=== PATIENT | female | born 1995 | race Caucasian/White ===

== ENCOUNTER 2017-01-18 23:29 | Emergency (ER) | payer MEDICAID ==
[~2017-01-18] VITALS: Ht 165.1 cm; Wt 75.0 kg
[~2017-01-18 23:29] MED LIST: ACYC400T2 PO; BACTDS PO; CIPR500T4 PO; IBUP-1542 PO; IBUP800T25 PO; INSU100I14 SQ; INSU100V14 SC; INSU100V18 SQ; INSU100V19 SQ; INSU500V SC; METF500T4 PO; MICO1KIT VAGINAL; NPH,100V SQ; NPH,100V10 SQ; ONDA4TAB35 PO; PREN-15 PO; PREN1TAB49 PO; PREN1TAB62 PO; ZOF8 PO
[2017-01-19] VITALS: Ht 165.1 cm; Wt 75.0 kg
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
[2017-01-19] MEDS ORDERED: ACETAMINOPHEN 325 MG TAB PO STA (03:35)
[2017-01-19 03:40] LABS: URINE BLOOD (Dip) POC Negative (NEGATIVE)
[2017-01-19] MEDS ORDERED: ONDANSETRON 4 MG INJ IV STA (03:40)
[2017-01-19 04:00] VITALS: TEMP 99.3
[2017-01-19] MEDS ORDERED: SOD CHLORIDE 0.9% 2,330 ML IV ONE (04:00)
[2017-01-19] MEDS ORDERED: morphine 2 MG INJ IV ONE (04:00)
[2017-01-19 04:25] LABS: ADD SCAN DIFF NO
--- NOTE | 2017-01-19 04:27 | RADRPT ---
PROCEDURE: XR Chest. CLINICAL INDICATION: Sepsis TECHNIQUE: Portable single view of the chest COMPARISON: 12/06/2015 FINDINGS: The cardiomediastinal silhouette appears within normal limits. The lungs are clear and no pleural e ffusion or significant edema is seen. No bony abnormality is seen. IMPRESSION: No definite acute pulmonary disease. RPTAT: HLBE Anum Stephenson Physician Date Time Electronically viewed and signed by Anum Stephenson, Physician on 01/19/2017 04:26 LE/
[2017-01-19 04:39] LABS: ALBUMIN 3.8 g/dl (3.3-4.9)
[2017-01-19 04:40] LABS: INR 1.02; POTASSIUM 3.2 mmol/L (3.5-5.1); PROTIME 13.4 Sec (12.2-14.2)
[2017-01-19 04:41] LABS: PARTIAL THROMBOPLASTIN TIME 35.4 Sec (25.0-35.0)
[2017-01-19 04:42] LABS: ALBUMIN/GLOBULIN RATIO 1.02; BILIRUBIN,INDIRECT 1.8 mg/dl (0-1.1); BILIRUBIN,TOTAL 1.8 mg/dl (0.2-1.3); CREATININE 0.4 mg/dl (0.44-1.00); TOTAL PROTEIN 7.5 g/dl (6.1-8.1)
[2017-01-19 04:43] LABS: CALCIUM 9.1 mg/dl (8.4-10.2)
[2017-01-19 04:44] LABS: BASOPHILS % 0.5 % (0.0-2.0); HEMOGLOBIN 13.5 g/dl (12.0-16.0); LYMPHOCYTES % 22.9 % (15.0-51.0); MEAN CORPUSCULAR HEMOGLOBIN 28.1 pg (29.0-33.0); MEAN CORPUSCULAR HGB CONC 34.6 g/dl (32.0-37.0); MEAN CORPUSCULAR VOLUME 81.3 fl (82.0-101.0); MEAN PLATELET VOLUME 11.7 fl (7.4-10.4); MONOCYTE # 0.6 10^3/ul (0.3-0.9); MONOCYTES % 6.7 % (0.0-11.0); NEUTROPHIL # 5.9 10^3/ul (1.6-7.5); NEUTROPHILS % 69.4 % (39.0-77.0); PLATELET COUNT 255 10^3/UL (140-415); RED CELL DISTRIBUTION WIDTH 11.8 % (11.5-14.5); WHITE BLOOD COUNT 8.5 10^3/ul (4.8-10.8)
[2017-01-19] MEDS ORDERED: INSULIN LISPRO 100 UNIT/ML VIAL SC ONE (05:00)
[2017-01-19] MEDS ORDERED: POTASSIUM CHLORIDE (SR) 20 MEQ TAB PO ONE (05:07)
[2017-01-19] MEDS ORDERED: OSLT75C PO (05:29)
[2017-01-19] MEDS ORDERED: IBUP-1542 PO (05:29)
[2017-01-19] MEDS ORDERED: IBUPROFEN 600 MG TAB PO ONE (05:30)
[2017-01-19] MEDS ORDERED: KETOROLAC 30 MG INJ IV ONE (05:31)
[2017-01-19 06:00] VITALS: BP 113/79; PULSE 90; RESP 16
== END 2017-01-19 08:03 | disposition home or self-care (01) ==
LOC: E/R 23:29
DX: R50.9 Fever, unspecified (principal); R11.2 Nausea with vomiting, unspecified; J02.9 Acute pharyngitis, unspecified; R05 Cough; E11.65 Type 2 diabetes mellitus with hyperglycemia; E87.6 Hypokalemia; R10.30 Lower abdominal pain, unspecified; Z79.84 Long term (current) use of oral hypoglycemic drugs; Z79.4 Long term (current) use of insulin
CPT/HCPCS: 36415; 71010; 80053; 81003; 82962; 83605; 84484; 85025; 85610; 85730; 87040; 87086; 93005; 96372; 96374; 96375; J1815; J1885; J2270; J2405; J7030; Z7502; Z7610

== ENCOUNTER 2017-03-03 21:29 | Emergency (ER) | payer MEDICAID ==
[~2017-03-03] VITALS: Ht 160 cm; Wt 73.5 kg
[~2017-03-03 21:29] MED LIST changes: +OSLT75C PO
[2017-03-03 21:33] VITALS: Ht 160 cm; Wt 73.5 kg
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
[2017-03-03 22:55] VITALS: RESP 18
[2017-03-03] MEDS ORDERED: ACETAMINOPHEN 500 MG TAB PO STA (22:57)
[2017-03-03] MEDS ORDERED: ALPRAZOLAM 1 MG TAB PO ONE (23:00)
--- NOTE | 2017-03-04 01:14 | RADRPT ---
PROCEDURE: CT Brain without contrast. CLINICAL INDICATION: HEAD INJURY TECHNIQUE: A multiplanar CT of the brain was performed on a CT scanner utilizing axial imaging fro m the skull base through the vertex without IV contrast. The CTDIvol is 5.01 mGy and the DLP is 720 .23 mGycm. One or more of the following dose reduction techniques were utilized: Automated exposur e control, adjustment of the mA and/or kV according to patient size, use of iterative reconstruction technique. COMPARISON: None FINDINGS: No evidence of intracranial hemorrhage or abnormal extra-axial fluid collection. The brain parenchyma is normal attenuation morphology with preservation of snowden white differentiatio n and age appropriate size of the ventricles and subarachnoid spaces. The basal cisterns, posterior fossa contents, brainstem, craniocervical junction, orbits, pituitary axis, paranasal sinuses, mastoid air cells, and calvarium are unremarkable. IMPRESSION: 1. No intracranial hemorrhage or acute intracranial abnormality. RPTAT:AAJJ Physician Jennie Date Time Electronically viewed and signed by Physician Jennie on 03/04/2017 01:14 CLYDE/
[2017-03-04] MEDS ORDERED: HYDR-906 PO (01:21)
[2017-03-04] MEDS ORDERED: ACET500C5 PO (01:21)
[2017-03-04 01:22] VITALS: PULSE 110
[2017-03-04] MEDS ORDERED: TRAM50TA2 PO (01:46)
== END 2017-03-04 01:49 | disposition home or self-care (01) ==
LOC: FTE 21:29
DX: S00.03XA Contusion of scalp, initial encounter (principal); E11.9 Type 2 diabetes mellitus without complications; R42 Dizziness and giddiness; Y04.2XXA Assault by strike against or bumped into by another person, initial encounter; Y92.9 Unspecified place or not applicable; Z79.84 Long term (current) use of oral hypoglycemic drugs; Z79.4 Long term (current) use of insulin
CPT/HCPCS: 70450; 93005; Z7610

== ENCOUNTER 2017-04-01 20:15 | Emergency (ER) | payer MEDICAID ==
[~2017-04-01] VITALS: Ht 160 cm; Wt 74.5 kg
[~2017-04-01 20:15] MED LIST changes: +TRAM50TA2 PO
[2017-04-01 20:21] VITALS: Ht 160 cm; Wt 74.5 kg
[2017-04-01] MEDS ORDERED: AZITHROMYCIN 250 MG TAB PO ONE (22:00)
--- NOTE | 2017-04-01 22:24 | ERD ---
ER Documentation Chief Complaint Date/Time DATE: 04/01/17 TIME: 22:17 Chief Complaint Pt with Vaginal cyst x 2 days. denies fever HPI 21-year-old female presents to emergency department for complaints of a bump on the left labia noticed 2 days ago, was shaving, noted a bump there, it was painful, sharp pain, 6/10 scale, is worse upon touching the area, noted to be draining some purulent discharge at this time. Patient denies any fever or chills. Patient denies any bumps in other part of the body. Patient also was recently sexually active but was not using any protection, patient's partner was diagnosed chlamydia, wants to be treated. Patient does not have any vaginal itching or vaginal discharge. Patient denies any dyspareunia. Patient is abdominal pain, flank pain. Patient currently has IUD. ROS All systems reviewed and are negative except as per history of present illness. Medications Home Meds Active Scripts Tramadol HCl (Tramadol HCl) 50 Mg Tablet, 50 MG PO Q6 Y for SEVERE PAIN LEVEL 7- 10, #20 TAB Prov:ISAIAS GARCES NP 03/04/17 Ibuprofen* (Motrin*) 600 Mg Tab, 600 MG PO Q6H Y for PAIN AND OR ELEVATED TEMP, #20 TAB Prov:BRETT DISLA MD 01/19/17 Oseltamivir Phosphate* (Tamiflu*) 75 Mg Capsule, 75 MG PO BID for 5 Days, CAP Prov:BRETT DISLA MD 01/19/17 Miconazole/Skin Cleanser No.17 (Monistat 3 Combo Pack) 1 Each Kit, 1 EACH VAGINAL QPM, #1 KIT Prov:CRISTIAN RUEDA NP 06/29/16 Ibuprofen* (Motrin*) 800 Mg Tab, 800 MG PO Q8 Y for PAIN AND OR ELEVATED TEMP, # 30 TAB Prov:CRISTIAN RUEDA NP 06/29/16 Sulfamethoxazole-Trimethoprim* (Bactrim* DS) 800-160 Mg Tab, 1 TAB PO BID for 10 Days, TAB Prov:JERONIMO RUSSELL PA-C 02/21/16 Ondansetron Hcl* (Zofran* ODT) 8 mg -ODT Tab.disper, 8 MG PO Q6 Y for NAUSEA AND /OR VOMITING, #10 TAB Prov:KATHRYN HOGAN MD 01/23/16 Ibuprofen* (Motrin*) 600 Mg Tab, 600 MG PO Q6, #20 TAB Prov:KATHRYN HOGAN MD 01/23/16 Ciprofloxacin Hcl* (Ciprofloxacin Hcl*) 500 Mg Tablet, 500 MG PO BID for 10 Days , TAB Prov:KATHRYN HOGAN MD 01/23/16 Ondansetron Hcl* (Zofran* ODT) 4 mg -ODT Tab.disper, 4 MG PO Q8 Y for NAUSEA AND /OR VOMITING, #30 TAB Prov:ISAIAS GARCES DISTANCE EDUCATION COORDINATOR 12/06/15 Ibuprofen* (Motrin*) 600 Mg Tab, 600 MG PO Q6H Y for PAIN AND OR ELEVATED TEMP, #30 TAB Prov:ISAIAS GARCES DISTANCE EDUCATION COORDINATOR 12/06/15 Reported Medications Insulin Lispro (Humalog) 100 U/Ml Insuln.pen, 0 SQ BREAKFAST AND DINNER 04/03/13 Metformin* (Glucophage*) 500 Mg Tab, 500 MG PO BID 04/03/13 Vit-Iron Fumarate-FA ( Vitamin Tablet) 1 Each Tablet, 1 EACH PO DAILY 04/03/13 Metformin* (Glucophage*) 500 Mg Tab, 500 MG PO AC MEALS 03/29/13 Nph, Human Insulin Isophane (Humulin N) 100 Units/Ml Vial, 32 SQ AC MEALS 03/29/13 Insulin Regular, Human (Humulin R) 100 Units/Ml Vial, 24 SC BEFORE MEALS 03/29/13 Vit/Fe Fumarate/Fa (Prenafirst Tablet) 1 Tab Tablet, 1 TAB PO 03/29/13 Metformin* (Glucophage*) 500 Mg Tab, 500 MG PO BID, #1 03/01/13 Insulin Lispro (Humalog) 100 U/Ml Vial, 0 SQ 03/01/13 Nph, Human Insulin Isophane* (Novolin N*) 100 U/Ml Vial, 0 SQ 03/01/13 Acyclovir* (Acyclovir*) 400 Mg Tablet, 400 MG PO TID, #1 02/15/13 Vits W-Ca,Fe,Fa(<1MG) () 1 Tab Tablet, 1 TAB PO DAILY, #1 02/15/13 Vits W-Ca,Fe,Fa(<1MG) () 1 Tab Tablet, 1 TAB PO DAILY 12/16/12 Insulin Glargine,Hum.rec.anlog (Lantus) 100 U/Ml Vial, 0 SQ 10/16/12 Insulin Regular, Human (Humulin R) 100 Units/Ml Vial, 0 SC 10/16/12 Allergies Allergies: Coded Allergies: Penicillins (Verified Allergy, Intermediate, SWELLING, 04/16/13) PMhx/Soc History of Surgery: Yes (c section 2012) Anesthesia Reaction: No Hx Neurological Disorder: No Hx Respiratory Disorders: No Hx Cardiac Disorders: No Hx Psychiatric Problems: No Hx Miscellaneous Medical Probl: Yes (diabetes) Hx Alcohol Use: Yes (socially) Hx Substance Use: Yes (marijuana occasionally) Hx Tobacco Use: No Smoking Status: Never smoker FmHx Family History: No coronary disease, No diabetes, No other Physical Exam Vitals Vital Signs Date Time Temp Pulse Resp B/P Pulse Ox O2 Delivery O2 Flow Rate FiO2 04/01/17 20:21 98.9 103 18 130/84 95 Physical Exam GENERAL: The patient is well developed and appropriate for usual state of health, in no apparent distress. CHEST: Clear to auscultation bilaterally. There are no rales, wheezes or rhonchi. HEART: Regular rate and rhythm. No murmurs, clicks, rubs or gallops. No S3 or S4. ABDOMEN: Soft, nontender and nondistended. Good bowel sounds. No rebound or guarding. No gross peritonitis. No gross organomegaly or masses. No Redd sign or McBurney point tenderness. BACK: No midline or flank tenderness. EXTREMITIES: Equal pulses bilaterally. There is no peripheral clubbing, cyanosis or edema. No focal swelling or erythema. Full range of motion. Grossly neurovascularly intact. NEURO: Alert and oriented. Cranial nerves 2-12 intact. Motor strength in all 4 extremities with 5/5 strength. Sensation grossly intact. Normal speech and gait. SKIN: There is no apparent rash or petechia. The skin is warm and dry. HEMATOLOGIC AND LYMPHATIC: There is no evidence of excessive bruising or lymphedema. No gross cervical, axillary, or inguinal lymphadenopathy. Vaginal: Noted draining soft tissue abscess of the left labial area, nonfluctuant, tender on palpation,the other labia is normal, nontender, no masses in the Bartholin's is noted. No other lesions noted. No cervical motion tenderness. No adnexal tenderness noted. No vaginal discharge noted. Results 24 hrs Laboratory Tests Test 04/01/17 22:32 Bedside Urine pH (LAB) 5.5 Bedside Urine Protein (LAB) Negative Bedside Urine Glucose (UA) 0.50% Bedside Urine Ketones (LAB) Negative Bedside Urine Blood Trace-intact Bedside Urine Nitrite (LAB) Negative Bedside Urine Leukocyte Esterase (L Negative Current Medications Medications (Trade) Dose Ordered Sig/Nikko Route PRN Reason Start Time Stop Time Status Last Admin Dose Admin Azithromycin (Zithromax) 1,000 mg ONCE ONCE PO 04/01/17 22:00 04/01/17 22:01 DC 04/01/17 22:03 Azithromycin was given here in emergency department for prophylactic treatment for chlamydia. Procedures/MDM Medical decision making: Patient's symptoms of cystitis consistent with a soft tissue abscess, most likely started as a folliculitis. It does not involve the Bartholin's gland, no cyst or abscess noted. No symptoms of sepsis at this time. Patient appears well and is hemodynamically stable. The abscess is already draining, incision and drainage site indicated at this time. Patient was treated prophylactically for chlamydia with azithromycin. Patient is allergic to penicillin. Patient will be given clindamycin to help treatment with a soft tissue abscess, is advised to follow-up with primary care doctor in 2 days for reevaluation of symptoms. Patient was advised to return to emergency department for any worsening symptoms. Departure Diagnosis: Primary Impression: Soft tissue abscess Additional Impression: STD exposure Condition: Stable Patient Instructions: Abscess, Antiobiotic Treatment Only, Std, Suspected ( Culture Only) ISAIAS GARCES NP April 01, 2017 22:23
[2017-04-01 22:31] LABS: URINE BLOOD (Dip) POC Trace-intact (NEGATIVE)
[2017-04-01] MEDS ORDERED: CLIN-73 PO (22:48)
[2017-04-01] MEDS ORDERED: HYDR-906 PO (22:48)
== END 2017-04-01 23:04 | disposition home or self-care (01) ==
LOC: FTE 20:15
DX: N76.4 Abscess of vulva (principal); E11.9 Type 2 diabetes mellitus without complications; Z20.2 Contact with and (suspected) exposure to infections with a predominantly sexual mode of transmission; Z79.4 Long term (current) use of insulin; Z79.84 Long term (current) use of oral hypoglycemic drugs
CPT/HCPCS: 81003; 87591; Z7502; Z7610; 99284

== ENCOUNTER 2017-10-07 10:06 | Emergency (ER) | payer MEDICAID ==
[~2017-10-07] VITALS: Ht 160 cm; Wt 79.5 kg
[~2017-10-07 10:06] MED LIST changes: +CLIN-73 PO; +HYDR-906 PO
[2017-10-07 10:08] VITALS: Ht 160 cm; Wt 79.5 kg
[2017-10-07] MEDS ORDERED: HYDR-906 PO (10:33)
[2017-10-07] MEDS ORDERED: HC30CR25 TOP (10:33)
[2017-10-07] MEDS ORDERED: BEN25 PO (10:33)
[2017-10-07] MEDS ORDERED: PRED20TA PO (10:33)
--- NOTE | 2017-10-07 10:40 | ERD ---
ER Documentation Chief Complaint Chief Complaint Vaginal irritation HPI 22-year-old female presents with vaginal irritation after using Bath bombs from [employer] Saturday night which was 3 nights ago. The patient woke up the next day with a blistering rash to her labia bilaterally that is described as burning. She reports that she went to the [place] emergency department and they did a wet mount and ruled out any bacterial or yeast infections and they recommended to apply diaper cream, as well as topical lidocaine. She states that the lidocaine only made the burning pain worse, and she has also been taking ibuprofen. She reports swelling to both sides, she denies any other application to the area. She has never used these basketball products before. She has not had any vaginal discharge, vaginal bleeding, pelvic pain otherwise. ROS All systems reviewed and are negative except as per history of present illness. Medications Home Meds Active Scripts Diphenhydramine Hcl* (Benadryl*) 25 Mg Cap, 25 MG PO Q6, #30 CAP Prov:BRITTANY JIMENEZ PA-C 10/07/17 Hydrocodone/Acetaminophen ([place] 5-325 Tablet) 1 Each Tablet, 1 TAB PO Q6H Y for PAIN, #10 TAB Prov:BRITTANY JIMENEZ PA-C 10/07/17 Hydrocortisone* Topical (Hydrocortisone* Topical) 2.5%-28.3 Gm Cream..g., 1 APPLIC TOP BID, #1 TUB Prov:BRITTANY JIMENEZ PA-C 10/07/17 Prednisone* (Prednisone*) 20 Mg Tab, 40 MG PO DAILY for 4 Days, TAB Prov:BRITTANY JIMENEZ PA-C 10/07/17 Hydrocodone/Acetaminophen ([place] 5-325 Tablet) 1 Each Tablet, 1 TAB PO Q6H Y for SEVERE PAIN LEVEL 7-10, #20 TAB Prov:ISAIAS GARCES NP 04/01/17 Clindamycin Hcl* (Clindamycin Hcl*) 300 Mg Capsule, 300 MG PO TID for 10 Days, CAP Prov:ISAIAS GARCES NP 04/01/17 Tramadol HCl (Tramadol HCl) 50 Mg Tablet, 50 MG PO Q6 Y for SEVERE PAIN LEVEL 7- 10, #20 TAB Prov:ISAIAS GARCES NP 03/04/17 Ibuprofen* (Motrin*) 600 Mg Tab, 600 MG PO Q6H Y for PAIN AND OR ELEVATED TEMP, #20 TAB Prov:BRETT DISLA MD 01/19/17 Oseltamivir Phosphate* (Tamiflu*) 75 Mg Capsule, 75 MG PO BID for 5 Days, CAP Prov:BRETT DISLA MD 01/19/17 Miconazole/Skin Cleanser No.17 (Monistat 3 Combo Pack) 1 Each Kit, 1 EACH VAGINAL QPM, #1 KIT Prov:CRISTIAN RUEDA NP 06/29/16 Ibuprofen* (Motrin*) 800 Mg Tab, 800 MG PO Q8 Y for PAIN AND OR ELEVATED TEMP, # 30 TAB Prov:CRISTIAN RUEDA NP 06/29/16 Sulfamethoxazole-Trimethoprim* (Bactrim* DS) 800-160 Mg Tab, 1 TAB PO BID for 10 Days, TAB Prov:JERONIMO RUSSELL PA-C 02/21/16 Ondansetron Hcl* (Zofran* ODT) 8 mg -ODT Tab.disper, 8 MG PO Q6 Y for NAUSEA AND /OR VOMITING, #10 TAB Prov:KATHRYN HOGAN MD 01/23/16 Ibuprofen* (Motrin*) 600 Mg Tab, 600 MG PO Q6, #20 TAB Prov:KATHRYN HOGAN MD 01/23/16 Ciprofloxacin Hcl* (Ciprofloxacin Hcl*) 500 Mg Tablet, 500 MG PO BID for 10 Days , TAB Prov:KATHRYN HOGAN MD 01/23/16 Ondansetron Hcl* (Zofran* ODT) 4 mg -ODT Tab.disper, 4 MG PO Q8 Y for NAUSEA AND /OR VOMITING, #30 TAB Prov:ISAIAS GARCES NP 12/06/15 Ibuprofen* (Motrin*) 600 Mg Tab, 600 MG PO Q6H Y for PAIN AND OR ELEVATED TEMP, #30 TAB Prov:ISAIAS GARCES NP 12/06/15 Reported Medications Insulin Lispro (Humalog) 100 U/Ml Insuln.pen, 0 SQ BREAKFAST AND DINNER 04/03/13 Metformin* (Glucophage*) 500 Mg Tab, 500 MG PO BID 04/03/13 Vit-Iron Fumarate-FA ( Vitamin Tablet) 1 Each Tablet, 1 EACH PO DAILY 04/03/13 Metformin* (Glucophage*) 500 Mg Tab, 500 MG PO AC MEALS 03/29/13 Nph, Human Insulin Isophane (Humulin N) 100 Units/Ml Vial, 32 SQ AC MEALS 03/29/13 Insulin Regular, Human (Humulin R) 100 Units/Ml Vial, 24 SC BEFORE MEALS 03/29/13 Vit/Fe Fumarate/Fa (Prenafirst Tablet) 1 Tab Tablet, 1 TAB PO 03/29/13 Metformin* (Glucophage*) 500 Mg Tab, 500 MG PO BID, #1 03/01/13 Insulin Lispro (Humalog) 100 U/Ml Vial, 0 SQ 03/01/13 Nph, Human Insulin Isophane* (Novolin N*) 100 U/Ml Vial, 0 SQ 03/01/13 Acyclovir* (Acyclovir*) 400 Mg Tablet, 400 MG PO TID, #1 02/15/13 Vits W-Ca,Fe,Fa(<1MG) () 1 Tab Tablet, 1 TAB PO DAILY, #1 02/15/13 Vits W-Ca,Fe,Fa(<1MG) () 1 Tab Tablet, 1 TAB PO DAILY 12/16/12 Insulin Glargine,Hum.rec.anlog (Lantus) 100 U/Ml Vial, 0 SQ 10/16/12 Insulin Regular, Human (Humulin R) 100 Units/Ml Vial, 0 SC 10/16/12 Allergies Allergies: Coded Allergies: Penicillins (Verified Allergy, Intermediate, SWELLING, 04/16/13) PMhx/Soc History of Surgery: Yes (c section 2012) Anesthesia Reaction: No Hx Neurological Disorder: No Hx Respiratory Disorders: No Hx Cardiac Disorders: No Hx Psychiatric Problems: No Hx Miscellaneous Medical Probl: Yes (diabetes) Hx Alcohol Use: Yes (socially) Hx Substance Use: Yes (marijuana occasionally) Hx Tobacco Use: No Physical Exam Vitals Vital Signs Date Time Temp Pulse Resp B/P Pulse Ox O2 Delivery O2 Flow Rate FiO2 10/07/17 10:08 98.3 115 18 151/96 96 Physical Exam General: Well-developed, well-nourished. The patient appears in no acute distress. HEENT: Head is normocephalic, atraumatic. No scleral icterus. Neck: Supple. Nontender. Lungs: Clear to auscultation. Normal air movement. Heart: Regular rate and rhythm. S1 and S2 are normal. No murmurs, gallops, or rubs. Abdomen: Nondistended. Nontender, soft exam: Internal portion of bilateral labia have blisters, it is erythematous, swollen and tender to palpation. There are no vesicles, no bleeding, no discharge Extremities: No clubbing or cyanosis. Moving extremities x 4. No weakness. Neurologic: Alert and oriented 3. No focal deficits. Normal speech and gait. Skin: Normal turgor. No rash or lesions. Results 24 hrs Current Medications Medications (Trade) Dose Ordered Sig/Nikko Route PRN Reason Start Time Stop Time Status Last Admin Dose Admin Acetaminophen/ Hydrocodone Bitart (Sharon (5/325)) 1 tab ONCE ONCE PO 10/07/17 11:00 10/07/17 11:01 Procedures/MDM 22-year-old female presents with reaction to the bath forms to the labia, patient has contact dermatitis. There are no lesions indicate HSV, abscess, cellulitis. The blisters appeared to be almost burn like, and she will be advised to discontinue the diaper cream as well as the lidocaine. The patient will be advised to apply a light amount of hydrocortisone cream twice a day with prednisone and Benadryl and she will also be given Sharon additionally for pain control. Departure Diagnosis: Primary Impression: Contact dermatitis Condition: Good Patient Instructions: Contact Dermatitis BRITTANY JIMENEZ PA-C Oct 07, 2017 10:40
[2017-10-07] MEDS ORDERED: HYDROCODONE/APAP (5/325) TAB PO ONE (11:00)
[2017-10-08] MEDS ORDERED: VALA10004 PO (10:33)
[2017-10-08] MEDS ORDERED: HYDR-906 PO (10:33)
[2017-10-08] MEDS ORDERED: AZIT250T94 PO (10:43)
== END 2017-10-07 10:42 | disposition home or self-care (01) ==
LOC: FTE 10:06
DX: L25.0 Unspecified contact dermatitis due to cosmetics (principal); E11.9 Type 2 diabetes mellitus without complications; Z79.4 Long term (current) use of insulin; Z79.84 Long term (current) use of oral hypoglycemic drugs
CPT/HCPCS: Z7502; Z7610; 99284

== ENCOUNTER 2017-10-08 09:47 | Emergency (ER) | payer MEDICAID ==
[~2017-10-08] VITALS: Wt 79.5 kg
[~2017-10-08 09:47] MED LIST changes: +BEN25 PO; +HC30CR25 TOP; +PRED20TA PO
[2017-10-08] MEDS ORDERED: KETOROLAC 60 MG INJ IM STA (10:11)
--- NOTE | 2017-10-08 10:11 | ERD ---
ER Documentation Chief Complaint Chief Complaint vaginal pain, irritation and pelvic pain HPI 22y/o female patient with no significant medical history, presents to the emergency department c/o gradual onset of vaginal irritation. The pain is sharp and burning, rated 9/10, radiated to perineum. The symptoms are probably caused by an allergic reaction to a soap and are associated with dysuria. Aggravating factors: Urinating. Alleviating factors: local ice. Denies fever, chills, N/V/ D. No history of previous episodes. Treatment attempted: Oral prednisone and topical steroids. Previous evaluation: Yesterday in the ER. History was given by patient. ROS SYSTEMIC symptoms: no fever, chills, no night sweats, no weight loss EYE symptoms: No blurred vision, no eye discharge OTOLARYNGEAL symptoms: No hearing loss. No ear pain, no sore throat CARDIOVASCULAR symptoms: No chest pain or discomfort, no palpitations. PULMONARY symptoms: No dyspnea, no cough, no wheezing. GASTROINTESTINAL symptoms: No abdominal pain, no nausea, no vomiting, no diarrhea MUSCULOSKELETAL symptoms: No arthralgias, no muscle aches. NEUROLOGY symptoms: No confusion, no syncope, no numbness or tingling. SKIN: No rashes Medications Home Meds Active Scripts Azithromycin* (Zithromax*) 250 Mg Tablet, 250 MG PO .ALANACK DIRECTED, #6 TAB TAKE 500 MG (2 TABS) THE FIRST DAY THEN 250 MG (1 TAB) DAYS 2-5 Prov:NORIS ALVAREZ MD 10/08/17 Hydrocodone/Acetaminophen ([place] 5-325 Tablet) 1 Each Tablet, 1 TAB PO Q6H Y for PAIN, #20 TAB Prov:NORIS ALVAREZ MD 10/08/17 Valacyclovir HCl (Valtrex) 1,000 Mg Tablet, 1000 MG PO TID for 7 Days, TAB Prov:NORIS ALVAREZ MD 10/08/17 Diphenhydramine Hcl* (Benadryl*) 25 Mg Cap, 25 MG PO Q6, #30 CAP Prov:BRITTANY JIMENEZ PA-C 10/07/17 Hydrocodone/Acetaminophen ([place] 5-325 Tablet) 1 Each Tablet, 1 TAB PO Q6H Y for PAIN, #10 TAB Prov:BRITTANY JIMENEZ PA-C 10/07/17 Hydrocortisone* Topical (Hydrocortisone* Topical) 2.5%-28.3 Gm Cream..g., 1 APPLIC TOP BID, #1 TUB Prov:BRITTANY JIMENEZ PA-C 10/07/17 Prednisone* (Prednisone*) 20 Mg Tab, 40 MG PO DAILY for 4 Days, TAB Prov:BRITTANY JIMENEZ PA-C 10/07/17 Hydrocodone/Acetaminophen ([place] 5-325 Tablet) 1 Each Tablet, 1 TAB PO Q6H Y for SEVERE PAIN LEVEL 7-10, #20 TAB Prov:ISAIAS GARCES NP 04/01/17 Clindamycin Hcl* (Clindamycin Hcl*) 300 Mg Capsule, 300 MG PO TID for 10 Days, CAP Prov:ISAIAS GARCES NP 04/01/17 Tramadol HCl (Tramadol HCl) 50 Mg Tablet, 50 MG PO Q6 Y for SEVERE PAIN LEVEL 7- 10, #20 TAB Prov:ISAIAS GARCES NP 03/04/17 Ibuprofen* (Motrin*) 600 Mg Tab, 600 MG PO Q6H Y for PAIN AND OR ELEVATED TEMP, #20 TAB Prov:BRETT DISLA MD 01/19/17 Oseltamivir Phosphate* (Tamiflu*) 75 Mg Capsule, 75 MG PO BID for 5 Days, CAP Prov:BRETT DISLA MD 01/19/17 Miconazole/Skin Cleanser No.17 (Monistat 3 Combo Pack) 1 Each Kit, 1 EACH VAGINAL QPM, #1 KIT Prov:CRISTIAN RUEDA NP 06/29/16 Ibuprofen* (Motrin*) 800 Mg Tab, 800 MG PO Q8 Y for PAIN AND OR ELEVATED TEMP, # 30 TAB Prov:CRISTIAN RUEDA NP 06/29/16 Sulfamethoxazole-Trimethoprim* (Bactrim* DS) 800-160 Mg Tab, 1 TAB PO BID for 10 Days, TAB Prov:JERONIMO RUSSELL PA-C 02/21/16 Ondansetron Hcl* (Zofran* ODT) 8 mg -ODT Tab.disper, 8 MG PO Q6 Y for NAUSEA AND /OR VOMITING, #10 TAB Prov:KATHRYN HOGAN MD 01/23/16 Ibuprofen* (Motrin*) 600 Mg Tab, 600 MG PO Q6, #20 TAB Prov:KATHRYN HOGAN MD 01/23/16 Ciprofloxacin Hcl* (Ciprofloxacin Hcl*) 500 Mg Tablet, 500 MG PO BID for 10 Days , TAB Prov:KATHRYN HOGAN MD 01/23/16 Ondansetron Hcl* (Zofran* ODT) 4 mg -ODT Tab.disper, 4 MG PO Q8 Y for NAUSEA AND /OR VOMITING, #30 TAB Prov:ISAIAS GARCES NP 12/06/15 Ibuprofen* (Motrin*) 600 Mg Tab, 600 MG PO Q6H Y for PAIN AND OR ELEVATED TEMP, #30 TAB Prov:ISAIAS GARCES NP 12/06/15 Reported Medications Insulin Lispro (Humalog) 100 U/Ml Insuln.pen, 0 SQ BREAKFAST AND DINNER 04/03/13 Metformin* (Glucophage*) 500 Mg Tab, 500 MG PO BID 04/03/13 Vit-Iron Fumarate-FA ( Vitamin Tablet) 1 Each Tablet, 1 EACH PO DAILY 04/03/13 Metformin* (Glucophage*) 500 Mg Tab, 500 MG PO AC MEALS 03/29/13 Nph, Human Insulin Isophane (Humulin N) 100 Units/Ml Vial, 32 SQ AC MEALS 03/29/13 Insulin Regular, Human (Humulin R) 100 Units/Ml Vial, 24 SC BEFORE MEALS 03/29/13 Vit/Fe Fumarate/Fa (Prenafirst Tablet) 1 Tab Tablet, 1 TAB PO 03/29/13 Metformin* (Glucophage*) 500 Mg Tab, 500 MG PO BID, #1 03/01/13 Insulin Lispro (Humalog) 100 U/Ml Vial, 0 SQ 03/01/13 Nph, Human Insulin Isophane* (Novolin N*) 100 U/Ml Vial, 0 SQ 03/01/13 Acyclovir* (Acyclovir*) 400 Mg Tablet, 400 MG PO TID, #1 02/15/13 Vits W-Ca,Fe,Fa(<1MG) () 1 Tab Tablet, 1 TAB PO DAILY, #1 02/15/13 Vits W-Ca,Fe,Fa(<1MG) () 1 Tab Tablet, 1 TAB PO DAILY 12/16/12 Insulin Glargine,Hum.rec.anlog (Lantus) 100 U/Ml Vial, 0 SQ 10/16/12 Insulin Regular, Human (Humulin R) 100 Units/Ml Vial, 0 SC 10/16/12 Allergies Allergies: Coded Allergies: Penicillins (Verified Allergy, Intermediate, SWELLING, 04/16/13) PMhx/Soc History of Surgery: Yes (c section 2012) Anesthesia Reaction: No Hx Neurological Disorder: No Hx Respiratory Disorders: No Hx Cardiac Disorders: No Hx Psychiatric Problems: No Hx Miscellaneous Medical Probl: Yes (diabetes) Hx Alcohol Use: Yes (socially) Hx Substance Use: Yes (marijuana occasionally) Hx Tobacco Use: No Physical Exam Vitals Vital Signs Date Time Temp Pulse Resp B/P Pulse Ox O2 Delivery O2 Flow Rate FiO2 10/08/17 09:49 97.0 112 20 122/73 98 Physical Exam Patient is in moderate distress due to pain, vital signs stable. Alert and fully oriented. EYES: PERRLA, EOMI, Sclera and conjunctiva appear normal. EARS: Canals clear, tympanic membranes WNL THROAT: Normal oropharynx. NECK: Supple, No lymphadenopathy. Full ROM without pain or tenderness. HEART: RRR, no rubs, murmurs, clicks or gallops. LUNGS: Clear to auscultation. ABDOMEN: Soft, non-tender without masses or hepatosplenomegaly. : Marked erythema and edema vulvar area, with diffuse vesicular lesions. EXTREMITIES: No edema bilaterally. Results 24 hrs Current Medications Medications (Trade) Dose Ordered Sig/Nikko Route PRN Reason Start Time Stop Time Status Last Admin Dose Admin Lidocaine (Lmx 4% Plus) 1 applic ONCE ONCE TOP 10/08/17 10:30 10/08/17 10:31 DC Ketorolac Tromethamine (Toradol) 60 mg ONCE STAT IM 10/08/17 10:11 10/08/17 10:13 DC 10/08/17 10:18 Procedures/MDM 22y/o female patient unremarkable medical history, presents to the ED c/o vulvar irritation for 5 days. Vital signs stable, Physical exam consistent with vaginitis with superimposed vesicular rash. Differential diagnosis include but not limited to: Infection bacterial/viral/fungal, Autoimmune contact dermatitis. Physical examination and clinical presentation consistent most likely with herpetic vaginitis likely with superimposed bacterial infection . During the ED course the patient received treatment with Toradol presenting overall improvement of the symptoms. Results and clinical impression discussed with patient who agrees with management. The patient is stable to be treated outpatient and will be discharged home with a Rx for Valtrex and amoxicillin Side effects of prescribed medications (headache, rash, nausea, vomiting, diarrhea) were reviewed. Side effects of prescribed opiates (drowsiness, habituation) were reviewed. The patient was instructed to follow up with the primary care provider in the next 48h. If symptoms persist, worsen or new symptoms develop, then patient should return to the ED immediately. Instructions explained and given to patient in Colombian with acknowledgment and demonstrated understanding. Disclaimer: Inadvertent spelling and grammatical errors are likely due to EHR/ dictation software use and do not reflect on the overall quality of patient care. Also, please note that the electronic time recorded on this note does not necessarily reflect the actual time of the patient encounter. Departure Diagnosis: Primary Impression: Pelvic pain in female Additional Impressions: Vaginitis Herpes infection Condition: Stable Patient Instructions: For Teens: Understanding HPV and Genital Warts Additional Instructions: Thank you very much for allowing us to participate in your care. Your health and safety is our top priority at [facility]. Have prescriptions filled and follow precisely the directions on the label. Follow-up with primary care provider during the next 4 days and bring all the information and medications prescribed. If illness has not improved in 2 days, then make an appointment with primary care provider. If the provider is unavailable, return to the Emergency Department immediately. NORIS ALVAREZ MD Oct 08, 2017 10:11
[2017-10-08] MEDS ORDERED: LIDOCAINE 4% CR TOP ONE (10:30)
[2017-10-08] MEDS ORDERED: VALA10004 PO (10:33)
[2017-10-08] MEDS ORDERED: HYDR-906 PO (10:33)
[2017-10-08] MEDS ORDERED: AZIT250T94 PO (10:43)
== END 2017-10-08 11:43 | disposition home or self-care (01) ==
LOC: FTE 09:47
DX: N76.0 Acute vaginitis (principal); B00.9 Herpesviral infection, unspecified; E11.9 Type 2 diabetes mellitus without complications; Z79.4 Long term (current) use of insulin; Z79.84 Long term (current) use of oral hypoglycemic drugs
CPT/HCPCS: 96372; J1885; Z7502; Z7610

== ENCOUNTER 2017-10-10 18:42 | Emergency (ER) | payer MEDICAID ==
[~2017-10-10] VITALS: Ht 162.6 cm; Wt 79.5 kg
[~2017-10-10 18:42] MED LIST changes: +AZIT250T94 PO; +VALA10004 PO
[2017-10-10 18:44] VITALS: Ht 162.6 cm; Wt 79.5 kg
[2017-10-10] MEDS ORDERED: KETOROLAC 30 MG INJ IV STA (19:54)
[2017-10-10] MEDS ORDERED: HYDROmorphONE 1 MG/ML SYG IM STA (19:54)
[2017-10-10] MEDS ORDERED: CEFTRIAXONE 1 GM/50 ML (PMX) 50 ML IVPB ONE (20:00)
[2017-10-10] MEDS ORDERED: HYDROmorphONE 1 MG/ML SYG IV STA (20:23)
[2017-10-10 20:42] LABS: BASOPHIL # 0.1 10^3/ul (0.0-0.1); BASOPHILS % 0.4 % (0.0-2.0); EOSINOPHILS % 0.1 % (0.0-7.0); HEMATOCRIT 37.5 % (37.0-47.0); LYMPHOCYTES # 3.3 10^3/ul (0.8-2.9); LYMPHOCYTES % 24.9 % (15.0-51.0); MEAN CORPUSCULAR HEMOGLOBIN 28.7 pg (29.0-33.0); MEAN CORPUSCULAR HGB CONC 34.7 g/dl (32.0-37.0); MEAN CORPUSCULAR VOLUME 82.8 fl (82.0-101.0); MEAN PLATELET VOLUME 11.9 fl (7.4-10.4); MONOCYTE # 0.9 10^3/ul (0.3-0.9); MONOCYTES % 6.7 % (0.0-11.0); NEUTROPHIL # 8.8 10^3/ul (1.6-7.5); NEUTROPHILS % 67.6 % (39.0-77.0); PLATELET COUNT 246 10^3/UL (140-415); RED BLOOD COUNT 4.53 10^6/ul (4.20-5.40); RED CELL DISTRIBUTION WIDTH 12.1 % (11.5-14.5); WHITE BLOOD COUNT 13.1 10^3/ul (4.8-10.8)
[2017-10-10 21:03] LABS: ALBUMIN 3.7 g/dl (3.3-4.9); ALBUMIN/GLOBULIN RATIO 1.15; BILIRUBIN,INDIRECT 0.7 mg/dl (0-1.1); BILIRUBIN,TOTAL 0.7 mg/dl (0.2-1.3); CALCIUM 9.1 mg/dl (8.4-10.2); CREATININE 0.62 mg/dl (0.44-1.00); POTASSIUM 4.1 mmol/L (3.5-5.1); TOTAL PROTEIN 6.9 g/dl (6.1-8.1)
[2017-10-10 21:04] LABS: ADD UMIC NO; UR ASCORBIC ACID NEGATIVE (NEGATIVE); UR BILIRUBIN (Dip) NEGATIVE (NEGATIVE); UR BLOOD (Dip) NEGATIVE (NEGATIVE); UR CLARITY CLEAR (CLEAR); UR COLOR YELLOW (YELLOW); UR GLUCOSE (Dip) 3+ mg/dL (NEGATIVE); UR KETONES (Dip) 1+ mg/dL (NEGATIVE); UR LEUKOCYTE ESTERASE (Dip) NEGATIVE Leu/ul (NEGATIVE); UR NITRITE (Dip) NEGATIVE (NEGATIVE); UR TOTAL PROTEIN (Dip) NEGATIVE (NEGATIVE); UR UROBILINOGEN (Dip) NEGATIVE (NEGATIVE)
--- NOTE | 2017-10-10 21:43 | RADRPT ---
PROCEDURE: US bladder CLINICAL INDICATION: Able to void bladder TECHNIQUE: Multiple real-time images were acquired COMPARISON: Pelvic ultrasound 06/29/2016 FINDINGS: No ureteral jets are seen in the bladder lumen. The bladder wall thickness is within normal limits. Prevoid bladder volume measures approximately 1118 ml. No post void bladder images were acquired. IMPRESSION: 1. Large bladder volume. No post void bladder images acquired. 2. No ureteral jets seen in the bladder lumen, a finding of uncertain etiology and clinical signific ance. RPTAT: TT Physician Jeffrey Date Time Electronically viewed and signed by Physician Jeffrey on 10/10/2017 21:43 JS/
[2017-10-10] MEDS ORDERED: CEPH-443 PO (21:52)
[2017-10-10] MEDS ORDERED: OXYC-279 PO (21:55)
[2017-10-10] MEDS ORDERED: AZITHROMYCIN 250 MG TAB PO ONE (22:00)
--- NOTE | 2017-10-10 23:59 | ERD ---
ER Documentation Chief Complaint Chief Complaint painful urination x 5 days HPI 22-year-old female complaining of severe herpes outbreak within the vaginal region. Patient states that she has extensive open sores and urinating is because extensive pain secondary to the urine hitting the open sores. Patient denies any fevers. Patient is currently taking valacyclovir but has had continued open sores and pain. ROS All systems reviewed and are negative except as per history of present illness. Medications Home Meds Active Scripts Oxycodone HCl/Acetaminophen (Percocet 5-325 mg Tablet) 1 Each Tablet, 1 EACH PO DAILY, #10 TAB Prov:ENA TAYLOR PA-C 10/10/17 Cephalexin* (Keflex*) 500 Mg Capsule, 500 MG PO QID for 7 Days, CAP Prov:ENA TAYLOR PA-C 10/10/17 Azithromycin* (Zithromax*) 250 Mg Tablet, 250 MG PO .ZPACK DIRECTED, #6 TAB TAKE 500 MG (2 TABS) THE FIRST DAY THEN 250 MG (1 TAB) DAYS 2-5 Prov:NORIS ALVAREZ MD 10/08/17 Hydrocodone/Acetaminophen ([place] 5-325 Tablet) 1 Each Tablet, 1 TAB PO Q6H Y for PAIN, #20 TAB Prov:NORIS ALVAREZ MD 10/08/17 Valacyclovir HCl (Valtrex) 1,000 Mg Tablet, 1000 MG PO TID for 7 Days, TAB Prov:NORIS ALVAREZ MD 10/08/17 Diphenhydramine Hcl* (Benadryl*) 25 Mg Cap, 25 MG PO Q6, #30 CAP Prov:BRITTANY JIMENEZ PA-C 10/07/17 Hydrocodone/Acetaminophen ([place] 5-325 Tablet) 1 Each Tablet, 1 TAB PO Q6H Y for PAIN, #10 TAB Prov:BRITTANY JIMENEZ PA-C 10/07/17 Hydrocortisone* Topical (Hydrocortisone* Topical) 2.5%-28.3 Gm Cream..g., 1 APPLIC TOP BID, #1 TUB Prov:BRITTANY JIMENEZ PA-C 10/07/17 Prednisone* (Prednisone*) 20 Mg Tab, 40 MG PO DAILY for 4 Days, TAB Prov:BRITTANY JIMENEZ PA-C 11/20/17 Hydrocodone/Acetaminophen ([place] 5-325 Tablet) 1 Each Tablet, 1 TAB PO Q6H Y for SEVERE PAIN LEVEL 7-10, #20 TAB Prov:ISAIAS GARCES CONE PICKER 04/01/17 Clindamycin Hcl* (Clindamycin Hcl*) 300 Mg Capsule, 300 MG PO TID for 10 Days, CAP Prov:ISAIAS GARCES CONE PICKER 04/01/17 Tramadol HCl (Tramadol HCl) 50 Mg Tablet, 50 MG PO Q6 Y for SEVERE PAIN LEVEL 7- 10, #20 TAB Prov:ISAIAS GARCES CONE PICKER 03/04/17 Ibuprofen* (Motrin*) 600 Mg Tab, 600 MG PO Q6H Y for PAIN AND OR ELEVATED TEMP, #20 TAB Prov:BRETT DISLA MD 01/19/17 Oseltamivir Phosphate* (Tamiflu*) 75 Mg Capsule, 75 MG PO BID for 5 Days, CAP Prov:BRETT DISLA MD 01/19/17 Miconazole/Skin Cleanser No.17 (Monistat 3 Combo Pack) 1 Each Kit, 1 EACH VAGINAL QPM, #1 KIT Prov:CRISTIAN RUEDA NP 06/29/16 Ibuprofen* (Motrin*) 800 Mg Tab, 800 MG PO Q8 Y for PAIN AND OR ELEVATED TEMP, # 30 TAB Prov:CRISTIAN RUEDA CONE PICKER 06/29/16 Sulfamethoxazole-Trimethoprim* (Bactrim* DS) 800-160 Mg Tab, 1 TAB PO BID for 10 Days, TAB Prov:JERONIMO RUSSELL PA-C 02/21/16 Ondansetron Hcl* (Zofran* ODT) 8 mg -ODT Tab.disper, 8 MG PO Q6 Y for NAUSEA AND /OR VOMITING, #10 TAB Prov:KATHRYN HOGAN MD 01/23/16 Ibuprofen* (Motrin*) 600 Mg Tab, 600 MG PO Q6, #20 TAB Prov:KATHRYN HOGAN MD 01/23/16 Ciprofloxacin Hcl* (Ciprofloxacin Hcl*) 500 Mg Tablet, 500 MG PO BID for 10 Days , TAB Prov:KATHRYN HOGAN MD 01/23/16 Ondansetron Hcl* (Zofran* ODT) 4 mg -ODT Tab.disper, 4 MG PO Q8 Y for NAUSEA AND /OR VOMITING, #30 TAB Prov:ISAIAS GARCES ROJAS Jack. CONE PICKER 12/06/15 Ibuprofen* (Motrin*) 600 Mg Tab, 600 MG PO Q6H Y for PAIN AND OR ELEVATED TEMP, #30 TAB Prov:ISAIAS GARCESYesica CONE PICKER 12/06/15 Reported Medications Insulin Lispro (Humalog) 100 U/Ml Insuln.pen, 0 SQ BREAKFAST AND DINNER 04/03/13 Metformin* (Glucophage*) 500 Mg Tab, 500 MG PO BID 04/03/13 Vit-Iron Fumarate-FA ( Vitamin Tablet) 1 Each Tablet, 1 EACH PO DAILY 04/03/13 Metformin* (Glucophage*) 500 Mg Tab, 500 MG PO AC MEALS 03/29/13 Nph, Human Insulin Isophane (Humulin N) 100 Units/Ml Vial, 32 SQ AC MEALS 03/29/13 Insulin Regular, Human (Humulin R) 100 Units/Ml Vial, 24 SC BEFORE MEALS 03/29/13 Vit/Fe Fumarate/Fa (Prenafirst Tablet) 1 Tab Tablet, 1 TAB PO 03/29/13 Metformin* (Glucophage*) 500 Mg Tab, 500 MG PO BID, #1 03/01/13 Insulin Lispro (Humalog) 100 U/Ml Vial, 0 SQ 03/01/13 Nph, Human Insulin Isophane* (Novolin N*) 100 U/Ml Vial, 0 SQ 03/01/13 Acyclovir* (Acyclovir*) 400 Mg Tablet, 400 MG PO TID, #1 02/15/13 Vits W-Ca,Fe,Fa(<1MG) () 1 Tab Tablet, 1 TAB PO DAILY, #1 02/15/13 Vits W-Ca,Fe,Fa(<1MG) () 1 Tab Tablet, 1 TAB PO DAILY 12/16/12 Insulin Glargine,Hum.rec.anlog (Lantus) 100 U/Ml Vial, 0 SQ 10/16/12 Insulin Regular, Human (Humulin R) 100 Units/Ml Vial, 0 SC 10/16/12 Allergies Allergies: Coded Allergies: Penicillins (Verified Allergy, Intermediate, SWELLING, 04/16/13) PMhx/Soc History of Surgery: Yes () Anesthesia Reaction: No Hx Neurological Disorder: No Hx Respiratory Disorders: No Hx Cardiac Disorders: No Hx Psychiatric Problems: No Hx Miscellaneous Medical Probl: Yes (DM,IUD) Hx Alcohol Use: Yes (Socially) Hx Substance Use: Yes (Marijuana occasionally) Hx Tobacco Use: No Smoking Status: Unknown if ever smoked Physical Exam Vitals Vital Signs Date Time Temp Pulse Resp B/P Pulse Ox O2 Delivery O2 Flow Rate FiO2 10/10/17 18:44 97.8 101 20 135/68 100 Physical Exam GENERAL: The patient is well-appearing, well-nourished, in no acute distress CHEST: Clear to auscultation bilaterally. There are no rales, wheezes or rhonchi. HEART: Regular rate and rhythm. No murmurs, clicks, rubs or gallops. No S3 or S4. ABDOMEN:Soft, nontender and nondistended. Good bowel sounds. No rebound or guarding. No gross peritonitis. No gross organomegaly or masses. No Redd sign or McBurney point tenderness. SKIN: There is no apparent rash or petechiae. The skin is warm and dry. : Diffuse open sores within the vaginal region. Beefy red edges superficial openings. Purulent discharge. Result Diagram: 10/10/17200610/10/172006 Results 24 hrs Laboratory Tests Test 10/10/17 20:07 10/10/17 20:45 White Blood Count 13.110^3/ul Red Blood Count 4.5310^6/ul Hemoglobin 13.0g/dl Hematocrit 37.5% Mean Corpuscular Volume 82.8fl Mean Corpuscular Hemoglobin 28.7pg Mean Corpuscular Hemoglobin Concent 34.7g/dl Red Cell Distribution Width 12.1% Platelet Count 66102^3/UL Mean Platelet Volume 11.9fl Neutrophils % 67.6% Lymphocytes % 24.9% Monocytes % 6.7% Eosinophils % 0.1% Basophils % 0.4% Nucleated Red Blood Cells % 0.0/100WBC Neutrophils # 8.810^3/ul Lymphocytes # 3.310^3/ul Monocytes # 0.910^3/ul Eosinophils # 0.010^3/ul Basophils # 0.110^3/ul Nucleated Red Blood Cells # 0.010^3/ul Sodium Level 137mmol/L Potassium Level 4.1mmol/L Chloride Level 98mmol/L Carbon Dioxide Level 28mmol/L Anion Gap 15 Blood Urea Nitrogen 11mg/dl Creatinine 0.62mg/dl Glucose Level 367mg/dl Calcium Level 9.1mg/dl Total Bilirubin 0.7mg/dl Direct Bilirubin 0.00mg/dl Indirect Bilirubin 0.7mg/dl Aspartate Amino Transf (AST/SGOT) 14IU/L Alanine Aminotransferase (ALT/SGPT) 33IU/L Alkaline Phosphatase 76IU/L Total Protein 6.9g/dl Albumin 3.7g/dl Globulin 3.20g/dl Albumin/Globulin Ratio 1.15 Lipase 26U/L Serum HCG, Qualitative NEGATIVE Urine Color YELLOW Urine Clarity CLEAR Urine pH 5.0 Urine Specific [place] 1.040 Urine Ketones 1+mg/dL Urine Nitrite NEGATIVEmg/dL Urine Bilirubin NEGATIVEmg/dL Urine Urobilinogen NEGATIVEmg/dL Urine Leukocyte Esterase NEGATIVELeu/ul Urine Hemoglobin NEGATIVEmg/dL Urine Glucose 3+mg/dL Urine Total Protein NEGATIVEmg/dl Current Medications Medications (Trade) Dose Ordered Sig/Nikko Route PRN Reason Start Time Stop Time Status Last Admin Dose Admin Hydromorphone HCl (Dilaudid) 1 mg ONCE STAT IM 10/10/17 19:54 10/10/17 20:24 DC Ketorolac Tromethamine 30 mg 30 mg ONCE STAT IV 10/10/17 19:54 10/10/17 19:55 DC 10/10/17 20:19 Ceftriaxone Sodium (Rocephin) 50 ml @ 100 mls/hr ONCE ONCE IVPB 10/10/17 20:00 10/10/17 20:29 DC 10/10/17 20:22 Hydromorphone HCl (Dilaudid) 1 mg ONCE STAT IV 10/10/17 20:23 10/10/17 20:25 DC 10/10/17 20:29 Azithromycin (Zithromax) 1,000 mg ONCE ONCE PO 10/10/17 22:00 10/10/17 22:01 DC 10/10/17 22:06 Procedures/MDM DIAGNOSTIC IMAGING REPORT Patient: AMARILIS FERNANDEZ : 1995 Age: 22 Sex: F MR #: [id number] DOS: 10/10/171951 Ordering MD: MAIKOL TAYLOR PA-C Location: [facility] Room/Bed: PROCEDURE: US bladder CLINICAL INDICATION: Able to void bladder TECHNIQUE: Multiple real-time images were acquired COMPARISON: Pelvic ultrasound 06/29/2016 FINDINGS: No ureteral jets are seen in the bladder lumen. The bladder wall thickness is within normal limits. Prevoid bladder volume measures approximately 1118 ml. No post void bladder images were acquired. IMPRESSION: 1. Large bladder volume. No post void bladder images acquired. 2. No ureteral jets seen in the bladder lumen, a finding of uncertain etiology and clinical significance. ER Course: Rocephin and azithromycin given in ED. Thomas catheter placed without complication. 1500 cc of urine removed from bladder. MDM: 22-year-old female complaining of severe pain with urination secondary to her herpes outbreak. I discharge patient with Thomas catheter she has been unable to urinate secondary to severe pain. Patient will return in 2 days for reevaluation. Patient did have purulent discharge noted around the open sores so I will treat for secondary bacterial infection. Patient's urine was sent for chlamydia screening. I have low suspicion for PID. Patient does not have severe abdominal pelvic pain and vital signs are stable. I have low suspicion for acute kidney injury as BUN and creatinine are within normal limits. I have low suspicion for UTI or pyelonephritis. Patient is discharged with strict ER precautions are recommended to follow-up with primary care within 1-2 days for close evaluation. Patient is told symptoms change or worsen to return to ER. All questions answered at discharge Departure Diagnosis: Primary Impression: Herpes simplex virus (HSV) infection of vagina Condition: Stable Patient Instructions: Herpes Genitalis, Hsv: Type Ii Referrals: [facility] YOU HAVE RECEIVED A MEDICAL SCREENING EXAM AND THE RESULTS INDICATE THAT YOU DO NOT HAVE A CONDITION THAT REQUIRES URGENT TREATMENT IN THE EMERGENCY DEPARTMENT. FURTHER EVALUATION AND TREATMENT OF YOUR CONDITION CAN WAIT UNTIL YOU ARE SEEN IN YOUR DOCTORS OFFICE WITHIN THE NEXT 1-2 DAYS. IT IS YOUR RESPONSIBILITY TO MAKE AN APPOINTMENT FOR FOLOW-UP CARE. IF YOU HAVE A PRIMARY DOCTOR --you should call your primary doctor and schedule an appointment IF YOU DO NOT HAVE A PRIMARY DOCTOR YOU CAN CALL OUR PHYSICIAN REFERRAL HOTLINE AT IF YOU CAN NOT AFFORD TO SEE A PHYSICIAN YOU CAN CHOSE FROM THE FOLLOWING [facility] [address] [facility] [address] [facility] [address] [facility] [address] [facility] [phone] [facility] [facility] [address] Additional Instructions: FOLLOW UP WITH YOUR PRIMARY CARE PHYSICIAN TOMORROW.Return to this facility if you are not improving as expected. ENA TAYLOR PA-C Oct 10, 2017 23:59
== END 2017-10-10 22:40 | disposition home or self-care (01) ==
LOC: FTE 18:42
DX: B00.9 Herpesviral infection, unspecified (principal); E11.9 Type 2 diabetes mellitus without complications; Z79.4 Long term (current) use of insulin; Z79.84 Long term (current) use of oral hypoglycemic drugs
CPT/HCPCS: 36415; 76856; 80053; 81003; 83690; 84703; 85025; 87591; 96374; 96375; J0696; J1170; J1885; Z7502; Z7610

== ENCOUNTER 2017-10-11 10:55 | Inpatient (IN) | payer MEDICAID ==
[~2017-10-11] VITALS: Ht 160 cm; Wt 80.0 kg
[~2017-10-11 10:55] MED LIST changes: +CEPH-443 PO; +OXYC-279 PO
[2017-10-11] MEDS ORDERED: ONDANSETRON 4 MG INJ IV STA (13:04)
[2017-10-11] MEDS ORDERED: morphine 4 MG/ML VIAL IV STA (13:04)
--- NOTE | 2017-10-11 13:29 | ERD ---
ER Documentation Chief Complaint Chief Complaint VAGINAL PAIN, BLEEDING HPI This a 22-year-old female who presents the emergency department today complaining of vaginal pain. She was diagnosed with herpes and she is taking the medication she has been prescribed. patient states that the pain medication that she is taking at home is not helping her. Denies any new symptoms. ROS All systems reviewed and are negative except as per history of present illness. Medications Home Meds Active Scripts Oxycodone HCl/Acetaminophen (Percocet 5-325 mg Tablet) 1 Each Tablet, 1 EACH PO DAILY, #10 TAB Prov:ENA TAYLOR PA-C 10/10/17 Cephalexin* (Keflex*) 500 Mg Capsule, 500 MG PO QID for 7 Days, CAP Prov:ENA TAYLOR PA-C 10/10/17 Azithromycin* (Zithromax*) 250 Mg Tablet, 250 MG PO .ZPACK DIRECTED, #6 TAB TAKE 500 MG (2 TABS) THE FIRST DAY THEN 250 MG (1 TAB) DAYS 2-5 Prov:NORIS ALVAREZ MD 10/08/17 Hydrocodone/Acetaminophen ([place] 5-325 Tablet) 1 Each Tablet, 1 TAB PO Q6H Y for PAIN, #20 TAB Prov:NORIS ALVAREZ MD 10/08/17 Valacyclovir HCl (Valtrex) 1,000 Mg Tablet, 1000 MG PO TID for 7 Days, TAB Prov:NORIS ALVAREZ MD 10/08/17 Diphenhydramine Hcl* (Benadryl*) 25 Mg Cap, 25 MG PO Q6, #30 CAP Prov:BRITTANY JIMENEZ PA-C 10/07/17 Hydrocodone/Acetaminophen ([place] 5-325 Tablet) 1 Each Tablet, 1 TAB PO Q6H Y for PAIN, #10 TAB Prov:BRITTANY JIMENEZ PA-C 10/07/17 Hydrocortisone* Topical (Hydrocortisone* Topical) 2.5%-28.3 Gm Cream..g., 1 APPLIC TOP BID, #1 TUB Prov:BRITTANY JIMENEZ PA-C 10/07/17 Prednisone* (Prednisone*) 20 Mg Tab, 40 MG PO DAILY for 4 Days, TAB Prov:BRITTANY JIMENEZ PA-C 10/07/17 Hydrocodone/Acetaminophen ([place] 5-325 Tablet) 1 Each Tablet, 1 TAB PO Q6H Y for SEVERE PAIN LEVEL 7-10, #20 TAB Prov:ISAIAS GARCES SINGLE SPINDLE SCREW MACHINE OPERATOR 04/01/17 Clindamycin Hcl* (Clindamycin Hcl*) 300 Mg Capsule, 300 MG PO TID for 10 Days, CAP Prov:ISAIAS GARCES SINGLE SPINDLE SCREW MACHINE OPERATOR 04/01/17 Tramadol HCl (Tramadol HCl) 50 Mg Tablet, 50 MG PO Q6 Y for SEVERE PAIN LEVEL 7- 10, #20 TAB Prov:ISAIAS GARCES SINGLE SPINDLE SCREW MACHINE OPERATOR 03/04/17 Ibuprofen* (Motrin*) 600 Mg Tab, 600 MG PO Q6H Y for PAIN AND OR ELEVATED TEMP, #20 TAB Prov:BRETT DISLA MD 01/19/17 Oseltamivir Phosphate* (Tamiflu*) 75 Mg Capsule, 75 MG PO BID for 5 Days, CAP Prov:BRETT DISLA MD 01/19/17 Miconazole/Skin Cleanser No.17 (Monistat 3 Combo Pack) 1 Each Kit, 1 EACH VAGINAL QPM, #1 KIT Prov:CRISTIAN RUEDA NP 06/29/16 Ibuprofen* (Motrin*) 800 Mg Tab, 800 MG PO Q8 Y for PAIN AND OR ELEVATED TEMP, # 30 TAB Prov:CRISTIAN RUEDA NP 06/29/16 Sulfamethoxazole-Trimethoprim* (Bactrim* DS) 800-160 Mg Tab, 1 TAB PO BID for 10 Days, TAB Prov:JERONIMO RUSSELL PA-C 02/21/16 Ondansetron Hcl* (Zofran* ODT) 8 mg -ODT Tab.disper, 8 MG PO Q6 Y for NAUSEA AND /OR VOMITING, #10 TAB Prov:KATHRYN HOGAN MD 01/23/16 Ibuprofen* (Motrin*) 600 Mg Tab, 600 MG PO Q6, #20 TAB Prov:KATHRYN HOGAN MD 01/23/16 Ciprofloxacin Hcl* (Ciprofloxacin Hcl*) 500 Mg Tablet, 500 MG PO BID for 10 Days , TAB Prov:KATHRYN HOGAN MD 01/23/16 Ondansetron Hcl* (Zofran* ODT) 4 mg -ODT Tab.disper, 4 MG PO Q8 Y for NAUSEA AND /OR VOMITING, #30 TAB Prov:ISAIAS GARCES MAE Jack. SINGLE SPINDLE SCREW MACHINE OPERATOR 12/06/15 Ibuprofen* (Motrin*) 600 Mg Tab, 600 MG PO Q6H Y for PAIN AND OR ELEVATED TEMP, #30 TAB Prov:ISAIAS GARCES. SINGLE SPINDLE SCREW MACHINE OPERATOR 12/06/15 Reported Medications Insulin Lispro (Humalog) 100 U/Ml Insuln.pen, 0 SQ BREAKFAST AND DINNER 04/03/13 Metformin* (Glucophage*) 500 Mg Tab, 500 MG PO BID 04/03/13 Vit-Iron Fumarate-FA ( Vitamin Tablet) 1 Each Tablet, 1 EACH PO DAILY 04/03/13 Metformin* (Glucophage*) 500 Mg Tab, 500 MG PO AC MEALS 03/29/13 Nph, Human Insulin Isophane (Humulin N) 100 Units/Ml Vial, 32 SQ AC MEALS 03/29/13 Insulin Regular, Human (Humulin R) 100 Units/Ml Vial, 24 SC BEFORE MEALS 03/29/13 Vit/Fe Fumarate/Fa (Prenafirst Tablet) 1 Tab Tablet, 1 TAB PO 03/29/13 Metformin* (Glucophage*) 500 Mg Tab, 500 MG PO BID, #1 03/01/13 Insulin Lispro (Humalog) 100 U/Ml Vial, 0 SQ 03/01/13 Nph, Human Insulin Isophane* (Novolin N*) 100 U/Ml Vial, 0 SQ 03/01/13 Acyclovir* (Acyclovir*) 400 Mg Tablet, 400 MG PO TID, #1 02/15/13 Vits W-Ca,Fe,Fa(<1MG) () 1 Tab Tablet, 1 TAB PO DAILY, #1 02/15/13 Vits W-Ca,Fe,Fa(<1MG) () 1 Tab Tablet, 1 TAB PO DAILY 12/16/12 Insulin Glargine,Hum.rec.anlog (Lantus) 100 U/Ml Vial, 0 SQ 10/16/12 Insulin Regular, Human (Humulin R) 100 Units/Ml Vial, 0 SC 10/16/12 Allergies Allergies: Coded Allergies: Penicillins (Verified Allergy, Intermediate, SWELLING, 04/16/13) PMhx/Soc History of Surgery: Yes () Anesthesia Reaction: No Hx Neurological Disorder: No Hx Respiratory Disorders: No Hx Cardiac Disorders: No Hx Psychiatric Problems: No Hx Miscellaneous Medical Probl: Yes (DM,IUD) Hx Alcohol Use: Yes (Socially) Hx Substance Use: Yes (Marijuana occasionally) Hx Tobacco Use: No Physical Exam Vitals Vital Signs Date Time Temp Pulse Resp B/P Pulse Ox O2 Delivery O2 Flow Rate FiO2 10/11/17 13:30 85 24 99 Room Air 10/11/17 10:57 98.0 97 18 133/87 97 Physical Exam Const: NAD Head: Atraumatic Eyes: Normal Conjunctiva ENT: Normal External Ears, Nose and Mouth. Neck: Full range of motion..~ No meningismus. Resp: Clear to auscultation bilaterally Cardio: Regular rate and rhythm, no murmurs Abd: Soft, non tender, non distended. Normal bowel sounds. : Vaginal exam with evidence of herpetic lesions bilateral labia with purulent drainage. Skin: No petechiae or rashes Back: No midline or flank tenderness Ext: No cyanosis, or edema Neur: Awake and alert Psych: Normal Mood and Affect Results 24 hrs Current Medications Medications (Trade) Dose Ordered Sig/Nikko Route PRN Reason Start Time Stop Time Status Last Admin Dose Admin Morphine Sulfate (morphine) 4 mg ONCE STAT IV 10/11/17 13:04 10/11/17 13:06 DC 10/11/17 13:28 Ondansetron HCl (Zofran Inj) 4 mg ONCE STAT IV 10/11/17 13:04 10/11/17 13:06 DC 10/11/17 13:28 Lorazepam (Ativan) 1 mg ONCE ONCE IV 10/11/17 13:30 10/11/17 13:31 DC 10/11/17 13:28 Ondansetron HCl (Zofran Inj) 4 mg BRIDGE ORDER PRN IV NAUSEA AND/OR VOMITING 10/11/17 13:30 10/12/17 13:29 Acetaminophen (Tylenol Tab) 650 mg ER BRIDGE PRN PO MILD PAIN/FEVER 10/11/17 13:30 10/12/17 13:29 Procedures/MDM This is a 22-year-old female presents the emergency department today complaining of severe pain in her vaginal area after being diagnosed with herpes. Upon review of patient's medical records this is the patient's fourth visit to the emergency department for the same complaint. Patient has previously taken Valtrex and amoxicillin. Patient was last seen here yesterday and was given 2 mg of Dilaudid, Toradol and azithromycin to treat a possible secondary infection. Patient indicates that she is taking the Valtrex and has 1 pill left and is taking the Keflex as prescribed. A Thomas catheter had to be placed yesterday as patient was complaining that she had increased vaginal pain when the urine was dripping on her vagina. Today on physical exam patient continues to have evidence of herpetic lesions. I did obtain an HSV swab. Patient had been also seen at outside hospitals and had negative wet gama. Patient indicated that the [place] that she takes at home was not helping and had been given a prescription for Percocet but there was no pharmacy that was able to fill it yesterday as she was there for and also there were no other pharmacies that had it in stock. Patient presents today for continued severe pain. I did obtain a scheduling representative consult from Dr. Smith who does not feel that there is any other further management on his part from a gynecology standpoint. He has requested that the patient admitted to medicine service for pain management. Discussed the patient with Dr. Chicas and he is agreed to admit the patient. Yesterday patient had a complete laboratory workup that showed a mildly elevated white blood cell count otherwise her laboratory workup is within normal limits. Her serum test was negative yesterday. Dr. Chicas does not feel that she requires repeat laboratory workup at this time.patient agreed to be admitted to the hospital. patient was given morphine and Zofran and Ativan here in the emergency department Any further orders placed will be placed by Dr. Chicas or the admitting physician Departure Diagnosis: Primary Impression: Pain Additional Impression: Herpes simplex virus (HSV) infection of vagina Condition: CALOS West PA-C Oct 11, 2017 13:29
[2017-10-11] MEDS ORDERED: ACETAMINOPHEN 325 MG TAB PO PRN ×2 (13:30→15:30)
[2017-10-11] MEDS ORDERED: LORAZEPAM 2 MG INJ IV ONE (13:30)
[2017-10-11] MEDS ORDERED: ONDANSETRON 4 MG INJ IV PRN (13:30)
--- NOTE | 2017-10-11 13:32 | QN ---
Documentation Comment I have seen and evaluated the patient along with the PA and/or NUTRITIONAL YEAST SUPERVISOR provider. I agree with the evaluation and plan of care. Please see their documentation for full ER course and evaluation. In short: The patient has now 4 visits over the last 4 days for pain related to what appears to be genital herpes. On exam: Genital exam was deferred given that the patient had already been evaluated by the PA and COLLAR TACKER team. Assessment and plan: Given the patient's persistent pain the COLLAR TACKER team recommends the patient be admitted for pain control. The patient is currently already taking antivirals which is reasonable. No evidence of systemic illness. The patient is extremely anxious and uncomfortable. She is given pain medication and Ativan. Accepting care team and consultations: I discussed the current laboratory data, diagnostic imaging and emergency care provided. Admitting team: Dr. Welch Admitting team indication: Insurance directed COLLAR TACKER Dr. Iyer evaluated the patient SARAH MCCRARY MD Oct 11, 2017 13:32
[2017-10-11 14:31] VITALS: TEMP 98.9
--- NOTE | 2017-10-11 15:05 | CONS ---
DATE OF ADMISSION: 10/11/2017 DATE OF CONSULTATION: HISTORY OF PRESENT ILLNESS: This is a consult for a 22-year-old admitted a few times, with a few re cent visits to the emergency room, is suffering from what appears to be genital herpes. The patient is in excruciating pain. No other associated symptoms. PAST MEDICAL HISTORY: Recurrent herpes. PAST SURGICAL HISTORY: Denies. ALLERGIES: NKDA. PHYSICAL EXAMINATION: VITAL SIGNS: Stable. GENITAL: Showed both major and bilateral labia major involvement and multiple lesions on both sides . ASSESSMENT AND PLAN: A 22-year-old with possible genital herpes versus various skin disorders. The patient is already on Valtrex and Zithromax. The pain is excruciating. I do recommend admission a nd pain control for the patient. Also, dermatology consult is recommended to rule out pemphigoid or pemphigus skin disorders, and continue the same antibiotics. Thank you very and please contact us at [phone] for any further questions. Dictated By: NELLIE CARTY/IRENE Conf#: [id number] DID#: [id number]
--- NOTE | 2017-10-11 15:28 | HP ---
Date/Time of Note Date/Time of Note DATE: 10/11/17 TIME: 15:25 Assessment/Plan VTE Prophylaxis VTE Prophylaxis Intervention: ambulation Assessment/Plan Chief Complaint/Hosp Course 1. Vaginal pain likely secondary to herpes Pain control with Dilaudid Acyclovir and Neurontin 2. Prediabetes Continue home metformin Prophylaxis: Ambulation Problems: HPI/ROS Admit Date/Time Admit Date/Time October 11, 2017 Hx of Present Illness Patient is a 22-year-old female with a history of prediabetes on metformin. Patient presents with several days of worsening vaginal pain, she was diagnosed with vaginal herpes and was started on acyclovir with only mild improvement of symptoms. Patient denies any history of herpes in the past, she is and has intercourse with only her partner. Patient is almost done with her course of acyclovir, she had multiple visits the ED for vaginal pain is being admitted for pain control and treatment of herpes. ROS Constitutional: improved, no complaints Eyes: no complaints ENT: no complaints Respiratory: no complaints Cardiovascular: no complaints Gastrointestinal: no complaints Genitourinary: other (Vaginal pain and redness) Musculoskeletal: no complaints Skin: no complaints Neurologic: no complaints Endocrine: no complaints Lymphatic: no complaints Psychological: nl mood/affect, no complaints Immunologic: no complaints PMH/Family/Social Past Medical History Prediabetes Past Surgical History Past Surgical Hx: no surgical history Family History Significant Family History: no pertinent family hx Social History Smoking Status: Never smoker Drug Use: none Exam/Review of Systems Vital Signs Vitals Vital Signs Date Time Temp Pulse Resp B/P Pulse Ox O2 Delivery O2 Flow Rate FiO2 10/11/17 14:31 98.9 84 20 126/79 99 Room Air Exam Constitutional: alert, oriented Head: normocephalic Respiratory: clear to auscultation Cardiovascular: regular rate and rhythm Gastrointestinal: soft, No distended Genitourinary - Female: other (Vaginal erythema with few lesions) Musculoskeletal: nl extremities to inspection ALE CASON Oct 11, 2017 15:28
[2017-10-11] MEDS ORDERED: HYDROCODONE/APAP (5/325) TAB PO PRN (15:30)
[2017-10-11] MEDS ORDERED: HYDROmorphONE 1 MG/ML SYG IV PRN (15:30)
[2017-10-11] MEDS ORDERED: DOCUSATE SODIUM 100 MG CAP PO PRN (15:30)
[2017-10-11] MEDS ORDERED: NACL 0.9% 3 ML SYG IV SCH (15:30)
[2017-10-11] MEDS ORDERED: MAGNESIUM HYDROXIDE 30ML CUP PO PRN (15:30)
[2017-10-11] MEDS: GABAPENTIN 300 MG CAP PO SCH (15:53)
[2017-10-11] MEDS ORDERED: GLUCAGON 1 MG INJ IM PRN (16:00)
[2017-10-11] MEDS ORDERED: DEXTROSE 50% 50 ML SYRINGE IV PRN ×2 (16:00)
[2017-10-11] MEDS ORDERED: GLUCOSE GEL 15 GRAM TUBE BUCCAL PRN (16:00)
[2017-10-11] MEDS ORDERED: GLUCOSE GEL 15 GRAM TUBE PO PRN ×2 (16:00)
[2017-10-11 16:18] VITALS: Ht 160 cm; Wt 80.0 kg
[2017-10-11 16:27] VITALS: BP 135/94; PULSE 87; RESP 17
[2017-10-11] MEDS ORDERED: INFLUENZA VIRUS VACCINE 0.5 ML SYG IM* ONE (17:00)
[2017-10-11] MEDS: metFORMIN 500 MG TAB PO SCH ×2 (17:15→17:17)
--- NOTE | 2017-10-11 17:55 | CONS ---
Date/Time of Note Date/Time of Note DATE: 10/11/17 TIME: 17:55 Assessment/Plan Assessment/Plan Chief Complaint/Hosp Course ID PROGRESS NOTE TOTAL ABX DAY # 1 CURRENT ABX=> Acyclovir 24H INTERVAL SUMMARY * Severe painful labial lesions, tells me she is not convinced they are HSV "I don't know how, who I would have gotten them from", Tells me she has hx of Zoster outbreaks in past on LUEXT/Forearm * HSV culture obtained in ED/Fastrack * Will send fungal/bacterial cx * She is not able to tolerate topica Desitin/Zinc Oxide -- not able to tolerate burning from urine; hence FC was placed GENERAL: VSS, NAD, Overweight HEENT: Unremarkable except wears corrected glasses NECK: Trach midline, full ROM CHEST: Rise symmetrical without dyspnea on observation ABDOMEN: Soft, : Labia w/pain upon touching -> she can barely spead her outer labia without severe pain - swab of labial fold obtained for bacterial/fungal cx EXTREMITIES: Warm,(+) moves extremities, no edema SKIN: No diaphoresis, no rash ID ASSESSMENT: 22 yo F admit with: 1. Acute recurrent vulvar skin lesions: Contact dermatitis vs HSV vs bacterial vs fungal vs ? other * Bilateral labia major and labia minor involvement w/multiple lesions on both sides. * "Purulent discharge" per patient w/crusted lesions * Seen in [facility] ED on 10/07 where she presented w/ vaginal irritation after using Bath salts -> per ED provider notes she developed a blistering rash to her labia bilaterally that is described as burning. Per notes she went to the [place] emergency department and they did a wet mount and ruled out any bacterial or yeast infections and they recommended to apply diaper cream, as well as topical lidocaine. Patient told me should could not tolerate the zinc oxide topical cream nor the Lidocaine (I explained Lidocaine in to for use on open skin lesions). 2. Severe pain due #1 3. Diabetes 4. Hx of Migraines 5. Hx of PTSD + depression 6. Hx of 04/16/13 INVASIVES: PIV, FC ABX ALLERGY: PCN TOTAL ABX DAY # CURRENT ABX=> Acyclovir IV + Lotrisone topical (antifungal) + Doxycyline 100mg IV Q12H + Monospot Vag suppository x 3 days ID PLAN 1. Await HSV culture, Bacteria;/fungal swab cx sent tonight to micro 2. Continue Acyclovir IV + add Doxycycline to cover concern bacterial cellulitis + add topical lotrisone and empiric Monospot Vag suppositories x 3 days 3. Await improvement and micro results. 4. CONSERVATIVE MEASURES * Baking Soda soaks. Soak in lukewarm (not hot) bath water with 4-5 tablespoons of baking soda to help soothe vulvar itching and burning. Soak 1 to 3 times a day for 10 minutes. If you are using a sitz bath, use 1 to 2 teaspoons of baking soda. * You can use Tucks hemorrhoid pads. If urine causes burning of the skin, pour lukewarm water over the vulva while urinating. Pat dry rather than wiping. Problems: Consultation Date/Type/Reason Admit Date/Time Oct 11, 2017 at 13:25 Initial Consult Date Exam/Review of Systems Vital Signs Vitals Vital Signs Date Time Temp Pulse Resp B/P Pulse Ox O2 Delivery O2 Flow Rate FiO2 10/11/17 16:27 97.9 87 17 135/94 98 Room Air Medications Medications Current Medications Ondansetron HCl (Zofran Inj) 4 mg Q6H PRN IV NAUSEA AND/OR VOMITING; Start at 15:30 Acetaminophen (Tylenol Tab) 650 mg Q6H PRN PO PAIN LEVEL 1-3 OR FEVER; Start 10/11/17 at 15:30 Acetaminophen/ Hydrocodone Bitart ([place] (5/325)) 1 tab Q6H PRN PO MODERATE PAIN LEVEL 4-6; Start 10/11/17 at 15:30 Docusate Sodium (Colace) 100 mg Q12H PRN PO CONSTIPATION; Start 10/11/17 at 15 :30 Magnesium Hydroxide 30 ml 30 ml DAILY PRN PO CONSTIPATION; Start 10/11/17 at 15:30 Acyclovir/Sodium Chloride (Zovirax/NS) 100 ml @ 100 mls/hr Q8 IVPB ; Start at 22:00 Hydromorphone HCl (Dilaudid) 1 mg Q3H PRN IV PAIN Last administered on t 15:45; Admin Dose 1 MG; Start 10/11/17 at 15:30 Gabapentin (Neurontin) 300 mg DAILY PO Last administered on 10/11/17t 15:53; Admin Dose 300 MG; Start 10/11/17 at 15:30 Miscellaneous Information 1 ea NOTE XX ; Start 10/11/17 at 16:00 Glucose (Glutose) 15 gm Q15M PRN PO DECREASED GLUCOSE; Start 10/11/17 at 16:00 Glucose (Glutose) 22.5 gm Q15M PRN PO DECREASED GLUCOSE; Start 10/11/17 at 16: 00 Dextrose (D50w Syringe) 25 ml Q15M PRN IV DECREASED GLUCOSE; Start 10/11/17 at 16:00 Dextrose (D50w Syringe) 50 ml Q15M PRN IV DECREASED GLUCOSE; Start 10/11/17 at 16:00 Glucagon (Glucagen) 1 mg Q15M PRN IM DECREASED GLUCOSE; Start 10/11/17 at 16: 00 Glucose (Glutose) 15 gm Q15M PRN BUCCAL DECREASED GLUCOSE; Start 10/11/17 at 16:00 Betamethasone/ Clotrimazole (Lotrisone Cr) 1 applic BID TOP ; Start 10/11/17 at 21:00 Miconazole 1 supp 1 supp HS VAG ; Start 10/11/17 at 21:00; Status UNV Doxycycline Hyclate/Sodium Chloride (Vibramycin/NS) 250 ml @ 250 mls/hr Q12 IVPB ; Start 10/11/17 at 21:00; Status UNV KELSEY MADRID SEXUAL HEALTH PHYSICIAN Oct 11, 2017 17:55
[2017-10-11 20:00] VITALS: BP 126/80; RESP 20
--- NOTE | 2017-10-11 20:07 | CONS ---
DATE OF ADMISSION: 10/11/2017 DATE OF CONSULTATION: 10/11/2017 INFECTIOUS CONSULTATION: REASON FOR CONSULTATION: Antibiotic management. HISTORY OF PRESENT ILLNESS: Corrina Stein is a 22-year-old female who comes in with vaginal pain secondary to herpes simplex. PAST MEDICAL PROBLEMS: Include: 1. History of prediabetes, on metformin. 2. History of vaginal herpes. She was started on acyclovir with only mild improvement in symptoms. Patient is and has intercourse only with her partner. She has been on a course of acyclov ir and has had multiple visits to the emergency room with vaginal pain and is now admitted for pain control and treatment of her herpes. PAST MEDICAL HISTORY: Operations none. FAMILY HISTORY: Noncontributory. SOCIAL HISTORY: She does not smoke, drink or abuse drugs. ALLERGIES: NONE TO PENICILLIN, SULFA OR FOODS. MEDICATIONS: Per chart. REVIEW OF SYSTEMS: As per HPI. PHYSICAL EXAMINATION: GENERAL: The patient is a well-developed, well-nourished female who is alert, responsive, in no acu te distress. VITAL SIGNS: Stable. She is afebrile. SKIN: Without generalized rash. HEENT: Within normal limits. NECK: Supple. LYMPH NODES: None palpable. CHEST: Decreased breath sounds at the bases. HEART: Without murmur or gallop. ABDOMEN: Soft, nontender, without organosplenomegaly or masses. EXTREMITIES: Without cyanosis, clubbing, or edema. RECTAL: Deferred. GENITOURINARY: The vaginal area is red. She has a few herpetic lesions. NEUROLOGIC: No focal neurological abnormalities. IMPRESSION AND PLAN: The patient was started on acyclovir. She probably should be cultured for yea st as well. We will continue her on acyclovir and pain medicines as per the hospitalist. She was s een by ____GYN. Mentioned that she has both major bilateral leg edema and major multiple lesion s on both sides. She is on Valtrex and azithromycin. Dermatological consultation was recommended t o rule out pemphigoid or pemphigus skin disorders. However, it is most likely that we are dealing w ith herpes. I will dictate my findings to the hospitalist. Dictated By: MIRA OVALLES MD, JD/IRENE Conf#: [id number] DID#: [id number] CC: SUMAN JIMEENZ MD;*[facility]*
[2017-10-11] MEDS: HYDROmorphONE 1 MG/ML SYG IV PRN ×2 (20:44→23:05)
[2017-10-11] MEDS: BETAMETHASONE/CLOTRIMAZOLE 15 GM CR TOP SCH (20:44)
[2017-10-11] MEDS: DOXYCYCLINE 100 MG in SOD CHLORIDE 0.9% 250 ML IVPB SCH (21:09)
[2017-10-11] MEDS: MICONAZOLE 200 MG VAG SUPP VAG SCH (21:09)
[2017-10-11] MEDS ORDERED: ACYCLOVIR 500 MG in SOD CHLORIDE 0.9% 100 ML IVPB SCH (22:00)
[2017-10-11] MEDS: ACYCLOVIR 500 MG in SOD CHLORIDE 0.9% 100 ML IVPB SCH (23:24)
[2017-10-12] MEDS: HYDROmorphONE 1 MG/ML SYG IV PRN ×6 (01:08→21:03)
[2017-10-12 02:00] VITALS: BP 121/75; RESP 20
[2017-10-12] MEDS: ACYCLOVIR 500 MG in SOD CHLORIDE 0.9% 100 ML IVPB SCH ×3 (05:51→22:56)
[2017-10-12 06:34] LABS: BASOPHIL # 0.1 10^3/ul (0.0-0.1); BASOPHILS % 0.7 % (0.0-2.0); EOSINOPHILS # 0.1 10^3/ul (0.0-0.5); EOSINOPHILS % 1.5 % (0.0-7.0); HEMATOCRIT 36.6 % (37.0-47.0); HEMOGLOBIN 12.1 g/dl (12.0-16.0); LYMPHOCYTES # 4.5 10^3/ul (0.8-2.9); LYMPHOCYTES % 47.5 % (15.0-51.0); MEAN CORPUSCULAR HEMOGLOBIN 28.1 pg (29.0-33.0); MEAN CORPUSCULAR HGB CONC 33.1 g/dl (32.0-37.0); MEAN CORPUSCULAR VOLUME 85.1 fl (82.0-101.0); MEAN PLATELET VOLUME 11.9 fl (7.4-10.4); MONOCYTE # 0.6 10^3/ul (0.3-0.9); MONOCYTES % 6.3 % (0.0-11.0); NEUTROPHIL # 4.1 10^3/ul (1.6-7.5); NEUTROPHILS % 43.4 % (39.0-77.0); PLATELET COUNT 245 10^3/UL (140-415); WHITE BLOOD COUNT 9.5 10^3/ul (4.8-10.8)
[2017-10-12 07:02] LABS: CREATININE 0.62 mg/dl (0.44-1.00); MAGNESIUM 1.4 mg/dl (1.7-2.5); PHOSPHORUS 4.8 mg/dl (2.5-4.9); POTASSIUM 4.1 mmol/L (3.5-5.1)
[2017-10-12] MEDS: DOXYCYCLINE 100 MG in SOD CHLORIDE 0.9% 250 ML IVPB SCH ×2 (08:41→21:41)
[2017-10-12] MEDS: GABAPENTIN 300 MG CAP PO SCH (08:41)
[2017-10-12] MEDS: metFORMIN 500 MG TAB PO SCH ×2 (08:42→17:58)
[2017-10-12] MEDS: BETAMETHASONE/CLOTRIMAZOLE 15 GM CR TOP SCH ×3 (09:00→21:42)
[2017-10-12 09:50] VITALS: BP 107/71; RESP 18
[2017-10-12] MEDS ORDERED: MAGNESIUM SULFATE 4 GM/100 ML 100 ML IVPB ONE (10:00)
--- NOTE | 2017-10-12 12:33 | PN ---
Date/Time of Note Date/Time of Note DATE: 10/12/17 TIME: 12:25 Assessment/Plan VTE Prophylaxis VTE Prophylaxis Intervention: ambulation Lines/Catheters IV Catheter Type (from Nrsg): Saline Lock Assessment/Plan Chief Complaint/Hosp Course 1. Vaginal pain possible secondary herpes versus neuropathic pain Continue gabapentin Pain control with Dilaudid ID consultation appreciated, continue acyclovir, doxycycline and topical antifungals Follow-up on herpes studies 2. Diabetes-uncontrolled A1c 11.1 Patient may have type 1 diabetes, sent for insulin and JEREMIE antibodies Start scheduled insulin and sliding scale, continue metformin Prophylaxis: Ambulation Problems: Subjective 24 Hr Interval Summary Genitourinary: other (Vaginal pain) Exam/Review of Systems Vital Signs Vitals Vital Signs Date Time Temp Pulse Resp B/P Pulse Ox O2 Delivery O2 Flow Rate FiO2 10/12/17 09:50 97.4 62 18 107/71 95 10/11/17 16:27 Room Air Intake and Output 10/11/17 10/11/17 10/12/17 15:00 23:00 07:00 Intake Total 1170 ml Output Total 1000 ml 1370 ml Balance -1000 ml -200 ml Exam Constitutional: alert, oriented Respiratory: clear to auscultation Cardiovascular: regular rate and rhythm Gastrointestinal: soft, No distended Musculoskeletal: nl extremities to inspection Results Result Diagram: 10/12/1728 10/12/17 0528 Results 24 hrs Laboratory Tests Test 10/12/17 05:28 White Blood Count 9.5 # Red Blood Count 4.30 Hemoglobin 12.1 Hematocrit 36.6 L Mean Corpuscular Volume 85.1 Mean Corpuscular Hemoglobin 28.1 L Mean Corpuscular Hemoglobin Concent 33.1 Red Cell Distribution Width 12.0 Platelet Count 245 Mean Platelet Volume 11.9 H Neutrophils % 43.4 Lymphocytes % 47.5 Monocytes % 6.3 Eosinophils % 1.5 Basophils % 0.7 Nucleated Red Blood Cells % 0.0 Neutrophils # 4.1 Lymphocytes # 4.5 H Monocytes # 0.6 Eosinophils # 0.1 Basophils # 0.1 Nucleated Red Blood Cells # 0.0 Sodium Level 136 Potassium Level 4.1 Chloride Level 96 L Carbon Dioxide Level 30 Anion Gap 14 Blood Urea Nitrogen 12 Creatinine 0.62 Glucose Level 392 H Hemoglobin A1c 11.1 H Calcium Level 9.0 Phosphorus Level 4.8 Magnesium Level 1.4 L Medications Medications Current Medications Ondansetron HCl (Zofran Inj) 4 mg Q6H PRN IV NAUSEA AND/OR VOMITING; Start at 15:30 Acetaminophen (Tylenol Tab) 650 mg Q6H PRN PO PAIN LEVEL 1-3 OR FEVER; Start 10/11/17 at 15:30 Acetaminophen/ Hydrocodone Bitart ([place] (5/325)) 1 tab Q6H PRN PO MODERATE PAIN LEVEL 4-6; Start 10/11/17 at 15:30 Docusate Sodium (Colace) 100 mg Q12H PRN PO CONSTIPATION; Start 10/11/17 at 15 :30 Magnesium Hydroxide 30 ml 30 ml DAILY PRN PO CONSTIPATION; Start 10/11/17 at 15:30 Acyclovir/Sodium Chloride (Zovirax/NS) 100 ml @ 100 mls/hr Q8 IVPB Last administered on 10/12/17 05:51; Admin Dose 100 MLS/HR; Start 10/11/17 at 22: 00 Gabapentin (Neurontin) 300 mg DAILY PO Last administered on 10/12/17 08:41; Admin Dose 300 MG; Start 10/11/17 at 15:30 Miscellaneous Information 1 ea NOTE XX ; Start 10/11/17 at 16:00 Glucose (Glutose) 15 gm Q15M PRN PO DECREASED GLUCOSE; Start 10/11/17 at 16:00 Glucose (Glutose) 22.5 gm Q15M PRN PO DECREASED GLUCOSE; Start 10/11/17 at 16: 00 Dextrose (D50w Syringe) 25 ml Q15M PRN IV DECREASED GLUCOSE; Start 10/11/17 at 16:00 Dextrose (D50w Syringe) 50 ml Q15M PRN IV DECREASED GLUCOSE; Start 10/11/17 at 16:00 Glucagon (Glucagen) 1 mg Q15M PRN IM DECREASED GLUCOSE; Start 10/11/17 at 16: 00 Glucose (Glutose) 15 gm Q15M PRN BUCCAL DECREASED GLUCOSE; Start 10/11/17 at 16:00 Betamethasone/ Clotrimazole (Lotrisone Cr) 1 applic BID TOP Last administered on 10/12/17 10:58; Admin Dose 1 APPLIC; Start 10/11/17 at 21:00 Miconazole 1 supp 1 supp HS VAG Last administered on 10/11/17 21:09; Admin Dose 1 SUPP; Start 10/11/17 at 21:00 Doxycycline Hyclate/Sodium Chloride (Vibramycin/NS) 250 ml @ 250 mls/hr Q12 IVPB Last administered on 10/12/17 08:41; Admin Dose 250 MLS/HR; Start 10/11 at 21:00 Hydromorphone HCl 1 mg 1 mg Q2H PRN IV PAIN Last administered on 10/12/17 08: 57; Admin Dose 1 MG; Start 10/11/17 at 18:30 Magnesium Sulfate (Magnesium Sulfate 4 Gm/100 ml) 100 ml @ 25 mls/hr ONCE ONCE IVPB Last administered on 10/12/17 10:51; Admin Dose 25 MLS/HR; Start 10/12/17 at 10:00; Stop 10/12/17 at 13:59 AEL CASON Oct 12, 2017 12:33
[2017-10-12] MEDS ORDERED: GLUCOSE GEL 15 GRAM TUBE PO PRN ×2 (13:00)
[2017-10-12] MEDS ORDERED: GLUCAGON 1 MG INJ IM PRN (13:00)
[2017-10-12] MEDS ORDERED: DEXTROSE 50% 50 ML SYRINGE IV PRN ×2 (13:00)
[2017-10-12] MEDS ORDERED: GLUCOSE GEL 15 GRAM TUBE BUCCAL PRN (13:00)
--- NOTE | 2017-10-12 13:12 | CONS ---
Date/Time of Note Date/Time of Note DATE: 10/12/17 TIME: 13:01 Assessment/Plan Assessment/Plan Problems: (1) Hyperglycemia due to type 2 diabetes mellitus Status: Acute Comment: Primary team starting weight-based levemir and low-dose mealtime insulin w/ ISS. Will monitor to see if this is effective. Will help titrate up if ineffective. Primary team has ordered panel of labs to evaluate for T1DM. Agree w/ this but still think this is T2DM given family history. Will add c-peptide value to evaluation. (2) H/O thyroid disease Status: Chronic Comment: Recheck TFT's and TPOAb. Consultation Date/Type/Reason Admit Date/Time Oct 11, 2017 at 13:25 Date of Consultation: Oct 12, 2017 Type of Consultation: Endocrinology Reason for Consultation Diabetes out of control (OOC), type unknown Referring Provider: ALE CASON Hx of Present Illness 22 y/o H F w/ h/o DM diagnosed during 4 y. ago and depression. Was on insulin for what she was told was GDM during . However, when was over was placed on metformin and has remained on that for the last 4 y. w/o medical f/u. Pt. checks FS at home irregular and values are > 200 mg/dL. Pt. reports was in [facility] until 8 d. ago when she developed vulvar burning pain. Worsened 2 days later and became intolerable. Went to multiple different ER's and rec'd mult. different therapies. [place] to be herpetic and started on valacyclovir but not improving and pain OOC so was admitted. On admit A1c 11.1%. Pt. started on routine insulin and endo consulted to manage and r/o T1DM Constitutional: improved, no complaints Eyes: no complaints ENT: no complaints Respiratory: no complaints Cardiovascular: no complaints Gastrointestinal: decreased appetite Genitourinary: other (vulvar rash/lesions) Musculoskeletal: no complaints Neurologic: no complaints Past Medical History Medical History: diabetes, gallstones (reports antibiotic treatment for a gall bladder problem but surgery not done), hypothyroid (? pt. reports was given medicine for low thyroid when she was in her teens but resolved spontaneously and meds were stopped.), other (depression/anxiety) Past Surgical History Past Surgical Hx: other () Family History Significant Family History: cancer (stomach--mother), diabetes (mother, sister) , hypertension (father) Social History b. [place], some college, engaged to [employer], 1 child, unemployed retail office manager Alcohol Use: none Smoking Status: Never smoker Drug Use: none Exam/Review of Systems Vital Signs Vitals VS - Last 72 Hours, by Label Date Time Temp Pulse Resp B/P Pulse Ox O2 Delivery O2 Flow Rate FiO2 10/12/17 09:50 97.4 62 18 107/71 95 10/12/17 02:00 98.5 73 20 121/75 98 10/11/17 20:00 98.2 79 20 126/80 99 10/11/17 16:27 97.9 87 17 135/94 98 Room Air 10/11/17 14:31 98.9 84 20 126/79 99 Room Air 10/11/17 13:30 85 24 99 Room Air 10/11/17 10:57 98.0 97 18 133/87 97 Vital Signs Date Time Temp Pulse Resp B/P Pulse Ox O2 Delivery O2 Flow Rate FiO2 10/12/17 09:50 97.4 62 18 107/71 95 10/11/17 16:27 Room Air Intake and Output 10/11/17 10/11/17 10/12/17 15:00 23:00 07:00 Intake Total 1170 ml Output Total 1000 ml 1370 ml Balance -1000 ml -200 ml Exam Constitutional: alert, obese, oriented Psych: nl mood/affect, no complaints Eyes: EOMI, PERRL, nl conjunctiva, nl lids, nl sclera ENMT: mucosa pink and moist, nl external ears & nose Neck: non-tender, supple, No bruits, No masses, No thyromegaly Respiratory: clear to auscultation, normal air movement Cardiovascular: nl pulses, regular rate and rhythm, No edema, No murmurs/extra sounds, No rub Gastrointestinal: bowel sounds, nl liver, spleen, soft, tender (TTP BLQ), No mass, No non-tender, No rebound or guarding Musculoskeletal: nl extremities to inspection Extremities: normal pulses, No clubbing, No cyanosis, No edema Neurological: [employer] OPERATOR II-XII intact, nl mental status, nl speech, nl strength Results Result Diagram: 10/12/1728 10/12/17527 Results 24 hrs Laboratory Tests Test 10/12/17 05:28 White Blood Count 9.5 # Red Blood Count 4.30 Hemoglobin 12.1 Hematocrit 36.6 L Mean Corpuscular Volume 85.1 Mean Corpuscular Hemoglobin 28.1 L Mean Corpuscular Hemoglobin Concent 33.1 Red Cell Distribution Width 12.0 Platelet Count 245 Mean Platelet Volume 11.9 H Neutrophils % 43.4 Lymphocytes % 47.5 Monocytes % 6.3 Eosinophils % 1.5 Basophils % 0.7 Nucleated Red Blood Cells % 0.0 Neutrophils # 4.1 Lymphocytes # 4.5 H Monocytes # 0.6 Eosinophils # 0.1 Basophils # 0.1 Nucleated Red Blood Cells # 0.0 Sodium Level 136 Potassium Level 4.1 Chloride Level 96 L Carbon Dioxide Level 30 Anion Gap 14 Blood Urea Nitrogen 12 Creatinine 0.62 Glucose Level 392 H Hemoglobin A1c 11.1 H Calcium Level 9.0 Phosphorus Level 4.8 Magnesium Level 1.4 L Medications Medications Current Medications Ondansetron HCl (Zofran Inj) 4 mg Q6H PRN IV NAUSEA AND/OR VOMITING; Start at 15:30 Acetaminophen (Tylenol Tab) 650 mg Q6H PRN PO PAIN LEVEL 1-3 OR FEVER; Start 10/11/17 at 15:30 Acetaminophen/ Hydrocodone Bitart ([place] (5/325)) 1 tab Q6H PRN PO MODERATE PAIN LEVEL 4-6; Start 10/11/17 at 15:30 Docusate Sodium (Colace) 100 mg Q12H PRN PO CONSTIPATION; Start 10/11/17 at 15 :30 Magnesium Hydroxide 30 ml 30 ml DAILY PRN PO CONSTIPATION; Start 10/11/17 at 15:30 Acyclovir/Sodium Chloride (Zovirax/NS) 100 ml @ 100 mls/hr Q8 IVPB Last administered on 10/12/17 05:51; Admin Dose 100 MLS/HR; Start 10/11/17 at 22: 00 Gabapentin (Neurontin) 300 mg DAILY PO Last administered on 10/12/17 08:41; Admin Dose 300 MG; Start 10/11/17 at 15:30 Miscellaneous Information 1 ea NOTE XX ; Start 10/11/17 at 16:00 Betamethasone/ Clotrimazole (Lotrisone Cr) 1 applic BID TOP Last administered on 10/12/17 10:58; Admin Dose 1 APPLIC; Start 10/11/17 at 21:00 Miconazole 1 supp 1 supp HS VAG Last administered on 10/11/17 21:09; Admin Dose 1 SUPP; Start 10/11/17 at 21:00 Doxycycline Hyclate/Sodium Chloride (Vibramycin/NS) 250 ml @ 250 mls/hr Q12 IVPB Last administered on 10/12/17 08:41; Admin Dose 250 MLS/HR; Start 10/11 at 21:00 Hydromorphone HCl 1 mg 1 mg Q2H PRN IV PAIN Last administered on 10/12/17 08: 57; Admin Dose 1 MG; Start 10/11/17 at 18:30 Magnesium Sulfate (Magnesium Sulfate 4 Gm/100 ml) 100 ml @ 25 mls/hr ONCE ONCE IVPB Last administered on 10/12/17 10:51; Admin Dose 25 MLS/HR; Start 10/12/17 at 10:00; Stop 10/12/17 at 13:59 Diagnostic Test (Pha) (Accu-Chek) 1 ea 02 XX ; Start 10/13/17 at 02:00 Insulin Detemir (Levemir) 16 unit DAILY@20 SC ; Start 10/12/17 at 20:00 Miscellaneous Information 1 ea NOTE XX ; Start 10/12/17 at 13:00 Glucose (Glutose) 15 gm Q15M PRN PO DECREASED GLUCOSE; Start 10/12/17 at 13:00 Glucose (Glutose) 22.5 gm Q15M PRN PO DECREASED GLUCOSE; Start 10/12/17 at 13: 00 Dextrose (D50w Syringe) 25 ml Q15M PRN IV DECREASED GLUCOSE; Start 10/12/17 at 13:00 Dextrose (D50w Syringe) 50 ml Q15M PRN IV DECREASED GLUCOSE; Start 10/12/17 at 13:00 Glucagon (Glucagen) 1 mg Q15M PRN IM DECREASED GLUCOSE; Start 10/12/17 at 13: 00 Glucose (Glutose) 15 gm Q15M PRN BUCCAL DECREASED GLUCOSE; Start 10/12/17 at 13:00 BRETT BRADLEY MD Oct 12, 2017 13:12
[2017-10-12 16:29] VITALS: BP 123/80; RESP 18
[2017-10-12] MEDS: INSULIN ASPART [NOVOLOG] 3 ML PEN SC SCH ×3 (17:57→21:39)
--- NOTE | 2017-10-12 19:32 | CONS ---
Date/Time of Note Date/Time of Note DATE: 10/12/17 TIME: 19:25 Assessment/Plan Assessment/Plan Chief Complaint/Hosp Course ID PROGRESS NOTE TOTAL ABX DAY # 2 CURRENT ABX=> Acyclovir IV + Lotrisone topical (antifungal) + Doxycyline 100mg IV Q12H + Monospot Vag suppository x 3 days 24H INTERVAL SUMMARY * She still reports pain -- had BM today = "1st time in 3 days" -- has a few clots in FC tubing, suspect local meatal trauma vs meatal lesion during FC insert, * Severe painful labial lesions, she is waiting for return of HSV culture -- * 10/11/17 labial swab: WOUND CULTURE Preliminary Culture too young to evaluate GRAM STAIN Final POLYMORPH. LEUKOCYTE 2+ GRAM POSITIVE RODS RARE GENERAL: VSS, NAD, Overweight HEENT: Unremarkable except wears corrected glasses NECK: Trach midline, full ROM CHEST: Rise symmetrical without dyspnea on observation ABDOMEN: Soft, : Labia w/pain upon touching -> she can barely spead her outer labia without severe pain - swab of labial fold obtained for bacterial/fungal cx EXTREMITIES: Warm,(+) moves extremities, no edema SKIN: No diaphoresis, no rash ID ASSESSMENT: 22 yo F admit with: 1. Acute recurrent vulvar skin lesions: Contact dermatitis vs HSV vs bacterial vs fungal vs ? other * 10/10/17 ED: (-)GC/Chlamydia; (-)C.Trachomatis RNA * HSV culture -> Pending * 10/11/17 10/11/17 labial swab: WOUND CULTURE Preliminary Culture too young to evaluate GRAM STAIN Final POLYMORPH. LEUKOCYTE 2+ GRAM POSITIVE RODS RARE 2. Severe pain due #1 => QUERY Neuropathic pain 3. Diabetes * Patient may have type 1 diabetes, sent for insulin and JEREMIE antibodies 4. Hx of Migraines 5. Hx of PTSD + depression 6. Hx of 04/16/13 INVASIVES: PIV, FC ABX ALLERGY: PCN TOTAL ABX DAY # 2 CURRENT ABX=> Acyclovir IV + Lotrisone topical (antifungal) + Doxycyline 100mg IV Q12H + Monospot Vag suppository x 3 days ID PLAN 1. Await HSV culture, Bacteria;/fungal swab cx results 2. Continue Acyclovir IV + add Doxycycline to cover concern bacterial cellulitis + topical Lotrisone and empiric Monospot Vag suppositories x 3 days 3. Await improvement and micro results. 4. CONSERVATIVE MEASURES * Baking Soda soaks. Soak in lukewarm (not hot) bath water with 4-5 tablespoons of baking soda to help soothe vulvar itching and burning. Soak 1 to 3 times a day for 10 minutes. If you are using a sitz bath, use 1 to 2 teaspoons of baking soda. * You can use Tucks hemorrhoid pads. If urine causes burning of the skin, pour lukewarm water over the vulva while urinating. Pat dry rather than wiping. Problems: Consultation Date/Type/Reason Admit Date/Time Oct 11, 2017 at 13:25 Type of Consultation: ID Referring Provider: ALE CASON Exam/Review of Systems Vital Signs Vitals Vital Signs Date Time Temp Pulse Resp B/P Pulse Ox O2 Delivery O2 Flow Rate FiO2 10/12/17 16:29 98.0 82 18 123/80 96 10/11/17 16:27 Room Air Intake and Output 10/11/17 10/11/17 10/12/17 15:00 23:00 07:00 Intake Total 1170 ml Output Total 1000 ml 1370 ml Balance -1000 ml -200 ml Results Result Diagram: 10/12/17 0528 10/12/17 0528 Results 24 hrs Laboratory Tests Test 10/12/17 05:28 10/12/17 17:06 10/12/17 17:56 White Blood Count 9.5 # Red Blood Count 4.30 Hemoglobin 12.1 Hematocrit 36.6 L Mean Corpuscular Volume 85.1 Mean Corpuscular Hemoglobin 28.1 L Mean Corpuscular Hemoglobin Concent 33.1 Red Cell Distribution Width 12.0 Platelet Count 245 Mean Platelet Volume 11.9 H Neutrophils % 43.4 Lymphocytes % 47.5 Monocytes % 6.3 Eosinophils % 1.5 Basophils % 0.7 Nucleated Red Blood Cells % 0.0 Neutrophils # 4.1 Lymphocytes # 4.5 H Monocytes # 0.6 Eosinophils # 0.1 Basophils # 0.1 Nucleated Red Blood Cells # 0.0 Sodium Level 136 Potassium Level 4.1 Chloride Level 96 L Carbon Dioxide Level 30 Anion Gap 14 Blood Urea Nitrogen 12 Creatinine 0.62 Glucose Level 392 H Hemoglobin A1c 11.1 H Calcium Level 9.0 Phosphorus Level 4.8 Magnesium Level 1.4 L Bedside Glucose 238 H 259 H Medications Medications Current Medications Ondansetron HCl (Zofran Inj) 4 mg Q6H PRN IV NAUSEA AND/OR VOMITING; Start at 15:30 Acetaminophen (Tylenol Tab) 650 mg Q6H PRN PO PAIN LEVEL 1-3 OR FEVER; Start 10/11/17 at 15:30 Acetaminophen/ Hydrocodone Bitart ([place] (5/325)) 1 tab Q6H PRN PO MODERATE PAIN LEVEL 4-6; Start 10/11/17 at 15:30 Docusate Sodium (Colace) 100 mg Q12H PRN PO CONSTIPATION; Start 10/11/17 at 15 :30 Magnesium Hydroxide 30 ml 30 ml DAILY PRN PO CONSTIPATION; Start 10/11/17 at 15:30 Acyclovir/Sodium Chloride (Zovirax/NS) 100 ml @ 100 mls/hr Q8 IVPB Last administered on 10/12/17 14:56; Admin Dose 100 MLS/HR; Start 10/11/17 at 22: 00 Gabapentin (Neurontin) 300 mg DAILY PO Last administered on 10/12/17 08:41; Admin Dose 300 MG; Start 10/11/17 at 15:30 Miscellaneous Information 1 ea NOTE XX ; Start 10/11/17 at 16:00 Betamethasone/ Clotrimazole (Lotrisone Cr) 1 applic BID TOP Last administered on 10/12/17 10:58; Admin Dose 1 APPLIC; Start 10/11/17 at 21:00 Miconazole 1 supp 1 supp HS VAG Last administered on 10/11/17 21:09; Admin Dose 1 SUPP; Start 10/11/17 at 21:00 Doxycycline Hyclate/Sodium Chloride (Vibramycin/NS) 250 ml @ 250 mls/hr Q12 IVPB Last administered on 10/12/17 08:41; Admin Dose 250 MLS/HR; Start 10/11 at 21:00 Hydromorphone HCl (Dilaudid) 1 mg Q2H PRN IV PAIN Last administered on 17:03; Admin Dose 1 MG; Start 10/11/17 at 18:30 Diagnostic Test (Pha) (Accu-Chek) 1 ea 02 XX ; Start 10/13/17 at 02:00 Insulin Detemir (Levemir) 16 unit DAILY@20 SC ; Start 10/12/17 at 20:00 Miscellaneous Information 1 ea NOTE XX ; Start 10/12/17 at 13:00 Glucose (Glutose) 15 gm Q15M PRN PO DECREASED GLUCOSE; Start 10/12/17 at 13:00 Glucose (Glutose) 22.5 gm Q15M PRN PO DECREASED GLUCOSE; Start 10/12/17 at 13: 00 Dextrose (D50w Syringe) 25 ml Q15M PRN IV DECREASED GLUCOSE; Start 10/12/17 at 13:00 Dextrose (D50w Syringe) 50 ml Q15M PRN IV DECREASED GLUCOSE; Start 10/12/17 at 13:00 Glucagon (Glucagen) 1 mg Q15M PRN IM DECREASED GLUCOSE; Start 10/12/17 at 13: 00 Glucose (Glutose) 15 gm Q15M PRN BUCCAL DECREASED GLUCOSE; Start 10/12/17 at 13:00 KELSEY MADRID NP Oct 12, 2017 19:32
[2017-10-12] MEDS ORDERED: INSULIN DETEMIR [LEVEMIR] 3ML CART SC SCH (20:00)
[2017-10-12 20:40] VITALS: BP 121/82; RESP 19
[2017-10-12] MEDS: ONDANSETRON 4 MG INJ IV PRN (21:03)
[2017-10-12] MEDS: MICONAZOLE 200 MG VAG SUPP VAG SCH (21:42)
[2017-10-13] MEDS: HYDROmorphONE 1 MG/ML SYG IV PRN ×5 (01:53→21:02)
[2017-10-13] MEDS: ACCU-CHEK XX SCH (01:59)
[2017-10-13 02:00] VITALS: BP 111/52; RESP 17
[2017-10-13] MEDS: ACYCLOVIR 500 MG in SOD CHLORIDE 0.9% 100 ML IVPB SCH ×3 (05:22→21:59)
[2017-10-13 05:37] LABS: BASOPHIL # 0.1 10^3/ul (0.0-0.1); BASOPHILS % 0.5 % (0.0-2.0); EOSINOPHILS # 0.2 10^3/ul (0.0-0.5); EOSINOPHILS % 1.5 % (0.0-7.0); HEMATOCRIT 40.2 % (37.0-47.0); HEMOGLOBIN 13.5 g/dl (12.0-16.0); LYMPHOCYTES # 3.5 10^3/ul (0.8-2.9); LYMPHOCYTES % 31.2 % (15.0-51.0); MEAN CORPUSCULAR HEMOGLOBIN 28.1 pg (29.0-33.0); MEAN CORPUSCULAR HGB CONC 33.6 g/dl (32.0-37.0); MEAN CORPUSCULAR VOLUME 83.6 fl (82.0-101.0); MEAN PLATELET VOLUME 11.3 fl (7.4-10.4); MONOCYTE # 0.6 10^3/ul (0.3-0.9); NEUTROPHIL # 6.8 10^3/ul (1.6-7.5); NEUTROPHILS % 61.3 % (39.0-77.0); PLATELET COUNT 282 10^3/UL (140-415); RED BLOOD COUNT 4.81 10^6/ul (4.20-5.40); RED CELL DISTRIBUTION WIDTH 11.6 % (11.5-14.5); WHITE BLOOD COUNT 11.1 10^3/ul (4.8-10.8)
[2017-10-13 06:03] LABS: CALCIUM 9.9 mg/dl (8.4-10.2); CREATININE 0.49 mg/dl (0.44-1.00); MAGNESIUM 1.7 mg/dl (1.7-2.5)
[2017-10-13 07:56] LABS: T3 UPTAKE 34.5 % (23.5-40.5)
[2017-10-13 08:02] VITALS: BP 105/64; RESP 17
[2017-10-13] MEDS: GABAPENTIN 300 MG CAP PO SCH (08:06)
[2017-10-13] MEDS: DOXYCYCLINE 100 MG in SOD CHLORIDE 0.9% 250 ML IVPB SCH (08:06)
[2017-10-13] MEDS: metFORMIN 500 MG TAB PO SCH ×2 (08:06→17:39)
[2017-10-13] MEDS: INSULIN ASPART [NOVOLOG] 3 ML PEN SC SCH ×7 (08:08→21:59)
[2017-10-13 08:09] LABS: THYROID STIMULATING HORMONE 0.489 MIU/L (0.465-4.680)
[2017-10-13] MEDS: BETAMETHASONE/CLOTRIMAZOLE 15 GM CR TOP SCH ×2 (08:12→21:03)
--- NOTE | 2017-10-13 12:28 | CONS ---
Date/Time of Note Date/Time of Note DATE: 10/13/17 TIME: 12:24 Assessment/Plan Assessment/Plan Problems: (1) Hyperglycemia due to type 2 diabetes mellitus Status: Acute Comment: Pt. remains above glycemic goals on current insulin doses. Will increase Novolog from 5 to 8 qac and increase levemir from 16 to 18 units qhs. Increase metformin to 1,000 mg bid. Await c-peptide and T1DM antibody study to make more effective decision about diabetes type. (2) H/O thyroid disease Status: Chronic Comment: TFT's NL. Thyroid ab status P. Consultation Date/Type/Reason Admit Date/Time Oct 13, 2017 at 11:39 Initial Consult Date 10/12/17 Type of Consultation: Endocrinology Reason for Consultation DM OOC, T1 vs. T2 Referring Provider: ALE CASON 24 HR Interval Summary Constitutional: improved, no complaints Detailed Summary Respiratory: no complaints Cardiovascular: chest pain (when she gets her narcotic dose) Gastrointestinal: no complaints Genitourinary: other (vulvar pain improved but persists) Musculoskeletal: no complaints Neurologic: no complaints Psychological: anxiety (when she gets her narcotic dose) Exam/Review of Systems Vital Signs Vitals VS - Last 72 Hours, by Label Date Time Temp Pulse Resp B/P Pulse Ox O2 Delivery O2 Flow Rate FiO2 10/13/17 08:02 98.4 68 17 105/64 98 10/13/17 02:00 97.6 73 17 111/52 95 10/12/17 20:40 97.0 102 19 121/82 97 10/12/17 16:29 98.0 82 18 123/80 96 10/12/17 09:50 97.4 62 18 107/71 95 10/12/17 02:00 98.5 73 20 121/75 98 10/11/17 20:00 98.2 79 20 126/80 99 10/11/17 16:27 97.9 87 17 135/94 98 Room Air 10/11/17 14:31 98.9 84 20 126/79 99 Room Air 10/11/17 13:30 85 24 99 Room Air 10/11/17 10:57 98.0 97 18 133/87 97 Vital Signs Date Time Temp Pulse Resp B/P Pulse Ox O2 Delivery O2 Flow Rate FiO2 10/13/17 08:02 98.4 68 17 105/64 98 10/11/17 16:27 Room Air Intake and Output 10/12/17 10/12/17 10/13/17 15:00 23:00 07:00 Intake Total 350 ml 1430 ml 600 ml Output Total 1400 ml 1400 ml Balance 350 ml 30 ml -800 ml Exam Constitutional: alert, obese, oriented Psych: nl mood/affect, no complaints Respiratory: clear to auscultation, normal air movement Cardiovascular: nl pulses, regular rate and rhythm, No edema, No murmurs/extra sounds, No rub Gastrointestinal: bowel sounds, nl liver, spleen, soft, tender (TTP lower abd.) , No mass, No non-tender, No rebound or guarding Musculoskeletal: nl extremities to inspection Extremities: normal pulses, No clubbing, No cyanosis, No edema Neurological: [employer] II-XII intact, nl mental status, nl speech, nl strength Additional Comments Bedside Glucose - 72 Hours Test 10/12/17 17:06 10/12/17 17:56 10/12/17 21:36 10/13/17 01:58 Bedside Glucose 238mg/dL (70-220) H 259mg/dL (70-220) H 208mg/dL (70-220) 221mg/dL (70-220) H Test 10/13/17 08:02 10/13/17 11:59 Bedside Glucose 212mg/dL (70-220) 220mg/dL (70-220) Results Result Diagram: 10/13/1718 10/13/17 0518 Results 24 hrs Laboratory Tests Test 10/12/17 17:06 10/12/17 17:56 10/12/17 21:36 10/13/17 01:58 Bedside Glucose 238 H 259 H 208 221 H Test 10/13/17 05:18 10/13/17 08:02 10/13/17 11:59 White Blood Count 11.1 H Red Blood Count 4.81 Hemoglobin 13.5 Hematocrit 40.2 Mean Corpuscular Volume 83.6 Mean Corpuscular Hemoglobin 28.1 L Mean Corpuscular Hemoglobin Concent 33.6 Red Cell Distribution Width 11.6 Platelet Count 282 Mean Platelet Volume 11.3 H Neutrophils % 61.3 Lymphocytes % 31.2 Monocytes % 5.0 Eosinophils % 1.5 Basophils % 0.5 Nucleated Red Blood Cells % 0.0 Neutrophils # 6.8 Lymphocytes # 3.5 H Monocytes # 0.6 Eosinophils # 0.2 Basophils # 0.1 Nucleated Red Blood Cells # 0.0 Sodium Level 138 Potassium Level 4.0 Chloride Level 98 Carbon Dioxide Level 33 H Anion Gap 11 Blood Urea Nitrogen 11 Creatinine 0.49 Glucose Level 204 # Calcium Level 9.9 Magnesium Level 1.7 Thyroid Stimulating Hormone (TSH) 0.489 Free Thyroxine Index 3.83 Thyroxine (T4) 11.1 H Triiodothyronine (T3) Uptake 34.5 Bedside Glucose 212 220 Medications Medications Current Medications Ondansetron HCl (Zofran Inj) 4 mg Q6H PRN IV NAUSEA AND/OR VOMITING Last administered on 10/12/17 21:03; Admin Dose 4 MG; Start 10/11/17 at 15:30 Acetaminophen (Tylenol Tab) 650 mg Q6H PRN PO PAIN LEVEL 1-3 OR FEVER; Start 10/11/17 at 15:30 Acetaminophen/ Hydrocodone Bitart ([place] (5/325)) 1 tab Q6H PRN PO MODERATE PAIN LEVEL 4-6; Start 10/11/17 at 15:30 Docusate Sodium (Colace) 100 mg Q12H PRN PO CONSTIPATION; Start 10/11/17 at 15 :30 Magnesium Hydroxide 30 ml 30 ml DAILY PRN PO CONSTIPATION; Start 10/11/17 at 15:30 Acyclovir/Sodium Chloride (Zovirax/NS) 100 ml @ 100 mls/hr Q8 IVPB Last administered on 10/13/17 05:22; Admin Dose 100 MLS/HR; Start 10/11/17 at 22: 00 Gabapentin (Neurontin) 300 mg DAILY PO Last administered on 10/13/17 08:06; Admin Dose 300 MG; Start 10/11/17 at 15:30 Miscellaneous Information 1 ea NOTE XX ; Start 10/11/17 at 16:00 Betamethasone/ Clotrimazole (Lotrisone Cr) 1 applic BID TOP Last administered on 10/13/17 08:12; Admin Dose 1 APPLIC; Start 10/11/17 at 21:00 Miconazole 1 supp 1 supp HS VAG Last administered on 10/12/17 21:42; Admin Dose 1 SUPP; Start 10/11/17 at 21:00 Doxycycline Hyclate/Sodium Chloride (Vibramycin/NS) 250 ml @ 250 mls/hr Q12 IVPB Last administered on 10/13/17 08:06; Admin Dose 250 MLS/HR; Start 10/11 at 21:00 Hydromorphone HCl (Dilaudid) 1 mg Q2H PRN IV PAIN Last administered on 12:06; Admin Dose 1 MG; Start 10/11/17 at 18:30 Diagnostic Test (Pha) (Accu-Chek) 1 ea 02 XX ; Start 10/13/17 at 02:00 Miscellaneous Information 1 ea NOTE XX ; Start 10/12/17 at 13:00 Glucose (Glutose) 15 gm Q15M PRN PO DECREASED GLUCOSE; Start 10/12/17 at 13:00 Glucose (Glutose) 22.5 gm Q15M PRN PO DECREASED GLUCOSE; Start 10/12/17 at 13: 00 Dextrose (D50w Syringe) 25 ml Q15M PRN IV DECREASED GLUCOSE; Start 10/12/17 at 13:00 Dextrose (D50w Syringe) 50 ml Q15M PRN IV DECREASED GLUCOSE; Start 10/12/17 at 13:00 Glucagon (Glucagen) 1 mg Q15M PRN IM DECREASED GLUCOSE; Start 10/12/17 at 13: 00 Glucose (Glutose) 15 gm Q15M PRN BUCCAL DECREASED GLUCOSE; Start 10/12/17 at 13:00 Insulin Detemir (Levemir) 18 unit DAILY@20 SC ; Start 10/13/17 at 20:00 BRETT BRADLEY MD Oct 13, 2017 12:28
[2017-10-13 14:44] VITALS: BP 110/70; RESP 17
--- NOTE | 2017-10-13 15:14 | PN ---
Date/Time of Note Date/Time of Note DATE: 10/13/17 TIME: 15:09 Assessment/Plan VTE Prophylaxis VTE Prophylaxis Intervention: ambulation Lines/Catheters IV Catheter Type (from Nrsg): Saline Lock Assessment/Plan Chief Complaint/Hosp Course 1. Vaginal pain likely secondary to chemical burn, rule out herpes- pain and redness are improving DC gabapentin Pain control with Dilaudid ID consultation appreciated, continue acyclovir, doxycycline and topical antifungals Follow-up on herpes studies 2. Diabetes-uncontrolled A1c 11.1 Patient may have type 1 diabetes, sent for insulin, anti-Islet and JEREMIE antibodies, C-peptide has also been sent Endo consultation appreciated Have started scheduled insulin and sliding scale, insulin and metformin doses have been increased today by Endo 3. Depression Resume home Prozac Prophylaxis: Ambulation DC planning: Anticipate DC home in 1-2 days Problems: Subjective 24 Hr Interval Summary Genitourinary: other (Vaginal pain) Exam/Review of Systems Vital Signs Vitals Vital Signs Date Time Temp Pulse Resp B/P Pulse Ox O2 Delivery O2 Flow Rate FiO2 10/13/17 14:44 98.6 68 17 110/70 95 10/11/17 16:27 Room Air Intake and Output 10/12/17 10/12/17 10/13/17 15:00 23:00 07:00 Intake Total 350 ml 1430 ml 600 ml Output Total 1400 ml 1400 ml Balance 350 ml 30 ml -800 ml Exam Constitutional: alert, oriented Respiratory: clear to auscultation Cardiovascular: regular rate and rhythm Gastrointestinal: non-tender, soft, No distended Musculoskeletal: nl extremities to inspection Results Result Diagram: 10/13/17 0518 10/13/17 0518 Results 24 hrs Laboratory Tests Test 10/12/17 17:06 10/12/17 17:56 10/12/17 21:36 10/13/17 01:58 Bedside Glucose 238 H 259 H 208 221 H Test 10/13/17 05:18 10/13/17 08:02 10/13/17 11:59 White Blood Count 11.1 H Red Blood Count 4.81 Hemoglobin 13.5 Hematocrit 40.2 Mean Corpuscular Volume 83.6 Mean Corpuscular Hemoglobin 28.1 L Mean Corpuscular Hemoglobin Concent 33.6 Red Cell Distribution Width 11.6 Platelet Count 282 Mean Platelet Volume 11.3 H Neutrophils % 61.3 Lymphocytes % 31.2 Monocytes % 5.0 Eosinophils % 1.5 Basophils % 0.5 Nucleated Red Blood Cells % 0.0 Neutrophils # 6.8 Lymphocytes # 3.5 H Monocytes # 0.6 Eosinophils # 0.2 Basophils # 0.1 Nucleated Red Blood Cells # 0.0 Sodium Level 138 Potassium Level 4.0 Chloride Level 98 Carbon Dioxide Level 33 H Anion Gap 11 Blood Urea Nitrogen 11 Creatinine 0.49 Glucose Level 204 # Calcium Level 9.9 Magnesium Level 1.7 Thyroid Stimulating Hormone (TSH) 0.489 Free Thyroxine Index 3.83 Thyroxine (T4) 11.1 H Triiodothyronine (T3) Uptake 34.5 Bedside Glucose 212 220 Medications Medications Current Medications Ondansetron HCl (Zofran Inj) 4 mg Q6H PRN IV NAUSEA AND/OR VOMITING Last administered on 10/12/17 21:03; Admin Dose 4 MG; Start 10/11/17 at 15:30 Acetaminophen (Tylenol Tab) 650 mg Q6H PRN PO PAIN LEVEL 1-3 OR FEVER; Start 10/11/17 at 15:30 Acetaminophen/ Hydrocodone Bitart ([place] (5/325)) 1 tab Q6H PRN PO MODERATE PAIN LEVEL 4-6; Start 10/11/17 at 15:30 Docusate Sodium (Colace) 100 mg Q12H PRN PO CONSTIPATION; Start 10/11/17 at 15 :30 Magnesium Hydroxide 30 ml 30 ml DAILY PRN PO CONSTIPATION; Start 10/11/17 at 15:30 Acyclovir/Sodium Chloride (Zovirax/NS) 100 ml @ 100 mls/hr Q8 IVPB Last administered on 10/13/17 14:12; Admin Dose 100 MLS/HR; Start 10/11/17 at 22: 00 Gabapentin (Neurontin) 300 mg DAILY PO Last administered on 10/13/17 08:06; Admin Dose 300 MG; Start 10/11/17 at 15:30 Miscellaneous Information 1 ea NOTE XX ; Start 10/11/17 at 16:00 Betamethasone/ Clotrimazole (Lotrisone Cr) 1 applic BID TOP Last administered on 10/13/17 08:12; Admin Dose 1 APPLIC; Start 10/11/17 at 21:00 Miconazole 1 supp 1 supp HS VAG Last administered on 10/12/17 21:42; Admin Dose 1 SUPP; Start 10/11/17 at 21:00 Doxycycline Hyclate/Sodium Chloride (Vibramycin/NS) 250 ml @ 250 mls/hr Q12 IVPB Last administered on 10/13/17 08:06; Admin Dose 250 MLS/HR; Start 10/11 at 21:00 Hydromorphone HCl (Dilaudid) 1 mg Q2H PRN IV PAIN Last administered on 12:06; Admin Dose 1 MG; Start 10/11/17 at 18:30 Diagnostic Test (Pha) (Accu-Chek) 1 ea 02 XX ; Start 10/13/17 at 02:00 Miscellaneous Information 1 ea NOTE XX ; Start 10/12/17 at 13:00 Glucose (Glutose) 15 gm Q15M PRN PO DECREASED GLUCOSE; Start 10/12/17 at 13:00 Glucose (Glutose) 22.5 gm Q15M PRN PO DECREASED GLUCOSE; Start 10/12/17 at 13: 00 Dextrose (D50w Syringe) 25 ml Q15M PRN IV DECREASED GLUCOSE; Start 10/12/17 at 13:00 Dextrose (D50w Syringe) 50 ml Q15M PRN IV DECREASED GLUCOSE; Start 10/12/17 at 13:00 Glucagon (Glucagen) 1 mg Q15M PRN IM DECREASED GLUCOSE; Start 10/12/17 at 13: 00 Glucose (Glutose) 15 gm Q15M PRN BUCCAL DECREASED GLUCOSE; Start 10/12/17 at 13:00 Insulin Detemir (Levemir) 18 unit DAILY@20 SC ; Start 10/13/17 at 20:00 ALE CASON Oct 13, 2017 15:14
[2017-10-13] MEDS: FLUOXETINE 20 MG CAP PO SCH (16:08)
[2017-10-13] MEDS: ONDANSETRON 4 MG INJ IV PRN (16:11)
--- NOTE | 2017-10-13 18:39 | CONS ---
Date/Time of Note Date/Time of Note DATE: 10/13/17 TIME: 18:19 Assessment/Plan Assessment/Plan Chief Complaint/Hosp Course ID PROGRESS NOTE TOTAL ABX DAY # 3 CURRENT ABX=> Acyclovir IV + Lotrisone topical (antifungal) + Doxycycline 100mg IV Q12H + Monospot Vag suppository x 3 days 24H INTERVAL SUMMARY * NO fevers, VSS, labia still swollen, red, burning type of pain -- she has her legs open to air under the sheet * -- -has a few clots in FC tubing, suspect local meatal trauma vs meatal lesion during FC insert, * Severe painful labial lesions, she is waiting for return of HSV culture -- Cx sent on 10/11 * 10/11/17 labial swab: WOUND CULTURE Preliminary Organism 1 STREP AGALACTIAE - (GROUP B) QUANTITY SCANT GROWTH Organism 2 KAVITA ALBICANS QUANTITY SCANT GROWTH Organism 3 ENTEROCOCCUS SPECIES QUANTITY SCANT GROWTH Organism 4 YEAST QUANTITY 1+ GENERAL: VSS, NAD, Overweight HEENT: Unremarkable except wears corrected glasses NECK: Trach midline, full ROM CHEST: Rise symmetrical without dyspnea on observation ABDOMEN: Soft, : Labia w/pain upon touching -> she can barely spead her outer labia without severe pain - swab of labial fold obtained for bacterial/fungal cx EXTREMITIES: Warm,(+) moves extremities, no edema SKIN: No diaphoresis, no rash ID ASSESSMENT: 22 yo F admit with: 1. Acute recurrent vulvar skin lesions: Suspect contact dermatitis chemical irritation from bath salts with open skin burn type lesions vs HSV lesions * 10/11/17 HSV culture -> Pending * 10/12/17 HSV 1/2 serology IgG/IgM * 10/10/17 ED: (-)GC/Chlamydia; (-)C.Trachomatis RNA 2. Vulvar/labial cellulitis superimposed on skin lesions/contact chemical burn type dermatitis lesions now w/ Polymicrobial infection * 10/11/1711/24/17 labial swab: WOUND CULTURE Preliminary Organism 1 STREP AGALACTIAE - (GROUP B) QUANTITY SCANT GROWTH Organism 2 KAVITA ALBICANS QUANTITY SCANT GROWTH Organism 3 ENTEROCOCCUS SPECIES QUANTITY SCANT GROWTH Organism 4 YEAST QUANTITY 1+ 2. Severe pain due #1 => QUERY Neuropathic pain 3. Diabetes * Patient may have type 1 diabetes, sent for insulin and JEREMIE antibodies * Onset diabetes age 13 years 4. Hx of Migraines 5. Hx of PTSD + depression 6. Hx of 04/16/13 INVASIVES: PIV, FC ABX ALLERGY: PCN TOTAL ABX DAY # 3 CURRENT ABX=> Acyclovir IV +Start Cancidas IV + Start Vanco IV * Lotrisone topical (antifungal) + * Monospot Vag suppository x 3 days Doxycyline 100mg IV Q12H => DC ID PLAN 1. Await HSV culture & serology results 2. She has allergy to PCN -- change Doxycycline to Vanco IV to cover both Strep and Enterococcus + Vfend to cover yeast pathogens 3. Await improvement and micro results. 4. CONSERVATIVE MEASURES * Baking Soda soaks. Soak in lukewarm (not hot) bath water with 4-5 tablespoons of baking soda to help soothe vulvar itching and burning. Soak 1 to 3 times a day for 10 minutes. If you are using a sitz bath, use 1 to 2 teaspoons of baking soda. * You can use Tucks hemorrhoid pads. If urine causes burning of the skin, pour lukewarm water over the vulva while urinating. Pat dry rather than wiping. Problems: Consultation Date/Type/Reason Admit Date/Time Oct 13, 2017 at 11:39 Type of Consultation: ID Referring Provider: ALE CASON Exam/Review of Systems Vital Signs Vitals Vital Signs Date Time Temp Pulse Resp B/P Pulse Ox O2 Delivery O2 Flow Rate FiO2 10/13/17 14:44 98.6 68 17 110/70 95 10/11/17 16:27 Room Air Intake and Output 10/12/17 10/12/17 10/13/17 15:00 23:00 07:00 Intake Total 350 ml 1430 ml 600 ml Output Total 1400 ml 1400 ml Balance 350 ml 30 ml -800 ml Results Result Diagram: 10/13/17 0518 10/13/17 0518 Results 24 hrs Laboratory Tests Test 10/12/17 21:36 10/13/17 01:58 10/13/17 05:18 10/13/17 08:02 Bedside Glucose 208 221 H 212 White Blood Count 11.1 H Red Blood Count 4.81 Hemoglobin 13.5 Hematocrit 40.2 Mean Corpuscular Volume 83.6 Mean Corpuscular Hemoglobin 28.1 L Mean Corpuscular Hemoglobin Concent 33.6 Red Cell Distribution Width 11.6 Platelet Count 282 Mean Platelet Volume 11.3 H Neutrophils % 61.3 Lymphocytes % 31.2 Monocytes % 5.0 Eosinophils % 1.5 Basophils % 0.5 Nucleated Red Blood Cells % 0.0 Neutrophils # 6.8 Lymphocytes # 3.5 H Monocytes # 0.6 Eosinophils # 0.2 Basophils # 0.1 Nucleated Red Blood Cells # 0.0 Sodium Level 138 Potassium Level 4.0 Chloride Level 98 Carbon Dioxide Level 33 H Anion Gap 11 Blood Urea Nitrogen 11 Creatinine 0.49 Glucose Level 204 # Calcium Level 9.9 Magnesium Level 1.7 Thyroid Stimulating Hormone (TSH) 0.489 Free Thyroxine Index 3.83 Thyroxine (T4) 11.1 H Triiodothyronine (T3) Uptake 34.5 Test 10/13/17 11:59 10/13/17 17:33 Bedside Glucose 220 187 Medications Medications Current Medications Ondansetron HCl (Zofran Inj) 4 mg Q6H PRN IV NAUSEA AND/OR VOMITING Last administered on 10/13/17 16:11; Admin Dose 4 MG; Start 10/11/17 at 15:30 Acetaminophen (Tylenol Tab) 650 mg Q6H PRN PO PAIN LEVEL 1-3 OR FEVER; Start 10/11/17 at 15:30 Acetaminophen/ Hydrocodone Bitart ([place] (5/325)) 1 tab Q6H PRN PO MODERATE PAIN LEVEL 4-6; Start 10/11/17 at 15:30 Docusate Sodium (Colace) 100 mg Q12H PRN PO CONSTIPATION; Start 10/11/17 at 15 :30 Magnesium Hydroxide 30 ml 30 ml DAILY PRN PO CONSTIPATION; Start 10/11/17 at 15:30 Acyclovir/Sodium Chloride (Zovirax/NS) 100 ml @ 100 mls/hr Q8 IVPB Last administered on 10/13/17 14:12; Admin Dose 100 MLS/HR; Start 10/11/17 at 22: 00 Miscellaneous Information 1 ea NOTE XX ; Start 10/11/17 at 16:00 Betamethasone/ Clotrimazole (Lotrisone Cr) 1 applic BID TOP Last administered on 10/13/17 08:12; Admin Dose 1 APPLIC; Start 10/11/17 at 21:00 Miconazole 1 supp 1 supp HS VAG Last administered on 10/12/17 21:42; Admin Dose 1 SUPP; Start 10/11/17 at 21:00 Doxycycline Hyclate/Sodium Chloride (Vibramycin/NS) 250 ml @ 250 mls/hr Q12 IVPB Last administered on 10/13/17 08:06; Admin Dose 250 MLS/HR; Start 10/11 at 21:00 Hydromorphone HCl (Dilaudid) 1 mg Q2H PRN IV PAIN Last administered on 16:08; Admin Dose 1 MG; Start 10/11/17 at 18:30 Diagnostic Test (Pha) (Accu-Chek) 1 ea 02 XX ; Start 10/13/17 at 02:00 Miscellaneous Information 1 ea NOTE XX ; Start 10/12/17 at 13:00 Glucose (Glutose) 15 gm Q15M PRN PO DECREASED GLUCOSE; Start 10/12/17 at 13:00 Glucose (Glutose) 22.5 gm Q15M PRN PO DECREASED GLUCOSE; Start 10/12/17 at 13: 00 Dextrose (D50w Syringe) 25 ml Q15M PRN IV DECREASED GLUCOSE; Start 10/12/17 at 13:00 Dextrose (D50w Syringe) 50 ml Q15M PRN IV DECREASED GLUCOSE; Start 10/12/17 at 13:00 Glucagon (Glucagen) 1 mg Q15M PRN IM DECREASED GLUCOSE; Start 10/12/17 at 13: 00 Glucose (Glutose) 15 gm Q15M PRN BUCCAL DECREASED GLUCOSE; Start 10/12/17 at 13:00 Insulin Detemir (Levemir) 18 unit DAILY@20 SC ; Start 10/13/17 at 20:00 Fluoxetine HCl (Prozac) 20 mg DAILY PO Last administered on 10/13/17 16:08; Admin Dose 20 MG; Start 10/13/17 at 15:30 KELSEY MADRID NP Oct 13, 2017 18:29
[2017-10-13] MEDS ORDERED: VANCOMYCIN IV PER PHARMACY XX SCH (19:00)
[2017-10-13 20:00] VITALS: BP 116/73; RESP 18
[2017-10-13] MEDS ORDERED: CASPOFUNGIN 70 MG in SOD CHLORIDE 0.9% 250 ML IVPB ONE (20:00)
[2017-10-13] MEDS ORDERED: INSULIN DETEMIR [LEVEMIR] 3ML CART SC SCH (20:00)
[2017-10-13] MEDS: MICONAZOLE 200 MG VAG SUPP VAG SCH (20:59)
[2017-10-13] MEDS ORDERED: VANCOMYCIN 1.75 GM in SOD CHLORIDE 0.9% 500 ML IVPB SCH (23:00)
[2017-10-13 23:13] LABS: VARICELLA-ZOSTER VIRUS AB IgM 1.21
[2017-10-13 23:47] LABS: VARICELLA-ZOSTER VIRUS AB IgG <135.00 INDEX (<= 0.90)
[2017-10-14 02:00] VITALS: BP 109/68; RESP 20
[2017-10-14] MEDS: ACCU-CHEK XX SCH (02:00)
[2017-10-14] MEDS: ACYCLOVIR 500 MG in SOD CHLORIDE 0.9% 100 ML IVPB SCH ×2 (05:30→14:09)
[2017-10-14] MEDS: HYDROmorphONE 1 MG/ML SYG IV PRN ×6 (05:36→22:40)
[2017-10-14 06:46] LABS: BASOPHIL # 0.1 10^3/ul (0.0-0.1); BASOPHILS % 0.5 % (0.0-2.0); EOSINOPHILS # 0.2 10^3/ul (0.0-0.5); EOSINOPHILS % 1.9 % (0.0-7.0); HEMATOCRIT 38.8 % (37.0-47.0); HEMOGLOBIN 13.1 g/dl (12.0-16.0); LYMPHOCYTES # 2.9 10^3/ul (0.8-2.9); LYMPHOCYTES % 29.8 % (15.0-51.0); MEAN CORPUSCULAR HEMOGLOBIN 28.4 pg (29.0-33.0); MEAN CORPUSCULAR HGB CONC 33.8 g/dl (32.0-37.0); MEAN PLATELET VOLUME 11.6 fl (7.4-10.4); MONOCYTE # 0.5 10^3/ul (0.3-0.9); MONOCYTES % 5.5 % (0.0-11.0); NEUTROPHILS % 61.6 % (39.0-77.0); PLATELET COUNT 294 10^3/UL (140-415); RED BLOOD COUNT 4.62 10^6/ul (4.20-5.40); RED CELL DISTRIBUTION WIDTH 11.6 % (11.5-14.5); WHITE BLOOD COUNT 9.7 10^3/ul (4.8-10.8)
[2017-10-14 07:26] LABS: CALCIUM 9.3 mg/dl (8.4-10.2); CREATININE 0.44 mg/dl (0.44-1.00); MAGNESIUM 1.4 mg/dl (1.7-2.5)
[2017-10-14 08:00] VITALS: BP 109/62; RESP 18
[2017-10-14] MEDS: FLUOXETINE 20 MG CAP PO SCH (08:34)
[2017-10-14] MEDS: metFORMIN 500 MG TAB PO SCH ×2 (08:34→17:21)
[2017-10-14] MEDS: INSULIN ASPART [NOVOLOG] 3 ML PEN SC SCH ×7 (08:34→21:00)
[2017-10-14] MEDS: BETAMETHASONE/CLOTRIMAZOLE 15 GM CR TOP SCH ×2 (08:36→20:46)
[2017-10-14] MEDS: LINAGLIPTIN 5 MG TABLET PO SCH (09:32)
[2017-10-14] MEDS ORDERED: VANCOMYCIN 1.5 GM in SOD CHLORIDE 0.9% 250 ML IVPB SCH (11:00)
[2017-10-14 14:00] VITALS: BP 107/64; RESP 18
--- NOTE | 2017-10-14 14:02 | PN ---
DATE: 10/14/2017 SUBJECTIVE: The patient is awake, looks comfortable, complaining of vaginal pain, no fevers. WBC today 9.7, no shift, no bands. BUN 10, creatinine 0.44. MICROBIOLOGY: Vaginal lesion growing strep, Alena albicans, enterococcus, Staphylococcus aureus a nd Alena glabrata. ANTIMICROBIALS: The patient is on: 1. . 2. Vancomycin. 2. Acyclovir. PHYSICAL EXAMINATION: GENERAL: Well-developed, young woman who is awake, in no distress. HEENT: Head atraumatic, normocephalic. Sclerae anicteric. Buccal mucosa pink. NECK: Supple. CHEST: Rise symmetrical. Breath sounds clear. HEART: S1, S2. ABDOMEN: Soft, bowel sounds present. EXTREMITIES: No cyanosis. ASSESSMENT: 1. lesions, cultures growing multiple organisms. Final sensitivities pending. 2. Diabetes. PLAN: The patient remains stable. Continue present care. Continue on current antibiotics. Await for clinical improvement. Dictated By: RICH SY WORK COUNSELOR for MIRA OVALLES MD NI/NTS Conf#: [id number] DID#: [id number] CC: SUMAN JIMENEZ MD;*EndCC*
[2017-10-14] MEDS: ONDANSETRON 4 MG INJ IV PRN ×2 (17:34→22:33)
[2017-10-14] MEDS ORDERED: CASPOFUNGIN 50 MG in SOD CHLORIDE 0.9% 250 ML IVPB SCH (18:00)
--- NOTE | 2017-10-14 18:02 | CONS ---
Date/Time of Note Date/Time of Note DATE: 10/14/17 TIME: 17:59 Assessment/Plan Assessment/Plan Problems: (1) Hyperglycemia due to type 2 diabetes mellitus Status: Acute Comment: Glucose levels above goal earlier today. Increased novolog from 8 to 12 qac w/ improvement. Also will increase levemir tonight from 18 to 24 units sq qhs. Will reeval tomorrow. Awaiting c-peptide and T1DM ab panel to eval T1 vs. T2 DM Consultation Date/Type/Reason Admit Date/Time Oct 13, 2017 at 11:39 Initial Consult Date 10/12/17 Type of Consultation: Endocrinology Reason for Consultation DM OOC, T1 vs. T2 Referring Provider: ALE CASON 24 HR Interval Summary Constitutional: diaphoresis (flushed feeling), No no complaints Detailed Summary Respiratory: no complaints Cardiovascular: no complaints Gastrointestinal: no complaints Genitourinary: discharge (purulent), other (burning) Musculoskeletal: no complaints Neurologic: headache Exam/Review of Systems Vital Signs Vitals VS - Last 72 Hours, by Label Date Time Temp Pulse Resp B/P Pulse Ox O2 Delivery O2 Flow Rate FiO2 10/14/17 14:00 98.8 71 18 107/64 100 10/14/17 08:00 98.2 78 18 109/62 95 10/14/17 02:00 98.1 66 20 109/68 95 10/13/17 20:00 98.5 79 18 116/73 96 10/13/17 14:44 98.6 68 17 110/70 95 10/13/17 08:02 98.4 68 17 105/64 98 10/13/17 02:00 97.6 73 17 111/52 95 10/12/17 20:40 97.0 102 19 121/82 97 10/12/17 16:29 98.0 82 18 123/80 96 10/12/17 09:50 97.4 62 18 107/71 95 10/12/17 02:00 98.5 73 20 121/75 98 10/11/17 20:00 98.2 79 20 126/80 99 Vital Signs Date Time Temp Pulse Resp B/P Pulse Ox O2 Delivery O2 Flow Rate FiO2 10/14/17 14:00 98.8 71 18 107/64 100 10/11/17 16:27 Room Air Intake and Output 1110/13/17 10/14/17 14:59 22:59 06:59 Intake Total 250 ml 1250 ml 1220 ml Output Total 1250 ml 1400 ml Balance 250 ml 0 ml -180 ml Exam Constitutional: alert, obese, oriented Psych: nl mood/affect, no complaints Respiratory: clear to auscultation, normal air movement Cardiovascular: nl pulses, regular rate and rhythm, No edema, No murmurs/extra sounds, No rub Gastrointestinal: bowel sounds, nl liver, spleen, non-tender, soft, No mass, No rebound or guarding Musculoskeletal: nl extremities to inspection Extremities: normal pulses, No clubbing, No cyanosis, No edema Neurological: LUMBER BEARER II-XII intact, nl mental status, nl speech, nl strength Additional Comments Bedside Glucose - 72 Hours Test 10/12/17 17:06 10/12/17 17:56 10/12/17 21:36 10/13/17 01:58 Bedside Glucose 238mg/dL (70-220) H 259mg/dL (70-220) H 208mg/dL (70-220) 221mg/dL (70-220) H Test 10/13/17 08:02 10/13/17 11:59 10/13/17 17:33 10/13/17 20:51 Bedside Glucose 212mg/dL (70-220) 220mg/dL (70-220) 187mg/dL (70-220) 260mg/dL (70-220) H Test 10/13/17 21:54 10/14/17 02:27 10/14/17 08:31 10/14/17 11:26 Bedside Glucose 244mg/dL (70-220) H 257mg/dL (70-220) H 318mg/dL (70-220) H 167mg/dL (70-220) Test 10/14/17 12:19 10/14/17 17:19 Bedside Glucose 193mg/dL (70-220) 125mg/dL (70-220) Results Result Diagram: 10/14/17 0532 10/14/17 0532 Results 24 hrs Laboratory Tests Test 10/13/17 20:51 10/13/17 21:54 10/14/17 02:27 10/14/17 05:32 Bedside Glucose 260 H 244 H 257 H White Blood Count 9.7 Red Blood Count 4.62 Hemoglobin 13.1 Hematocrit 38.8 Mean Corpuscular Volume 84.0 Mean Corpuscular Hemoglobin 28.4 L Mean Corpuscular Hemoglobin Concent 33.8 Red Cell Distribution Width 11.6 Platelet Count 294 Mean Platelet Volume 11.6 H Neutrophils % 61.6 Lymphocytes % 29.8 Monocytes % 5.5 Eosinophils % 1.9 Basophils % 0.5 Nucleated Red Blood Cells % 0.0 Neutrophils # 6.0 Lymphocytes # 2.9 Monocytes # 0.5 Eosinophils # 0.2 Basophils # 0.1 Nucleated Red Blood Cells # 0.0 Sodium Level 136 Potassium Level 4.0 Chloride Level 98 Carbon Dioxide Level 28 Anion Gap 14 Blood Urea Nitrogen 10 Creatinine 0.44 Glucose Level 285 H Calcium Level 9.3 Magnesium Level 1.4 L Test 10/14/17 08:31 10/14/17 11:26 10/14/17 12:19 10/14/17 17:19 Bedside Glucose 318 H 167 193 125 Medications Medications Current Medications Ondansetron HCl (Zofran Inj) 4 mg Q6H PRN IV NAUSEA AND/OR VOMITING Last administered on 10/14/17 17:34; Admin Dose 4 MG; Start 10/11/17 at 15:30 Acetaminophen (Tylenol Tab) 650 mg Q6H PRN PO PAIN LEVEL 1-3 OR FEVER; Start 10/11/17 at 15:30 Acetaminophen/ Hydrocodone Bitart ([place] (5/325)) 1 tab Q6H PRN PO MODERATE PAIN LEVEL 4-6; Start 10/11/17 at 15:30 Docusate Sodium (Colace) 100 mg Q12H PRN PO CONSTIPATION; Start 10/11/17 at 15 :30 Magnesium Hydroxide 30 ml 30 ml DAILY PRN PO CONSTIPATION; Start 10/11/17 at 15:30 Acyclovir/Sodium Chloride (Zovirax/NS) 100 ml @ 100 mls/hr Q8 IVPB Last administered on 10/14/17 14:09; Admin Dose 100 MLS/HR; Start 10/11/17 at 22: 00 Miscellaneous Information 1 ea NOTE XX ; Start 10/11/17 at 16:00 Betamethasone/ Clotrimazole (Lotrisone Cr) 1 applic BID TOP Last administered on 10/14/17 08:36; Admin Dose 1 APPLIC; Start 10/11/17 at 21:00 Miconazole (Monistat-3) 1 supp HS VAG Last administered on 10/13/17 20:59; Admin Dose 1 SUPP; Start 10/11/17 at 21:00 Hydromorphone HCl (Dilaudid) 1 mg Q2H PRN IV PAIN Last administered on 15:34; Admin Dose 1 MG; Start 10/11/17 at 18:30 Diagnostic Test (Pha) (Accu-Chek) 1 ea 02 XX ; Start 10/13/17 at 02:00 Miscellaneous Information 1 ea NOTE XX ; Start 10/12/17 at 13:00 Glucose (Glutose) 15 gm Q15M PRN PO DECREASED GLUCOSE; Start 10/12/17 at 13:00 Glucose (Glutose) 22.5 gm Q15M PRN PO DECREASED GLUCOSE; Start 10/12/17 at 13: 00 Dextrose (D50w Syringe) 25 ml Q15M PRN IV DECREASED GLUCOSE; Start 10/12/17 at 13:00 Dextrose (D50w Syringe) 50 ml Q15M PRN IV DECREASED GLUCOSE; Start 10/12/17 at 13:00 Glucagon (Glucagen) 1 mg Q15M PRN IM DECREASED GLUCOSE; Start 10/12/17 at 13: 00 Glucose (Glutose) 15 gm Q15M PRN BUCCAL DECREASED GLUCOSE; Start 10/12/17 at 13:00 Fluoxetine HCl 20 mg 20 mg DAILY PO Last administered on 10/14/17 08:34; Admin Dose 20 MG; Start 10/13/17 at 15:30 Caspofungin/ Sodium Chloride (Cancidas/NS) 250 ml @ 250 mls/hr Q24H IVPB Last administered on 10/14/17 17:20; Admin Dose 250 MLS/HR; Start 10/14/17 at 18: 00 Insulin Detemir (Levemir) 24 unit DAILY@20 SC ; Start 10/14/17 at 20:00 Linagliptin 5 mg 5 mg DAILY PO Last administered on 10/14/17 09:32; Admin Dose 5 MG; Start 10/14/17 at 09:00 Vancomycin HCl/ Sodium Chloride (Vancocin/NS) 250 ml @ 83.333 mls/ hr Q8H IVPB ; Start 10/14/17 at 19:00 Miscellaneous Information 1 ONCE ONCE XX ; Start 10/15/17 at 10:00; Stop at 10:01 Magnesium Sulfate (Magnesium Sulfate 4 Gm/100 ml) 100 ml @ 25 mls/hr ONCE ONCE IVPB ; Start 10/14/17 at 20:00; Stop 10/14/17 at 23:59 BRETT BRADLEY MD Oct 14, 2017 18:02
[2017-10-14] MEDS: VANCOMYCIN 1.25 GM in SOD CHLORIDE 0.9% 250 ML IVPB SCH (19:15)
[2017-10-14 20:00] VITALS: BP 118/76; RESP 20
[2017-10-14] MEDS ORDERED: MAGNESIUM SULFATE 4 GM/100 ML 100 ML IVPB ONE (20:00)
[2017-10-14] MEDS: INSULIN DETEMIR [LEVEMIR] 3ML CART SC SCH (20:41)
[2017-10-14 22:28] LABS: ISLET CELL ANTIBODY SCREEN NEGATIVE (NEGATIVE)
[2017-10-15] MEDS: ACCU-CHEK XX SCH (01:33)
[2017-10-15 02:28] VITALS: BP 109/65; RESP 19
[2017-10-15] MEDS: ACYCLOVIR 500 MG in SOD CHLORIDE 0.9% 100 ML IVPB SCH ×2 (02:36→06:46)
[2017-10-15] MEDS: VANCOMYCIN 1.25 GM in SOD CHLORIDE 0.9% 250 ML IVPB SCH ×3 (03:40→19:30)
[2017-10-15] MEDS: INSULIN ASPART [NOVOLOG] 3 ML PEN SC SCH ×7 (07:35→20:45)
[2017-10-15 08:05] VITALS: BP 106/59; RESP 18
[2017-10-15] MEDS: metFORMIN 500 MG TAB PO SCH ×2 (08:27→17:34)
[2017-10-15] MEDS: FLUOXETINE 20 MG CAP PO SCH (08:27)
[2017-10-15] MEDS: LINAGLIPTIN 5 MG TABLET PO SCH (08:27)
[2017-10-15] MEDS: BETAMETHASONE/CLOTRIMAZOLE 15 GM CR TOP SCH ×2 (08:33→21:30)
[2017-10-15] MEDS: ONDANSETRON 4 MG INJ IV PRN ×2 (09:40→15:49)
[2017-10-15] MEDS: HYDROmorphONE 1 MG/ML SYG IV PRN ×4 (09:57→23:52)
--- NOTE | 2017-10-15 13:34 | CONS ---
Date/Time of Note Date/Time of Note DATE: 10/15/17 TIME: 13:30 Assessment/Plan Assessment/Plan Problems: (1) Hyperglycemia due to type 2 diabetes mellitus Status: Acute Comment: Excellent glycemic control. Glucose values in normal range. Will cont. current therapy. Await c-peptide and T1DM ab panel to determine DM type. 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 Should have thyroid function monitored in the future. Consultation Date/Type/Reason Admit Date/Time Oct 13, 2017 at 11:39 Initial Consult Date 10/12/17 Type of Consultation: Endocrinology Reason for Consultation DM OOC, T1 vs. T2 Referring Provider: ALE CASON 24 HR Interval Summary Constitutional: no complaints Detailed Summary Respiratory: no complaints Cardiovascular: no complaints Gastrointestinal: nausea Genitourinary: other (pain) Musculoskeletal: no complaints Neurologic: no complaints Exam/Review of Systems Vital Signs Vitals VS - Last 72 Hours, by Label Date Time Temp Pulse Resp B/P Pulse Ox O2 Delivery O2 Flow Rate FiO2 10/15/17 08:05 98.3 75 18 106/59 100 10/15/17 02:28 97.6 80 19 109/65 98 10/14/17 20:00 98.2 79 20 118/76 96 10/14/17 14:00 98.8 71 18 107/64 100 10/14/17 08:00 98.2 78 18 109/62 95 10/14/17 02:00 98.1 66 20 109/68 95 10/13/17 20:00 98.5 79 18 116/73 96 10/13/17 14:44 98.6 68 17 110/70 95 10/13/17 08:02 98.4 68 17 105/64 98 10/13/17 02:00 97.6 73 17 111/52 95 10/12/17 20:40 97.0 102 19 121/82 97 10/12/17 16:29 98.0 82 18 123/80 96 Vital Signs Date Time Temp Pulse Resp B/P Pulse Ox O2 Delivery O2 Flow Rate FiO2 10/15/17 08:05 98.3 75 18 106/59 100 10/11/17 16:27 Room Air Intake and Output 10/14/17 10/14/17 10/15/17 15:00 23:00 07:00 Intake Total 1720 ml 1350 ml Output Total 1600 ml 800 ml Balance 120 ml 550 ml Exam Constitutional: alert, obese, oriented Psych: nl mood/affect, no complaints Respiratory: clear to auscultation, normal air movement Cardiovascular: nl pulses, regular rate and rhythm, No edema, No murmurs/extra sounds, No rub Gastrointestinal: bowel sounds, nl liver, spleen, non-tender, soft, No mass, No rebound or guarding Musculoskeletal: nl extremities to inspection Extremities: normal pulses, No clubbing, No cyanosis, No edema Neurological: PRECISION DEVICES INSPECTOR/TESTER II-XII intact, nl mental status, nl speech, nl strength Additional Comments Bedside Glucose - 72 Hours Test 10/12/17 17:06 10/12/17 17:56 10/12/17 21:36 10/13/17 01:58 Bedside Glucose 238mg/dL (70-220) H 259mg/dL (70-220) H 208mg/dL (70-220) 221mg/dL (70-220) H Test 10/13/17 08:02 10/13/17 11:59 10/13/17 17:33 10/13/17 20:51 Bedside Glucose 212mg/dL (70-220) 220mg/dL (70-220) 187mg/dL (70-220) 260mg/dL (70-220) H Test 10/13/17 21:54 10/14/17 02:27 10/14/17 08:31 10/14/17 11:26 Bedside Glucose 244mg/dL (70-220) H 257mg/dL (70-220) H 318mg/dL (70-220) H 167mg/dL (70-220) Test 10/14/17 12:19 10/14/17 17:19 10/14/17 20:27 10/14/17 21:58 Bedside Glucose 193mg/dL (70-220) 125mg/dL (70-220) 107mg/dL (70-220) 114mg/dL (70-220) Test 10/15/17 08:07 10/15/17 11:52 Bedside Glucose 146mg/dL (70-220) 168mg/dL (70-220) Results Result Diagram: 10/14/17 0532 10/14/17 0532 Results 24 hrs Laboratory Tests Test 10/14/17 17:19 10/14/17 20:27 10/14/17 21:58 10/15/17 08:07 Bedside Glucose 125 107 114 146 Test 10/15/17 10:22 10/15/17 11:52 Vancomycin Level Trough 11.7 Bedside Glucose 168 Medications Medications Current Medications Ondansetron HCl (Zofran Inj) 4 mg Q6H PRN IV NAUSEA AND/OR VOMITING Last administered on 10/15/17 09:40; Admin Dose 4 MG; Start 10/11/17 at 15:30 Acetaminophen (Tylenol Tab) 650 mg Q6H PRN PO PAIN LEVEL 1-3 OR FEVER; Start 10/11/17 at 15:30 Acetaminophen/ Hydrocodone Bitart ([place] (5/325)) 1 tab Q6H PRN PO MODERATE PAIN LEVEL 4-6; Start 10/11/17 at 15:30 Docusate Sodium (Colace) 100 mg Q12H PRN PO CONSTIPATION Last administered on 10/14/17 20:43; Admin Dose 100 MG; Start 10/11/17 at 15:30 Magnesium Hydroxide 30 ml 30 ml DAILY PRN PO CONSTIPATION; Start 10/11/17 at 15:30 Acyclovir/Sodium Chloride (Zovirax/NS) 100 ml @ 100 mls/hr Q8 IVPB Last administered on 10/15/17 06:46; Admin Dose 100 MLS/HR; Start 10/11/17 at 22: 00 Miscellaneous Information 1 ea NOTE XX ; Start 10/11/17 at 16:00 Betamethasone/ Clotrimazole (Lotrisone Cr) 1 applic BID TOP Last administered on 10/15/17 08:33; Admin Dose 1 APPLIC; Start 10/11/17 at 21:00 Hydromorphone HCl (Dilaudid) 1 mg Q2H PRN IV PAIN Last administered on 09:57; Admin Dose 1 MG; Start 10/11/17 at 18:30 Diagnostic Test (Pha) (Accu-Chek) 1 ea 02 XX ; Start 10/13/17 at 02:00 Miscellaneous Information 1 ea NOTE XX ; Start 10/12/17 at 13:00 Glucose (Glutose) 15 gm Q15M PRN PO DECREASED GLUCOSE; Start 10/12/17 at 13:00 Glucose (Glutose) 22.5 gm Q15M PRN PO DECREASED GLUCOSE; Start 10/12/17 at 13: 00 Dextrose (D50w Syringe) 25 ml Q15M PRN IV DECREASED GLUCOSE; Start 10/12/17 at 13:00 Dextrose (D50w Syringe) 50 ml Q15M PRN IV DECREASED GLUCOSE; Start 10/12/17 at 13:00 Glucagon (Glucagen) 1 mg Q15M PRN IM DECREASED GLUCOSE; Start 10/12/17 at 13: 00 Glucose (Glutose) 15 gm Q15M PRN BUCCAL DECREASED GLUCOSE; Start 10/12/17 at 13:00 Fluoxetine HCl 20 mg 20 mg DAILY PO Last administered on 10/15/17 08:27; Admin Dose 20 MG; Start 10/13/17 at 15:30 Caspofungin/ Sodium Chloride (Cancidas/NS) 250 ml @ 250 mls/hr Q24H IVPB Last administered on 10/14/17 17:20; Admin Dose 250 MLS/HR; Start 10/14/17 at 18: 00 Insulin Detemir (Levemir) 24 unit DAILY@20 SC Last administered on 10/14/17 20:41; Admin Dose 24 UNIT; Start 10/14/17 at 20:00 Linagliptin 5 mg 5 mg DAILY PO Last administered on 10/15/17 08:27; Admin Dose 5 MG; Start 10/14/17 at 09:00 Vancomycin HCl/ Sodium Chloride (Vancocin/NS) 250 ml @ 83.333 mls/ hr Q8H IVPB Last administered on 10/15/17 11:50; Admin Dose 83.333 MLS/HR; Start at 19:00 BRETT BRADLEY MD Oct 15, 2017 13:34
--- NOTE | 2017-10-15 15:10 | CONS ---
Date/Time of Note Date/Time of Note DATE: 10/15/17 TIME: 15:08 Assessment/Plan Assessment/Plan Chief Complaint/Hosp Course SUBJECTIVE: No acute events, no fevers, looks comfortable MICROBIOLOGY: Vaginal lesion growing strep, Alena albicans, enterococcus, Staphylococcus aureus and Alena glabrata. ANTIMICROBIALS: 1. Cancidas 2. Vancomycin. 2. Acyclovir. PHYSICAL EXAMINATION: GENERAL: Well-developed, young woman who is awake, in no distress. HEENT: Head atraumatic, normocephalic. Sclerae anicteric. Buccal mucosa pink. NECK: Supple. CHEST: Rise symmetrical. Breath sounds clear. HEART: S1, S2. ABDOMEN: Soft, bowel sounds present. EXTREMITIES: No cyanosis. ASSESSMENT: 1. Vaginal lesions, cultures growing multiple organisms. 2. Diabetes. PLAN: The patient remains stable. Continue present care. Continue on current antibiotics. Await for clinical improvement. DC acyclovir Problems: Consultation Date/Type/Reason Admit Date/Time Oct 13, 2017 at 11:39 Initial Consult Date 10/12/17 Type of Consultation: ID Referring Provider: ALE CASON Exam/Review of Systems Vital Signs Vitals Vital Signs Date Time Temp Pulse Resp B/P Pulse Ox O2 Delivery O2 Flow Rate FiO2 10/15/17 08:05 98.3 75 18 106/59 100 10/11/17 16:27 Room Air Intake and Output 10/14/17 10/14/17 10/15/17 15:00 23:00 07:00 Intake Total 1720 ml 1350 ml Output Total 1600 ml 800 ml Balance 120 ml 550 ml Results Result Diagram: 10/14/17 0532 10/14/17 0532 Results 24 hrs Laboratory Tests Test 10/14/17 17:19 10/14/17 20:27 10/14/17 21:58 10/15/17 08:07 Bedside Glucose 125 107 114 146 Test 10/15/17 10:22 10/15/17 11:52 Vancomycin Level Trough 11.7 Bedside Glucose 168 Medications Medications Current Medications Ondansetron HCl (Zofran Inj) 4 mg Q6H PRN IV NAUSEA AND/OR VOMITING Last administered on 10/15/17t 09:40; Admin Dose 4 MG; Start 10/11/17 at 15:30 Acetaminophen (Tylenol Tab) 650 mg Q6H PRN PO PAIN LEVEL 1-3 OR FEVER; Start 10/11/17 at 15:30 Acetaminophen/ Hydrocodone Bitart ([place] (5/325)) 1 tab Q6H PRN PO MODERATE PAIN LEVEL 4-6; Start 10/11/17 at 15:30 Docusate Sodium (Colace) 100 mg Q12H PRN PO CONSTIPATION Last administered on 10/14/17 20:43; Admin Dose 100 MG; Start 10/11/17 at 15:30 Magnesium Hydroxide 30 ml 30 ml DAILY PRN PO CONSTIPATION; Start 10/11/17 at 15:30 Acyclovir/Sodium Chloride (Zovirax/NS) 100 ml @ 100 mls/hr Q8 IVPB Last administered on 10/15/17 06:46; Admin Dose 100 MLS/HR; Start 10/11/17 at 22: 00 Miscellaneous Information 1 ea NOTE XX ; Start 10/11/17 at 16:00 Betamethasone/ Clotrimazole (Lotrisone Cr) 1 applic BID TOP Last administered on 10/15/17 08:33; Admin Dose 1 APPLIC; Start 10/11/17 at 21:00 Hydromorphone HCl (Dilaudid) 1 mg Q2H PRN IV PAIN Last administered on 14:53; Admin Dose 1 MG; Start 10/11/17 at 18:30 Diagnostic Test (Pha) (Accu-Chek) 1 ea 02 XX ; Start 10/13/17 at 02:00 Miscellaneous Information 1 ea NOTE XX ; Start 10/12/17 at 13:00 Glucose (Glutose) 15 gm Q15M PRN PO DECREASED GLUCOSE; Start 10/12/17 at 13:00 Glucose (Glutose) 22.5 gm Q15M PRN PO DECREASED GLUCOSE; Start 10/12/17 at 13: 00 Dextrose (D50w Syringe) 25 ml Q15M PRN IV DECREASED GLUCOSE; Start 10/12/17 at 13:00 Dextrose (D50w Syringe) 50 ml Q15M PRN IV DECREASED GLUCOSE; Start 10/12/17 at 13:00 Glucagon (Glucagen) 1 mg Q15M PRN IM DECREASED GLUCOSE; Start 10/12/17 at 13: 00 Glucose (Glutose) 15 gm Q15M PRN BUCCAL DECREASED GLUCOSE; Start 10/12/17 at 13:00 Fluoxetine HCl 20 mg 20 mg DAILY PO Last administered on 10/15/17 08:27; Admin Dose 20 MG; Start 10/13/17 at 15:30 Caspofungin/ Sodium Chloride (Cancidas/NS) 250 ml @ 250 mls/hr Q24H IVPB Last administered on 10/14/17 17:20; Admin Dose 250 MLS/HR; Start 10/14/17 at 18: 00 Insulin Detemir (Levemir) 24 unit DAILY@20 SC Last administered on 10/14/17 20:41; Admin Dose 24 UNIT; Start 10/14/17 at 20:00 Linagliptin 5 mg 5 mg DAILY PO Last administered on 10/15/17 08:27; Admin Dose 5 MG; Start 10/14/17 at 09:00 Vancomycin HCl/ Sodium Chloride (Vancocin/NS) 250 ml @ 83.333 mls/ hr Q8H IVPB Last administered on 10/15/17 11:50; Admin Dose 83.333 MLS/HR; Start at 19:00 RICH SY NP Oct 15, 2017 15:10
--- NOTE | 2017-10-15 16:51 | PN ---
Date/Time of Note Date/Time of Note DATE: 10/15/17 TIME: 16:48 Assessment/Plan VTE Prophylaxis VTE Prophylaxis Intervention: LMWH Lines/Catheters IV Catheter Type (from Nrsg): Saline Lock Urinary Cath still in place: Yes Reason Cath still needed: urinary retention Assessment/Plan Chief Complaint/Hosp Course 22 yo female wtih DMII who presented with painful vaginitis likley 2/2 HSV with surroudnign cellulitis and hyperglycemia Vaginitis: - Likely HSV - Continue ayclovir Cellulitis: - Abx course per ID, can be narrowed DMII: - Sugars controlled, continued current regimen per endocrine Problems: Subjective 24 Hr Interval Summary Free Text/Dictation sugars controlled cellulitis resolved on exam still with painful vaginitis Exam/Review of Systems Vital Signs Vitals Vital Signs Date Time Temp Pulse Resp B/P Pulse Ox O2 Delivery O2 Flow Rate FiO2 10/15/17 08:05 98.3 75 18 106/59 100 10/11/17 16:27 Room Air Intake and Output 10/14/17 10/14/17 10/15/17 15:00 23:00 07:00 Intake Total 1720 ml 1350 ml Output Total 1600 ml 800 ml Balance 120 ml 550 ml Exam herpetic lesions to vulva malik in place no surroudnign celluitic changes no discharge Results Result Diagram: 10/14/17 0532 10/14/17 0532 Results 24 hrs Laboratory Tests Test 10/14/17 17:19 10/14/17 20:27 10/14/17 21:58 10/15/17 08:07 Bedside Glucose 125 107 114 146 Test 10/15/17 10:22 10/15/17 11:52 Vancomycin Level Trough 11.7 Bedside Glucose 168 Medications Medications Current Medications Ondansetron HCl (Zofran Inj) 4 mg Q6H PRN IV NAUSEA AND/OR VOMITING Last administered on 10/15/17t 15:49; Admin Dose 4 MG; Start 10/11/17 at 15:30 Acetaminophen (Tylenol Tab) 650 mg Q6H PRN PO PAIN LEVEL 1-3 OR FEVER; Start 10/11/17 at 15:30 Acetaminophen/ Hydrocodone Bitart ([place] (5/325)) 1 tab Q6H PRN PO MODERATE PAIN LEVEL 4-6; Start 10/11/17 at 15:30 Docusate Sodium (Colace) 100 mg Q12H PRN PO CONSTIPATION Last administered on 10/14/17 20:43; Admin Dose 100 MG; Start 10/11/17 at 15:30 Magnesium Hydroxide (Milk Of Mag) 30 ml DAILY PRN PO CONSTIPATION; Start 10/11 at 15:30 Miscellaneous Information 1 ea NOTE XX ; Start 10/11/17 at 16:00 Betamethasone/ Clotrimazole (Lotrisone Cr) 1 applic BID TOP Last administered on 10/15/17 08:33; Admin Dose 1 APPLIC; Start 10/11/17 at 21:00 Hydromorphone HCl (Dilaudid) 1 mg Q2H PRN IV PAIN Last administered on 14:53; Admin Dose 1 MG; Start 10/11/17 at 18:30 Diagnostic Test (Pha) (Accu-Chek) 1 ea 02 XX ; Start 10/13/17 at 02:00 Miscellaneous Information 1 ea NOTE XX ; Start 10/12/17 at 13:00 Glucose (Glutose) 15 gm Q15M PRN PO DECREASED GLUCOSE; Start 10/12/17 at 13:00 Glucose (Glutose) 22.5 gm Q15M PRN PO DECREASED GLUCOSE; Start 10/12/17 at 13: 00 Dextrose (D50w Syringe) 25 ml Q15M PRN IV DECREASED GLUCOSE; Start 10/12/17 at 13:00 Dextrose (D50w Syringe) 50 ml Q15M PRN IV DECREASED GLUCOSE; Start 10/12/17 at 13:00 Glucagon (Glucagen) 1 mg Q15M PRN IM DECREASED GLUCOSE; Start 10/12/17 at 13: 00 Glucose (Glutose) 15 gm Q15M PRN BUCCAL DECREASED GLUCOSE; Start 10/12/17 at 13:00 Fluoxetine HCl (Prozac) 20 mg DAILY PO Last administered on 10/15/17 08:27; Admin Dose 20 MG; Start 10/13/17 at 15:30 Insulin Detemir (Levemir) 24 unit DAILY@20 SC Last administered on 10/14/17 20:41; Admin Dose 24 UNIT; Start 10/14/17 at 20:00 Linagliptin 5 mg 5 mg DAILY PO Last administered on 10/15/17 08:27; Admin Dose 5 MG; Start 10/14/17 at 09:00 Vancomycin HCl/ Sodium Chloride (Vancocin/NS) 250 ml @ 83.333 mls/ hr Q8H IVPB Last administered on 10/15/17t 11:50; Admin Dose 83.333 MLS/HR; Start at 19:00 Voriconazole (Vfend) 200 mg BID PO ; Start 10/15/17 at 21:00 YESY BANDA MD Oct 15, 2017 16:51
[2017-10-15] MEDS: INSULIN DETEMIR [LEVEMIR] 3ML CART SC SCH (20:00)
[2017-10-15 20:55] VITALS: BP 122/80; RESP 20
[2017-10-15] MEDS: VORICONAZOLE 200 MG TAB PO SCH (21:32)
[2017-10-16 02:00] VITALS: BP 105/67; RESP 17
[2017-10-16] MEDS: ACCU-CHEK XX SCH (02:00)
[2017-10-16] MEDS: VANCOMYCIN 1.25 GM in SOD CHLORIDE 0.9% 250 ML IVPB SCH ×3 (03:12→20:26)
[2017-10-16 06:44] LABS: CREATININE 0.63 mg/dl (0.44-1.00)
[2017-10-16 08:14] VITALS: BP 102/55; RESP 18
[2017-10-16] MEDS: LINAGLIPTIN 5 MG TABLET PO SCH (09:22)
[2017-10-16] MEDS: FLUOXETINE 20 MG CAP PO SCH (09:22)
[2017-10-16] MEDS: metFORMIN 500 MG TAB PO SCH ×2 (09:22→17:32)
[2017-10-16] MEDS: BETAMETHASONE/CLOTRIMAZOLE 15 GM CR TOP SCH ×2 (09:22→20:40)
[2017-10-16] MEDS: VORICONAZOLE 200 MG TAB PO SCH ×2 (09:22→20:25)
[2017-10-16] MEDS: INSULIN ASPART [NOVOLOG] 3 ML PEN SC SCH ×7 (09:24→20:39)
[2017-10-16] MEDS: ONDANSETRON 4 MG INJ IV PRN ×2 (11:15→20:16)
[2017-10-16] MEDS: HYDROmorphONE 1 MG/ML SYG IV PRN ×4 (11:16→23:08)
[2017-10-16] MEDS ORDERED: ACYCLOVIR 800 MG TAB PO SCH (13:00)
--- NOTE | 2017-10-16 13:32 | PN ---
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, start valtrex - Fungal coverage per ID - will reach out to mechanical engineering teacher again for evaluation Cellulitis: - Abx course per ID, can be narrowed DMII: - Sugars controlled, continued current regimen per endocrine Problems: Subjective 24 Hr Interval Summary Free Text/Dictation Vaginal lesions still very painful Not resolving as she had hoped Exam/Review of Systems Vital Signs Vitals Vital Signs Date Time Temp Pulse Resp B/P Pulse Ox O2 Delivery O2 Flow Rate FiO2 10/16/17 08:14 98.5 85 18 102/55 99 Intake and Output 10/15/17 10/15/17 10/16/17 14:59 22:59 06:59 Intake Total 350 ml 1220 ml 800 ml Output Total 1900 ml 900 ml Balance 350 ml -680 ml -100 ml Results Result Diagram: 10/14/17 0532 10/16/17 0518 Results 24 hrs Laboratory Tests Test 10/15/17 17:33 10/15/17 20:43 10/16/17 05:18 10/16/17 08:48 Bedside Glucose 127 90 213 Blood Urea Nitrogen 14 Creatinine 0.63 Test 10/16/17 12:00 10/16/17 12:39 Bedside Glucose 86 98 Medications Medications Current Medications Ondansetron HCl (Zofran Inj) 4 mg Q6H PRN IV NAUSEA AND/OR VOMITING Last administered on 10/16/17t 11:15; Admin Dose 4 MG; Start 10/11/17 at 15:30 Acetaminophen (Tylenol Tab) 650 mg Q6H PRN PO PAIN LEVEL 1-3 OR FEVER; Start 10/11/17 at 15:30 Acetaminophen/ Hydrocodone Bitart ([place] (5/325)) 1 tab Q6H PRN PO MODERATE PAIN LEVEL 4-6; Start 10/11/17 at 15:30 Docusate Sodium (Colace) 100 mg Q12H PRN PO CONSTIPATION Last administered on 10/14/17 20:43; Admin Dose 100 MG; Start 10/11/17 at 15:30 Magnesium Hydroxide (Milk Of Mag) 30 ml DAILY PRN PO CONSTIPATION; Start 10/11 at 15:30 Miscellaneous Information 1 ea NOTE XX ; Start 10/11/17 at 16:00 Betamethasone/ Clotrimazole (Lotrisone Cr) 1 applic BID TOP Last administered on 10/16/17 09:22; Admin Dose 1 APPLIC; Start 10/11/17 at 21:00 Hydromorphone HCl (Dilaudid) 1 mg Q2H PRN IV PAIN Last administered on 11:16; Admin Dose 1 MG; Start 10/11/17 at 18:30 Diagnostic Test (Pha) (Accu-Chek) 1 ea 02 XX ; Start 10/13/17 at 02:00 Miscellaneous Information 1 ea NOTE XX ; Start 10/12/17 at 13:00 Glucose (Glutose) 15 gm Q15M PRN PO DECREASED GLUCOSE; Start 10/12/17 at 13:00 Glucose (Glutose) 22.5 gm Q15M PRN PO DECREASED GLUCOSE; Start 10/12/17 at 13: 00 Dextrose (D50w Syringe) 25 ml Q15M PRN IV DECREASED GLUCOSE; Start 10/12/17 at 13:00 Dextrose (D50w Syringe) 50 ml Q15M PRN IV DECREASED GLUCOSE; Start 10/12/17 at 13:00 Glucagon (Glucagen) 1 mg Q15M PRN IM DECREASED GLUCOSE; Start 10/12/17 at 13: 00 Glucose (Glutose) 15 gm Q15M PRN BUCCAL DECREASED GLUCOSE; Start 10/12/17 at 13:00 Fluoxetine HCl (Prozac) 20 mg DAILY PO Last administered on 10/16/17 09:22; Admin Dose 20 MG; Start 10/13/17 at 15:30 Insulin Detemir (Levemir) 24 unit DAILY@20 SC Last administered on 10/14/17 20:41; Admin Dose 24 UNIT; Start 10/14/17 at 20:00 Linagliptin 5 mg 5 mg DAILY PO Last administered on 10/16/17 09:22; Admin Dose 5 MG; Start 10/14/17 at 09:00 Vancomycin HCl/ Sodium Chloride (Vancocin/NS) 250 ml @ 83.333 mls/ hr Q8H IVPB Last administered on 10/16/17 11:16; Admin Dose 83.333 MLS/HR; Start at 19:00 Voriconazole (Vfend) 200 mg BID PO Last administered on 10/16/17 09:22; Admin Dose 200 MG; Start 10/15/17 at 21:00 Acyclovir (Zovirax) 800 mg TID PO Last administered on 10/16/17 12:43; Admin Dose 800 MG; Start 10/16/17 at 13:00 Valacyclovir HCl (Valtrex) 1,000 mg BID PO ; Start 10/16/17 at 13:30 YESY BANDA MD Oct 16, 2017 13:32
[2017-10-16] MEDS: VALACYCLOVIR 500 MG TAB PO SCH ×2 (14:48→20:26)
--- NOTE | 2017-10-16 17:48 | PN ---
DATE: 10/16/2017 SUBJECTIVE: The patient is alert, looks comfortable, no fevers. No labs this morning. Patient is on: 1. Valtrex. 2. Voriconazole. 3. Vancomycin. MICROBIOLOGY: Vaginal drainage culture grew Staphylococcus aureus, Alena albicans, Alena glabra ta strep and Enterococcus species. Varicella zoster IgM antibody serology came back high at 1.21. INDWELLINGS: The patient has Thomas. PHYSICAL EXAMINATION: GENERAL: Well-developed, young, white woman who is alert, in no distress. HEENT: Head atraumatic, normocephalic. Sclerae anicteric. Buccal mucosa pink. NECK: Supple. LUNGS: Chest rise symmetrical. Breath sounds clear. HEART: S1, S2. ABDOMEN: Soft. Bowel tones present. EXTREMITIES: Without cyanosis. SKIN: The patient has vaginal excoriation on the left labia that is painful. No vesicles noted. ASSESSMENT 1. Painful vaginal lesions. 2. Diabetes. PLAN: The patient remains stable. We will continue her on current regimen. We will add topical Lo trimin cream to the area. Control blood sugar. Continue supportive care. Dictated By: RICH SY RUG UNDERLAY MACHINE OPERATOR for MIRA POTTER/NTS Conf#: [id number] DID#: [id number]
--- NOTE | 2017-10-16 18:33 | CONS ---
Date/Time of Note Date/Time of Note DATE: 10/16/17 TIME: 18:26 Assessment/Plan Assessment/Plan Problems: (1) Hyperglycemia due to type 2 diabetes mellitus Status: Acute Comment: BG values excellent and even below goal at this point. Will reduce levemir back from 24 to 16 units sq qhs and Novolog from 12 back to 8 units qac. C-peptide is in normal range suggesting likely T2DM and not T1 but awaiting full T1DM ab panel. Consultation Date/Type/Reason Admit Date/Time Oct 13, 2017 at 11:39 Initial Consult Date 10/12/17 Type of Consultation: Endocrinology Reason for Consultation Blood glucose OOC, T1 vs. T2DM Referring Provider: ALE CASON 24 HR Interval Summary Constitutional: improved, no complaints Detailed Summary Respiratory: no complaints Cardiovascular: no complaints Gastrointestinal: constipation, nausea, pain Genitourinary: discharge (yeast like), other (pain ) Musculoskeletal: no complaints Neurologic: no complaints Exam/Review of Systems Vital Signs Vitals VS - Last 72 Hours, by Label Date Time Temp Pulse Resp B/P Pulse Ox O2 Delivery O2 Flow Rate FiO2 10/16/17 08:14 98.5 85 18 102/55 99 10/16/17 02:00 98.5 75 17 105/67 96 10/15/17 20:55 97.4 78 20 122/80 98 10/15/17 08:05 98.3 75 18 106/59 100 10/15/17 02:28 97.6 80 19 109/65 98 10/14/17 20:00 98.2 79 20 118/76 96 10/14/17 14:00 98.8 71 18 107/64 100 10/14/17 08:00 98.2 78 18 109/62 95 10/14/17 02:00 98.1 66 20 109/68 95 10/13/17 20:00 98.5 79 18 116/73 96 Vital Signs Date Time Temp Pulse Resp B/P Pulse Ox O2 Delivery O2 Flow Rate FiO2 10/16/17 08:14 98.5 85 18 102/55 99 Intake and Output 10/15/17 10/15/17 10/16/17 15:00 23:00 07:00 Intake Total 350 ml 1470 ml 550 ml Output Total 1900 ml 900 ml Balance 350 ml -430 ml -350 ml Exam Constitutional: alert, obese, oriented Psych: nl mood/affect, no complaints Respiratory: clear to auscultation, normal air movement Cardiovascular: nl pulses, regular rate and rhythm, No edema, No murmurs/extra sounds, No rub Gastrointestinal: bowel sounds, nl liver, spleen, soft, tender (TTP BLQ), No non-tender Musculoskeletal: nl extremities to inspection Extremities: normal pulses, No clubbing, No cyanosis, No edema Neurological: SECONDARY SCHOOL TEACHER II-XII intact, nl mental status, nl speech, nl strength Additional Comments Bedside Glucose - 72 Hours Test 10/13/17 20:51 10/13/17 21:54 10/14/17 02:27 10/14/17 08:31 Bedside Glucose 260mg/dL (70-220) H 244mg/dL (70-220) H 257mg/dL (70-220) H 318mg/dL (70-220) H Test 10/14/17 11:26 10/14/17 12:19 10/14/17 17:19 10/14/17 20:27 Bedside Glucose 167mg/dL (70-220) 193mg/dL (70-220) 125mg/dL (70-220) 107mg/dL (70-220) Test 10/14/17 21:58 10/15/17 08:07 10/15/17 11:52 10/15/17 17:33 Bedside Glucose 114mg/dL (70-220) 146mg/dL (70-220) 168mg/dL (70-220) 127mg/dL (70-220) Test 10/15/17 20:43 10/16/17 08:48 10/16/17 12:00 10/16/17 12:39 Bedside Glucose 90mg/dL (70-220) 213mg/dL (70-220) 86mg/dL (70-220) 98mg/dL (70-220) Test 10/16/17 17:30 Bedside Glucose 119mg/dL (70-220) Results Result Diagram: 10/14/17 0532 10/16/17 0518 Results 24 hrs Laboratory Tests Test 10/15/17 20:43 10/16/17 05:18 10/16/17 08:48 10/16/17 12:00 Bedside Glucose 90 213 86 Blood Urea Nitrogen 14 Creatinine 0.63 Test 10/16/17 12:39 10/16/17 17:30 Bedside Glucose 98 119 Medications Medications Current Medications Ondansetron HCl (Zofran Inj) 4 mg Q6H PRN IV NAUSEA AND/OR VOMITING Last administered on 10/16/17 11:15; Admin Dose 4 MG; Start 10/11/17 at 15:30 Acetaminophen (Tylenol Tab) 650 mg Q6H PRN PO PAIN LEVEL 1-3 OR FEVER; Start 10/11/17 at 15:30 Acetaminophen/ Hydrocodone Bitart ([place] (5/325)) 1 tab Q6H PRN PO MODERATE PAIN LEVEL 4-6; Start 10/11/17 at 15:30 Docusate Sodium (Colace) 100 mg Q12H PRN PO CONSTIPATION Last administered on 10/14/17 20:43; Admin Dose 100 MG; Start 10/11/17 at 15:30 Magnesium Hydroxide (Milk Of Mag) 30 ml DAILY PRN PO CONSTIPATION; Start 10/11 at 15:30 Miscellaneous Information 1 ea NOTE XX ; Start 10/11/17 at 16:00 Betamethasone/ Clotrimazole (Lotrisone Cr) 1 applic BID TOP Last administered on 10/16/17 09:22; Admin Dose 1 APPLIC; Start 10/11/17 at 21:00 Hydromorphone HCl (Dilaudid) 1 mg Q2H PRN IV PAIN Last administered on 17:42; Admin Dose 1 MG; Start 10/11/17 at 18:30 Diagnostic Test (Pha) (Accu-Chek) 1 ea 02 XX ; Start 10/13/17 at 02:00 Miscellaneous Information 1 ea NOTE XX ; Start 10/12/17 at 13:00 Glucose (Glutose) 15 gm Q15M PRN PO DECREASED GLUCOSE; Start 10/12/17 at 13:00 Glucose (Glutose) 22.5 gm Q15M PRN PO DECREASED GLUCOSE; Start 10/12/17 at 13: 00 Dextrose (D50w Syringe) 25 ml Q15M PRN IV DECREASED GLUCOSE; Start 10/12/17 at 13:00 Dextrose (D50w Syringe) 50 ml Q15M PRN IV DECREASED GLUCOSE; Start 10/12/17 at 13:00 Glucagon (Glucagen) 1 mg Q15M PRN IM DECREASED GLUCOSE; Start 10/12/17 at 13: 00 Glucose (Glutose) 15 gm Q15M PRN BUCCAL DECREASED GLUCOSE; Start 10/12/17 at 13:00 Fluoxetine HCl (Prozac) 20 mg DAILY PO Last administered on 10/16/17 09:22; Admin Dose 20 MG; Start 10/13/17 at 15:30 Linagliptin 5 mg 5 mg DAILY PO Last administered on 10/16/17 09:22; Admin Dose 5 MG; Start 10/14/17 at 09:00 Vancomycin HCl/ Sodium Chloride (Vancocin/NS) 250 ml @ 83.333 mls/ hr Q8H IVPB Last administered on 10/16/17 11:16; Admin Dose 83.333 MLS/HR; Start at 19:00 Voriconazole (Vfend) 200 mg BID PO Last administered on 10/16/17 09:22; Admin Dose 200 MG; Start 10/15/17 at 21:00 Valacyclovir HCl (Valtrex) 1,000 mg BID PO Last administered on 10/16/17 14: 48; Admin Dose 1,000 MG; Start 10/16/17 at 13:30 Insulin Detemir (Levemir) 16 unit DAILY@20 SC ; Start 10/16/17 at 20:00 BRETT BRADLEY MD Oct 16, 2017 18:33
[2017-10-16 19:58] VITALS: BP 115/75; RESP 20
[2017-10-16] MEDS ORDERED: INSULIN DETEMIR [LEVEMIR] 3ML CART SC SCH (20:00)
--- NOTE | 2017-10-16 22:05 | QN ---
Documentation Comment I was asked by primary team to reevaluate this 22-year-old female who was admitted to medicine service due to ulcerative labial lesions for the past couple of days. Patient status post consultation with FIRE DISPATCHER. Lesions was concern for herpes genitalis. Had been a started on prednisone and acyclovir. No improvement over the past couple of days. Patient reports lesions started after she used a ball bath, subsequently had swelling of the labia with skin erythema and then ended to denuded skin. Had used hydrocortisone cream prior to come to the hospital that worsened her symptoms. Patient denies any prior history of herpes genitalis in the past herpes genital culture as well as antibodies are pending. Today patient reports does not feel any improvement of her symptoms. Still left labia that has ulcers are sore and painful. Reports burning when touched the urine. Reports topical cream that used in the hospital helped mildly with the symptoms. Patient denies any other symptom General appearance: Alert and oriented 4 appears to be in mild to moderate distress. External genitalia: There is evidence of wide skin denuded areas over the left labia majora , with no evidence of infecion. Margins of the ulcers sharp ulcers are clean. With no evidence of skin necrosis or infection. Very tender to palpation. No abnormal drainage noted exam questionable for Genital herpes versus pemphigoid reaction versus contact dermatitis severe due to chemical that the patient use assessmentd. Assessment Painful ulcerative genital lesions after use some topical bath palms could be. Severe allergic reaction cannot rule out Herpetic lesions versus pemphigoid lesions of the vulva Patient denies any oral ulcers Denies any prior history of genital herpes Since the symptoms still persist despite of using antiviral medication and steroid oral recommended a dermatology consultation. Follow-up with the culture and antibodies Continue the same management Contact for any other questions MARCELO HAYES MD Oct 16, 2017 22:05
[2017-10-17 01:58] VITALS: BP 101/61; RESP 18
[2017-10-17] MEDS: ACCU-CHEK XX SCH (02:00)
[2017-10-17] MEDS: VANCOMYCIN 1.25 GM in SOD CHLORIDE 0.9% 250 ML IVPB SCH ×2 (02:40→10:57)
[2017-10-17 07:30] VITALS: BP 107/64; RESP 18
[2017-10-17] MEDS: metFORMIN 500 MG TAB PO SCH (08:39)
[2017-10-17] MEDS: VORICONAZOLE 200 MG TAB PO SCH (08:39)
[2017-10-17] MEDS: FLUOXETINE 20 MG CAP PO SCH (08:39)
[2017-10-17] MEDS: LINAGLIPTIN 5 MG TABLET PO SCH (08:39)
[2017-10-17] MEDS: VALACYCLOVIR 500 MG TAB PO SCH (08:39)
[2017-10-17] MEDS: INSULIN ASPART [NOVOLOG] 3 ML PEN SC SCH ×4 (08:41→12:02)
[2017-10-17] MEDS: BETAMETHASONE/CLOTRIMAZOLE 15 GM CR TOP SCH (08:45)
[2017-10-17] MEDS: HYDROmorphONE 1 MG/ML SYG IV PRN ×2 (10:57→14:49)
--- NOTE | 2017-10-17 11:21 | CONS ---
Date/Time of Note Date/Time of Note DATE: 10/17/17 TIME: 11:19 Assessment/Plan Assessment/Plan Chief Complaint/Hosp Course SUBJECTIVE: No acute events, no fevers, looks comfortable MICROBIOLOGY: Vaginal lesion growing strep, Alena albicans, enterococcus, Staphylococcus aureus and Alena glabrata. ANTIMICROBIALS: 1. Vfend 2. Vancomycin. 2. Valtrex. PHYSICAL EXAMINATION: GENERAL: Well-developed, young woman who is awake, in no distress. HEENT: Head atraumatic, normocephalic. Sclerae anicteric. Buccal mucosa pink. NECK: Supple. CHEST: Rise symmetrical. Breath sounds clear. HEART: S1, S2. ABDOMEN: Soft, bowel sounds present. EXTREMITIES: No cyanosis. ASSESSMENT: 1. Vaginal lesions, cultures growing multiple organisms. 2. Diabetes. PLAN: The patient remains stable. Continue present care. Consider dc home on Valtrex, topical Lotrimin and Clindamycin gel for 5-7 more days, f/u with WEB WEAVER for further rec-s dw pt Problems: Consultation Date/Type/Reason Admit Date/Time Oct 13, 2017 at 11:39 Initial Consult Date 10/12/17 Type of Consultation: id Referring Provider: ALE CASON Exam/Review of Systems Vital Signs Vitals Vital Signs Date Time Temp Pulse Resp B/P Pulse Ox O2 Delivery O2 Flow Rate FiO2 10/17/17 07:30 98.3 88 18 107/64 97 Intake and Output 10/16/17 10/16/17 10/17/17 15:00 23:00 07:00 Intake Total 250 ml 1220 ml 800 ml Output Total 1700 ml 1100 ml Balance 250 ml -480 ml -300 ml Results Result Diagram: 10/14/17 0532 10/16/17 0518 Results 24 hrs Laboratory Tests Test 10/16/17 12:00 10/16/17 12:39 10/16/17 17:30 10/16/17 20:33 Bedside Glucose 86 98 119 109 Test 10/17/17 08:40 Bedside Glucose 184 Medications Medications Current Medications Ondansetron HCl (Zofran Inj) 4 mg Q6H PRN IV NAUSEA AND/OR VOMITING Last administered on 10/16/17t 20:16; Admin Dose 4 MG; Start 10/11/17 at 15:30 Acetaminophen (Tylenol Tab) 650 mg Q6H PRN PO PAIN LEVEL 1-3 OR FEVER Last administered on 10/16/17 20:26; Admin Dose 650 MG; Start 10/11/17 at 15:30 Acetaminophen/ Hydrocodone Bitart ([place] (5/325)) 1 tab Q6H PRN PO MODERATE PAIN LEVEL 4-6; Start 10/11/17 at 15:30 Docusate Sodium (Colace) 100 mg Q12H PRN PO CONSTIPATION Last administered on 10/14/17 20:43; Admin Dose 100 MG; Start 10/11/17 at 15:30 Magnesium Hydroxide (Milk Of Mag) 30 ml DAILY PRN PO CONSTIPATION; Start 10/11 at 15:30 Miscellaneous Information 1 ea NOTE XX ; Start 10/11/17 at 16:00 Betamethasone/ Clotrimazole (Lotrisone Cr) 1 applic BID TOP Last administered on 10/17/17 08:45; Admin Dose 1 APPLIC; Start 10/11/17 at 21:00 Hydromorphone HCl (Dilaudid) 1 mg Q2H PRN IV PAIN Last administered on 10:57; Admin Dose 1 MG; Start 10/11/17 at 18:30 Diagnostic Test (Pha) (Accu-Chek) 1 ea 02 XX ; Start 10/13/17 at 02:00 Miscellaneous Information 1 ea NOTE XX ; Start 10/12/17 at 13:00 Glucose (Glutose) 15 gm Q15M PRN PO DECREASED GLUCOSE; Start 10/12/17 at 13:00 Glucose (Glutose) 22.5 gm Q15M PRN PO DECREASED GLUCOSE; Start 10/12/17 at 13: 00 Dextrose (D50w Syringe) 25 ml Q15M PRN IV DECREASED GLUCOSE; Start 10/12/17 at 13:00 Dextrose (D50w Syringe) 50 ml Q15M PRN IV DECREASED GLUCOSE; Start 10/12/17 at 13:00 Glucagon (Glucagen) 1 mg Q15M PRN IM DECREASED GLUCOSE; Start 10/12/17 at 13: 00 Glucose (Glutose) 15 gm Q15M PRN BUCCAL DECREASED GLUCOSE; Start 10/12/17 at 13:00 Fluoxetine HCl (Prozac) 20 mg DAILY PO Last administered on 10/17/17 08:39; Admin Dose 20 MG; Start 10/13/17 at 15:30 Linagliptin 5 mg 5 mg DAILY PO Last administered on 10/17/17 08:39; Admin Dose 5 MG; Start 10/14/17 at 09:00 Vancomycin HCl/ Sodium Chloride (Vancocin/NS) 250 ml @ 83.333 mls/ hr Q8H IVPB Last administered on 10/17/17 10:57; Admin Dose 83.333 MLS/HR; Start at 19:00 Voriconazole (Vfend) 200 mg BID PO Last administered on 10/17/17 08:39; Admin Dose 200 MG; Start 10/15/17 at 21:00 Valacyclovir HCl (Valtrex) 1,000 mg BID PO Last administered on 10/17/17 08: 39; Admin Dose 1,000 MG; Start 10/16/17 at 13:30 Insulin Detemir (Levemir) 16 unit DAILY@20 SC Last administered on 10/16/17 20:39; Admin Dose 16 UNIT; Start 10/16/17 at 20:00 Miscellaneous Information (*Rx Drug Level Order Reminder*) 1 ONCE ONCE XX ; Start 10/18/17 at 10:00; Stop 10/18/17 at 10:01 Clotrimazole (Lotrimin Cr) 1 applic BID TOP ; Start 10/17/17 at 12:00 RICH SY NP Oct 17, 2017 11:21
[2017-10-17] MEDS ORDERED: CLOTRIMAZOLE 1% 30 GM CR TOP SCH (12:00)
[2017-10-17 14:00] VITALS: BP 138/71; RESP 18
[2017-10-17] MEDS ORDERED: VALA500T PO (14:55)
[2017-10-17] MEDS ORDERED: INSU100I27 SC (14:55)
[2017-10-17] MEDS ORDERED: NOVO3I SC (14:55)
[2017-10-17] MEDS ORDERED: CLIN-73 PO (14:55)
--- NOTE | 2017-10-17 14:59 | DS ---
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 Vaginal lesions were concerning for either fungal infection or HSV. She was treated with acyclovir and caspofungin per ID recommendations. Gynecology was consulted who agreed wt this management but recommended dermatology evaluation if no improvement. Unfortunately, travel sales consultant was unable to be found to do an inpatient consult. However, the patient's condition improved enough she wished to be discharged home and was instructed to follow up with a travel sales consultant if lesions contniued The patient also found to be markedly hyperglycemic, A1C > 11. She was treated with lantus and priandial insulin, discharged with 16 untis lantus and 8 untis novolog QAC. She will follow with treating house decorator Dr Saavedra following discharge. Home Meds Active Scripts Insulin Detemir (Levemir Flextouch) 100 Unit/1 Ml Insuln.pen, 16 UNIT SC DAILY@ 20 for 30 Days, #30 DOSE Prov:YESY BANDA MD 10/17/17 Insulin Aspart* (Novolog Insulin Pen*) 100 Unit/Ml Soln, 8 UNIT SC WITH MEALS for 20 Days, #60 DOSE Prov:YESY BANDA MD 10/17/17 Valacyclovir Hcl* (Valacyclovir Hcl*) 500 Mg Tablet, 1000 MG PO BID, #20 TAB Prov:YESY BANDA MD 10/17/17 Clindamycin Hcl* (Clindamycin Hcl*) 300 Mg Capsule, 300 MG PO TID for 5 Days, # 15 CAP Prov:YESY BANDA MD 10/17/17 Ibuprofen* (Motrin*) 600 Mg Tab, 600 MG PO Q6H Y for PAIN AND OR ELEVATED TEMP, #20 TAB Prov:DISLA,BRETT M MD 01/19/17 Reported Medications Metformin* (Glucophage*) 500 Mg Tab, 500 MG PO BID, #1 03/01/13 Discontinued Reported Medications Insulin Lispro (Humalog) 100 U/Ml Insuln.pen, 0 SQ BREAKFAST AND DINNER 04/03/13 Metformin* (Glucophage*) 500 Mg Tab, 500 MG PO BID 04/03/13 Vit-Iron Fumarate-FA ( Vitamin Tablet) 1 Each Tablet, 1 EACH PO DAILY 04/03/13 Metformin* (Glucophage*) 500 Mg Tab, 500 MG PO AC MEALS 03/29/13 Nph, Human Insulin Isophane (Humulin N) 100 Units/Ml Vial, 32 SQ AC MEALS 03/29/13 Insulin Regular, Human (Humulin R) 100 Units/Ml Vial, 24 SC BEFORE MEALS 03/29/13 Vit/Fe Fumarate/Fa (Prenafirst Tablet) 1 Tab Tablet, 1 TAB PO 03/29/13 Insulin Lispro (Humalog) 100 U/Ml Vial, 0 SQ 03/01/13 Nph, Human Insulin Isophane* (Novolin N*) 100 U/Ml Vial, 0 SQ 03/01/13 Acyclovir* (Acyclovir*) 400 Mg Tablet, 400 MG PO TID, #1 02/15/13 Vits W-Ca,Fe,Fa(<1MG) () 1 Tab Tablet, 1 TAB PO DAILY, #1 02/15/13 Vits W-Ca,Fe,Fa(<1MG) () 1 Tab Tablet, 1 TAB PO DAILY 12/16/12 Insulin Glargine,Hum.rec.anlog (Lantus) 100 U/Ml Vial, 0 SQ 10/16/12 Insulin Regular, Human (Humulin R) 100 Units/Ml Vial, 0 SC 10/16/12 Discontinued Scripts Oxycodone HCl/Acetaminophen (Percocet 5-325 mg Tablet) 1 Each Tablet, 1 EACH PO DAILY, #10 TAB Prov:ENA TAYLOR PA-C 10/10/17 Cephalexin* (Keflex*) 500 Mg Capsule, 500 MG PO QID for 7 Days, CAP Prov:ENA TAYLOR PA-C 10/10/17 Azithromycin* (Zithromax*) 250 Mg Tablet, 250 MG PO .JuvenalPACK DIRECTED, #6 TAB TAKE 500 MG (2 TABS) THE FIRST DAY THEN 250 MG (1 TAB) DAYS 2-5 Prov:NORIS ALVAREZ MD 10/08/17 Hydrocodone/Acetaminophen ([place] 5-325 Tablet) 1 Each Tablet, 1 TAB PO Q6H Y for PAIN, #20 TAB Prov:NORIS ALVAREZ MD 10/08/17 Valacyclovir HCl (Valtrex) 1,000 Mg Tablet, 1000 MG PO TID for 7 Days, TAB Prov:NORIS ALVAREZ MD 10/08/17 Diphenhydramine Hcl* (Benadryl*) 25 Mg Cap, 25 MG PO Q6, #30 CAP Prov:BRITTANY JIMENEZ PA-C 10/07/17 Hydrocodone/Acetaminophen ([place] 5-325 Tablet) 1 Each Tablet, 1 TAB PO Q6H Y for PAIN, #10 TAB Prov:BRITTANY JIMENEZ PA-C 10/07/17 Hydrocortisone* Topical (Hydrocortisone* Topical) 2.5%-28.3 Gm Cream..g., 1 APPLIC TOP BID, #1 TUB Prov:BRITTANY JIMENEZ PA-C 10/07/17 Prednisone* (Prednisone*) 20 Mg Tab, 40 MG PO DAILY for 4 Days, TAB Prov:BRITTANY JIMENEZ PA-C 10/07/17 Hydrocodone/Acetaminophen ([place] 5-325 Tablet) 1 Each Tablet, 1 TAB PO Q6H Y for SEVERE PAIN LEVEL 7-10, #20 TAB Prov:ISAIAS GARCES NP 04/01/17 Tramadol HCl (Tramadol HCl) 50 Mg Tablet, 50 MG PO Q6 Y for SEVERE PAIN LEVEL 7- 10, #20 TAB Prov:ISAIAS AGRCES NP 03/04/17 Oseltamivir Phosphate* (Tamiflu*) 75 Mg Capsule, 75 MG PO BID for 5 Days, CAP Prov:BRETT DISLA MD 01/19/17 Miconazole/Skin Cleanser No.17 (Monistat 3 Combo Pack) 1 Each Kit, 1 EACH VAGINAL QPM, #1 KIT Prov:CRISTIAN RUEDA NP 06/29/16 Ibuprofen* (Motrin*) 800 Mg Tab, 800 MG PO Q8 Y for PAIN AND OR ELEVATED TEMP, # 30 TAB Prov:CRISTIAN RUEDA NP 06/29/16 Sulfamethoxazole-Trimethoprim* (Bactrim* DS) 800-160 Mg Tab, 1 TAB PO BID for 10 Days, TAB Prov:JERONIMO RUSSELL PA-C 02/21/16 Ondansetron Hcl* (Zofran* ODT) 8 mg -ODT Tab.disper, 8 MG PO Q6 Y for NAUSEA AND /OR VOMITING, #10 TAB Prov:KATHRYN HOGAN MD 01/23/16 Ibuprofen* (Motrin*) 600 Mg Tab, 600 MG PO Q6, #20 TAB Prov:KATHRYN HOGAN MD 01/23/16 Ciprofloxacin Hcl* (Ciprofloxacin Hcl*) 500 Mg Tablet, 500 MG PO BID for 10 Days , TAB Prov:KATHRYN HOGAN MD 01/23/16 Ondansetron Hcl* (Zofran* ODT) 4 mg -ODT Tab.disper, 4 MG PO Q8 Y for NAUSEA AND /OR VOMITING, #30 TAB Prov:ISAIAS GARCES NP 12/06/15 Ibuprofen* (Motrin*) 600 Mg Tab, 600 MG PO Q6H Y for PAIN AND OR ELEVATED TEMP, #30 TAB Prov:ISAIAS GARCES NP 12/06/15 Primary Care Provider Care Physician No Primary Pending Labs Laboratory Tests Test 10/16/17 17:30 10/16/17 20:33 10/17/17 08:40 10/17/17 11:54 Bedside Glucose 119mg/dL (70-220) 109mg/dL (70-220) 184mg/dL (70-220) 255mg/dL (70-220) YESY BANDA MD Oct 17, 2017 14:59
--- NOTE | 2017-10-17 15:02 | PDOCDIS ---
Discharge Instructions DIAGNOSIS Discharge Diagnosis Vaginitis CONDITION Patient Condition: Fair HOME CARE INSTRUCTIONS: Special Diet: CCHO FOLLOW UP/APPOINTMENTS Follow-up Plan Follow up with your gps navigation installer for further treatment, and if needed a head chef It is very improtant for you to take your insulin as prescribed. Make an appointment with Dr Saavedra for further management of your diabetes YESY BANDA MD Oct 17, 2017 15:02
[2017-10-17] MEDS ORDERED: LINA5TAB PO (15:03)
[2017-10-17] MEDS ORDERED: [UNRECOGNIZED DRUG - CODE] MC (15:04)
[2017-10-17] MEDS ORDERED: INSULIN ASPART [NOVOLOG] 3 ML PEN SC SCH (17:35)
[2017-10-17] MEDS ORDERED: INSULIN DETEMIR [LEVEMIR] 3ML CART SC SCH (20:00)
[2017-10-17] MEDS ORDERED: CLINDAMYCIN 1% 30 GM GEL TOP SCH (21:00)
== END 2017-10-17 16:58 | disposition home or self-care (01) | DRG 759 ==
LOC: FTE 10:55 → PP2 13:25 → OBSVTOIN 10-13 11:39 → PP2 10-13 11:57
PROVIDERS: ADMIT Internal Medicine; ATTEND Internal Medicine
DX: A60.04 Herpesviral vulvovaginitis (principal); E11.65 Type 2 diabetes mellitus with hyperglycemia; F32.9 Major depressive disorder, single episode, unspecified; E06.3 Autoimmune thyroiditis; B95.1 Streptococcus, group B, as the cause of diseases classified elsewhere; B95.2 Enterococcus as the cause of diseases classified elsewhere; B37.3 Candidiasis of vulva and vagina; B95.61 Methicillin susceptible Staphylococcus aureus infection as the cause of diseases classified elsewhere; Z79.4 Long term (current) use of insulin; Z86.32 Personal history of gestational diabetes
CPT/HCPCS: 80048; 80202; 82565; 82962; 83036; 83735; 84100; 84436; 84443; 84479; 84520; 84681; 85025; 86337; 86341; 86376; 86694; 87070; 87255; 87529; 90686; 96374; 96375; G0378; J0133; J1170; J1815; J2060; J2270; J2405; J3370; J7040; J7050

== ENCOUNTER 2018-03-27 07:35 | Emergency (ER) | END 2018-03-27 09:52 | disposition home or self-care (01) ==

== ENCOUNTER 2018-05-03 18:45 | Emergency (ER) | END 2018-05-03 22:40 | disposition home or self-care (01) ==

== ENCOUNTER 2018-05-07 15:22 | Emergency (ER) | END 2018-05-07 19:26 | disposition home or self-care (01) ==

== ENCOUNTER 2018-07-01 23:35 | Emergency (ER) | END 2018-07-02 03:30 | disposition home or self-care (01) ==